=== PATIENT | male | born 1965 | race Caucasian/White ===

== ENCOUNTER 2019-10-06 19:57 | Emergency (ER) | payer BC, SELFPAY ==
[2019-10-06 20:22] VITALS: BP 169/116; RESP 16; TEMP 37.1; O2SAT 98; BMI 26.5
--- NOTE | 2019-10-06 20:29 | XR_ITS ---
PROCEDURE: XR CHEST 2V CLINICAL HISTORY: chest pain COMPARISON: CSW3D CT CALCIUM SCORING W/3D from 11/29/2016 FINDINGS: The cardiomediastinal silhouette and pulmonary vascularity are within normal limits. The lungs are clear without infiltrates, suspicious nodules, or pleural effusions. Midthoracic scoliosis convex right. There is mild wedging what appears to represent the T7 which is age indeterminate.. IMPRESSION: Mild wedging of T7 age indeterminate with mild midthoracic scoliosis convex right otherwise negative. MRI may provide further evaluation to determine the age of the mild compression changes at T7. Dictated by: Terry Murguia MD 10/07/2019 08:21 Electronically signed by Terry Murguia MD in [place] 10/07/2019 08:21
--- NOTE | 2019-10-06 20:30 | ECG_ITS ---
APPROVED REPORT Exam: Resting ECG HR:74 bpm ECG Measurements Heart Rate 74 AXES MA 162 P 64 QRSd 80 QRS 4 QT 378 T 39 QTc 419 <Conclusion> Sinus rhythm with frequent premature ventricular complexes Possible Left atrial enlargement Left ventricular hypertrophy Abnormal ECG Electronically signed by : Wily Wade, 10/07/2019 10:52:36
[2019-10-06 20:36] LABS: Basophils # 0.1 K/mm3 (0-0.2); Eosinophils # 0.1 K/mm3 (0.0-0.4); Eosinophils % 1.5 % (0.1-12.0); Hematocrit 47.7 % (42.0-52.0); Hemoglobin 16.3 g/dL (14.1-18.0); Lymphocytes # 2.1 K/mm3 (0.7-4.5); Lymphocytes % 31.2 % (10-50); Mean Corpuscular HGB Conc 34.2 g/dL (31.8-35.4); Mean Corpuscular Hemoglobin 33.3 pg (27.0-31.2); Mean Corpuscular Volume 97.5 fl (80-94); Mean Platelet Volume 8.9 fl (7.4-10.4); Monocytes # 0.3 K/mm3 (0.1-1.0); Monocytes % 4.9 % (1.7-9.3); Neutrophils # 4.2 K/mm3 (1.8-7.8); Neutrophils % 61.3 % (37.0-80.0); Platelet Count 190 K/mm3 (142-424); Red Cell Distribution Width 13.2 % (11.5-17.5); White Blood Count 6.9 K/mm3 (4.8-10.8)
[2019-10-06 20:44] LABS: Alanine Aminotransferase 50 U/L (12-78); Albumin Level 5.2 g/dl (3.5-5.0); Albumin/Globulin Ratio 1.5 (1.1-1.8); Alkaline Phosphatase 73 U/L (38-126); Anion Gap 9.9 mEq/L (5-15); Aspartate Amino Transferase 55 U/L (17-59); Blood Urea Nitrogen 14 mg/dl (9-20); Calcium 10.5 mg/dl (8.4-10.2); Carbon Dioxide 29 mmol/L (22.0-30.0); Chloride 103 mmol/L (98-107); Creatinine Clearance Estimated 90 mL/min (50-200); Estimated Glomerular Filt Rate 69 ml/min (>60); GFR (African American) 84 ML/MIN (>60); Globulin 3.4 g/dL (1.3-3.2); Glucose 94 mg/dl (74-100); Potassium 3.9 mmoL/L (3.5-5.1); Sodium 138 mmol/L (136-145); Total Protein,Serum 8.6 g/dl (6.3-8.2)
[2019-10-06 20:58] LABS: Troponin I < 0.01 ng/ml (0.00-0.034)
--- NOTE | 2019-10-06 21:00 | HMH.EDCP ---
ED Disposition Clinical Impression: Atypical chest pain, Anxiety Gastroesophageal reflux disease Qualifiers: Esophagitis presence: esophagitis presence not specified Qualified Code(s): K21.9 - Gastro-esophageal reflux disease without esophagitis Disposition: Home, Self-Care Condition on Discharge: Good Instructions: DI for Atypical Chest Pain Additional Instructions: call pcp in am Referrals: Lili Frank PA [Primary Care Provider] - - Critical Care Critical Care Time: No Attestation: On 10/06/19, the high probability of a clinically significant, sudden or life threatening deterioration of the following system(s) required my full and direct attention, intervention and personal management. The time I documented below is in addition to time spent performing reported procedures but includes the following listed in this critical care notation. Medical Decision Making - Medical Records Medical records reviewed: Yes: I reviewed the patient's medical records. - Moustapha Inquiry Pt receiving controlled substance: No Vital Signs: 10/06/19 20:22 Temperature 98.8 F Temperature Source Oral Respiratory Rate 16 Blood Pressure [Right Arm] 169/116 H Blood Pressure Mean [Right Arm] 133 Blood Pressure Source [Right Arm] Automatic Cuff Blood Pressure Position [Right Arm] Sitting 02 Sat by Pulse Oximetry 98 Oxygen Delivery Method Room Air - Lab Data Lab results reviewed: Yes: I reviewed the patient's lab results. Lab Results 10/06/19 20:20: WBC 6.9, RBC 4.90, Hgb 16.3, Hct 47.7, MCV 97.5 H, MCH 33.3 H, MCHC 34.2, RDW 13.2, Plt Count 190, MPV 8.9, Neut % (Auto) 61.3, Lymph % (Auto) 31.2, [place] % (Auto) 4.9, Eos % (Auto) 1.5, Baso % (Auto) 1.0, Neut # (Auto) 4.2, Lymph # (Auto) 2.1, [place] # (Auto) 0.3, Eos # (Auto) 0.1, Baso # (Auto) 0.1 10/06/19 20:20: Sodium 138, Potassium 3.9, Chloride 103, Carbon Dioxide 29, Anion Gap 9.9, BUN 14, Creatinine 1.10, Estimated Creat Clear 90, Estimated GFR 69, Est GFR ( Amer) 84, Glucose 94, Calcium 10.5 H, Total Bilirubin 1.0, AST 55, ALT 50, Alkaline Phosphatase 73, Troponin I < 0.01, Total Protein 8.6 H, Albumin 5.2 H, Globulin 3.4 H, Albumin/Globulin Ratio 1.5 Result diagrams: 10/06/19 20:20 10/06/19 20:20 Orders (Tests/Meds): ED MEDICATIONS Generic Name Dose Route Start Last Admin Trade Name Freq PRN Reason Stop Dose Admin Sodium Chloride 1,000 mls @ 999 mls/hr 10/06/19 20:45 10/06/19 21:04 Sod Chlor 0.9% 1000ml Bag IV 10/06/19 21:45 999 mls/hr .Q1H1M FRANCIA Administration Sodium Chloride 8 ml 10/06/19 20:32 Sodium Chloride 0.9% 10ml Vial IV 11/05/19 20:31 NEEDED PRN dilute pepcid Discontinued Medications Generic Name Dose Route Start Last Admin Trade Name Freq PRN Reason Stop Dose Admin Famotidine 20 mg 10/06/19 20:32 10/06/19 20:35 Pepcid 20mg/2ml Vial IV 10/06/19 20:33 20 mg ONCE ONE Administration Metoclopramide HCl 10 mg 10/06/19 20:32 10/06/19 20:35 Reglan 10mg/2ml Vial IVP 10/06/19 20:33 10 mg ONCE ONE Administration ORDERS Category Date Time Status XR chest 2V Stat Exams 10/06/19 20:29 Ordered Lipase Stat Lab 10/06/19 20:29 Received Troponin I Q3H Lab 10/06/19 23:30 Ordered Troponin I Q3H Lab 10/07/19 02:30 Ordered - Radiology Data #1 Image(s): Chest Image Reviewed: Yes I reviewed the patient's radiology image Preliminary Findings: Normal/NAD - ECG Data Tracing #1 Normal Sinus Rhythm: Yes Ischemic changes: non-specific ST-T wave changes - Reevaluation(s) Time: 21:37 Reevaluation #1: improved Chest Pain HPI - General Chief Complaint: Chest Pain Stated Complaint: pain in stomach,left leg pain Time Seen by Provider: 10/06/19 20:30 Mode of Arrival: Ambulatory Source of Information: Patient, Medical Record Limitations: No Limitations Description of Symptoms (Recalled from ER Triage Doc. by RN): Patient reports epigastic pain that goes up into hi
--- NOTE | 2019-10-06 21:15 | PC.NURSE ---
notified wade porter of orders
[2019-10-06 21:52] LABS: Lipase 79 U/L (23-300)
[2019-10-06 22:05] VITALS: BP 153/115; PULSE 66; RESP 14; TEMP 37.1; O2SAT 96
== END 2019-10-06 22:06 | disposition home or self-care (01) ==
PROVIDERS: Emergency Provider Emergency Medicine; PCP Physician Assistant
DX: R07.89 Other chest pain (principal); F41.9 Anxiety disorder, unspecified; K21.9 Gastro-esophageal reflux disease without esophagitis; E78.5 Hyperlipidemia, unspecified; I10 Essential (primary) hypertension; Z79.899 Other long term (current) drug therapy
CPT/HCPCS: 71046; 80053; 83690; 84484; 85025; 93005; 96365; 96375; 99283

== ENCOUNTER → 2019-10-22 08:38 | Outpatient (CLI) | payer BC, SELFPAY ==
--- NOTE | 2019-10-22 08:38 | MR_ITS ---
PROCEDURE: MR KNEE LT WO CON CLINICAL INDICATION: Left knee pain Left knee pain with swelling and instability COMPARISON: No exams were available for comparison TECHNIQUE: Routine multiplanar multi echo sequences are performed without gadolinium enhancement. FINDINGS: The cruciate ligaments, collateral ligaments, patellar tendon, and quadriceps tendon have an unremarkable appearance. The patellar cartilage is preserved. Patella is in good location. There is linear increased T2 signal involving the posterior horn of the medial meniscus. This however does not communicate with the articular surface of the meniscus and does not meet strict MRI criteria for meniscal tear. The lateral meniscus has an unremarkable appearance. There is a small amount of fluid in the knee joint. No bone bruise or fracture evident. IMPRESSION: No evidence of internal derangement. Small amount of fluid in the knee joint. Dictated by: Terry Murguia MD 10/24/2019 15:07 Electronically signed by Terry Murguia MD in [place] 10/24/2019 15:07
== END ==
PROVIDERS: PCP Physician Assistant; Visit Provider Physician Assistant
DX: M25.562 Pain in left knee (principal)
CPT/HCPCS: 73721

== ENCOUNTER → 2019-11-04 08:57 | Outpatient (CLI) | payer BC, SELFPAY ==
--- NOTE | 2019-11-04 09:00 | XR_ITS ---
PROCEDURE: XR KNEE LT 4V CLINICAL INDICATION: left knee pain COMPARISON: No exams were available for comparison FINDINGS: No fracture or dislocation. No lytic or blastic change. There is normal mineralization. The joint spaces are well-preserved. No significant degenerative/arthritic changes. No erosive changes evident. Other findings:None. IMPRESSION: No acute findings. Dictated by: Bhavin Harrison 11/04/2019 09:35 Electronically signed by Bhavin Harrison in [place] 11/04/2019 09:35
--- NOTE | 2019-11-04 11:00 | XR_ITS ---
PROCEDURE: XR HIP LT 2-3V W/PELVIS CLINICAL INDICATION: lt knee; lt hip pain COMPARISON: No exams were available for comparison FINDINGS: Left hip joint is unremarkable. There are no significant degenerative changes. There is no fracture, dislocation, or soft tissue abnormalities. SI joints are unremarkable. IMPRESSION: Negative Note: If a subtle fracture suspected an MR scan recommended. Dictated by: Bhavin Harrison 11/04/2019 11:19 Electronically signed by Bhavin Harrison in [place] 11/04/2019 11:19
== END ==
PROVIDERS: PCP Physician Assistant; Visit Provider Orthopaedic Surgery
DX: M25.552 Pain in left hip; M25.562 Pain in left knee
CPT/HCPCS: 73502; 73564

== ENCOUNTER 2019-11-10 17:56 | Emergency (ER) | payer BC, SELFPAY ==
[2019-11-10 17:57] VITALS: BP 150/104; PULSE 75; RESP 18; TEMP 36.7; O2SAT 97; BMI 27.1
--- NOTE | 2019-11-10 18:19 | ECG_ITS ---
APPROVED REPORT Exam: Resting ECG HR:66 bpm ECG Measurements Heart Rate 66 AXES OR 154 P 69 QRSd 84 QRS 11 QT 390 T 50 QTc 408 <Conclusion> Normal sinus rhythm Normal ECG Electronically signed by : Jose C Wiley, 11/16/2019 17:16:35
--- NOTE | 2019-11-10 18:19 | XR_ITS ---
PROCEDURE: XR CHEST 2V CLINICAL HISTORY: SPASMS UNDER LT BREAST Chest pain COMPARISON: XR CHEST 2V from 10/06/2019 FINDINGS: The cardiomediastinal silhouette and pulmonary vascularity are within normal limits. The lungs are clear without infiltrates, suspicious nodules, or pleural effusions. No acute bony abnormalities. IMPRESSION: No acute findings. Dictated by: Terry Murguia MD 11/11/2019 07:58 Electronically signed by Terry Murguia MD in [place] 11/11/2019 07:58
[2019-11-10 18:46] LABS: Basophils % 0.4 % (0.1-2.0); Eosinophils # 0.1 K/mm3 (0.0-0.4); Eosinophils % 1.4 % (0.1-12.0); Lymphocytes # 2.3 K/mm3 (0.7-4.5); Lymphocytes % 23.4 % (10-50); Mean Corpuscular HGB Conc 34.2 g/dL (31.8-35.4); Mean Corpuscular Hemoglobin 33.5 pg (27.0-31.2); Mean Corpuscular Volume 97.9 fl (80-94); Mean Platelet Volume 8.5 fl (7.4-10.4); Monocytes # 0.5 K/mm3 (0.1-1.0); Monocytes % 4.7 % (1.7-9.3); Neutrophils # 6.9 K/mm3 (1.8-7.8); Neutrophils % 70.1 % (37.0-80.0); Platelet Count 223 K/mm3 (142-424); Red Blood Count 4.79 M/mm3 (4.60-6.20); Red Cell Distribution Width 12.6 % (11.5-17.5); White Blood Count 9.9 K/mm3 (4.8-10.8)
[2019-11-10 18:56] LABS: Chloride 106 mmol/L (98-107); Sodium 140 mmol/L (136-145)
[2019-11-10 18:57] LABS: Potassium 3.8 mmoL/L (3.5-5.1)
[2019-11-10 18:59] LABS: Alanine Aminotransferase 54 U/L (12-78); Albumin Level 4.6 g/dl (3.5-5.0); Albumin/Globulin Ratio 1.5 (1.1-1.8); Alkaline Phosphatase 74 U/L (38-126); Anion Gap 10.8 mEq/L (5-15); Aspartate Amino Transferase 49 U/L (17-59); Bilirubin,Total 0.8 mg/dl (0.2-1.3); Blood Urea Nitrogen 14 mg/dl (9-20); Carbon Dioxide 27 mmol/L (22.0-30.0); Creatinine Clearance Estimated 90 mL/min (50-200); Estimated Glomerular Filt Rate 69 ml/min (>60); GFR (African American) 84 ML/MIN (>60); Total Protein,Serum 7.6 g/dl (6.3-8.2)
[2019-11-10 19:00] LABS: Calcium 10.4 mg/dl (8.4-10.2); Glucose 97 mg/dl (74-100)
[2019-11-10 19:13] LABS: Troponin I < 0.01 ng/ml (0.00-0.034)
[2019-11-10 19:19] VITALS: BP 172/110; PULSE 70; O2SAT 96
--- NOTE | 2019-11-10 19:29 | HMH.EDGENADL ---
ED Disposition Clinical Impression: Gastroesophageal reflux disease Disposition: Home, Self-Care Condition on Discharge: Good Instructions: How to Measure Pain-Child Prescriptions: Promethazine HCl 50 mg PO TID 6 Days #20 tab Transmission Status: Pending to [id number] Pantoprazole Sodium [Protonix 40mg tablet] 40 mg PO DAILY 30 Days #30 tab Transmission Status: Pending to [id number] Referrals: Lili Frank PA [Primary Care Provider] - - Critical Care Critical Care Time: No Attestation: On 11/10/19, the high probability of a clinically significant, sudden or life threatening deterioration of the following system(s) required my full and direct attention, intervention and personal management. The time I documented below is in addition to time spent performing reported procedures but includes the following listed in this critical care notation. Medical Decision Making - Medical Records Medical records reviewed: Yes: I reviewed the patient's medical records. - Moustapha Inquiry Pt receiving controlled substance: No Vital Signs: 11/10/19 17:57 11/10/19 19:19 Temperature 98.1 F Temperature Source Oral Pulse Rate [Right Radial] 75 70 Respiratory Rate 18 Blood Pressure [Right Arm] 150/104 H 172/110 H Blood Pressure Mean [Right Arm] 119 130 Blood Pressure Source [Right Arm] Automatic Cuff Blood Pressure Position [Right Arm] Sitting 02 Sat by Pulse Oximetry 97 96 Oxygen Delivery Method Room Air - Lab Data Lab results reviewed: Yes: I reviewed the patient's lab results. Lab Results 11/10/19 18:35: WBC 9.9, RBC 4.79, Hgb 16.0, Hct 47.0, MCV 97.9 H, MCH 33.5 H, MCHC 34.2, RDW 12.6, Plt Count 223, MPV 8.5, Neut % (Auto) 70.1, Lymph % (Auto) 23.4, [place] % (Auto) 4.7, Eos % (Auto) 1.4, Baso % (Auto) 0.4, Neut # (Auto) 6.9, Lymph # (Auto) 2.3, [place] # (Auto) 0.5, Eos # (Auto) 0.1, Baso # (Auto) 0.0 11/10/19 18:35: Sodium 140, Potassium 3.8, Chloride 106, Carbon Dioxide 27, Anion Gap 10.8, BUN 14, Creatinine 1.10, Estimated Creat Clear 90, Estimated GFR 69, Est GFR ( Amer) 84, Glucose 97, Calcium 10.4 H, Total Bilirubin 0.8, AST 49, ALT 54, Alkaline Phosphatase 74, Troponin I < 0.01, Total Protein 7.6, Albumin 4.6, Globulin 3.0, Albumin/Globulin Ratio 1.5 Result diagrams: 11/10/19 18:35 11/10/19 18:35 Orders (Tests/Meds): ED MEDICATIONS Generic Name Dose Route Start Last Admin Trade Name Freq PRN Reason Stop Dose Admin Sodium Chloride 10 ml 11/10/19 18:20 Sodium Chloride 0.9% 10ml Vial IV 12/10/19 18:19 NEEDED PRN dilute protonix Discontinued Medications Generic Name Dose Route Start Last Admin Trade Name Freq PRN Reason Stop Dose Admin Belladonna Alkaloids 60 ml 11/10/19 18:20 11/10/19 18:33 Gi Cocktail 60ml Udc PO 11/10/19 18:21 60 ml ONCE ONE Administration Diazepam 10 mg 11/10/19 19:26 11/10/19 19:28 Valium 10mg Tablet PO 11/10/19 19:27 10 mg ONCE ONE Administration Pantoprazole Sodium 40 mg 11/10/19 18:20 11/10/19 18:33 Protonix 40mg Vial IV 11/10/19 18:21 40 mg ONCE ONE Administration ORDERS Category Date Time Status Chest XR 2 view (NOT portable) [XR chest 2V] Stat Exams 11/10/19 18:19 Taken Troponin I Q3H Lab 11/10/19 21:30 Ordered Troponin I Q3H Lab 11/11/19 00:30 Ordered - Radiology Data #1 Image(s): Chest Preliminary Findings: Normal/NAD General Adult HPI - General Chief complaint: PAIN Stated complaint: periodic sob Time Seen by Provider: 11/10/19 19:29 Mode of Arrival: Ambulatory Source of Information: Patient Limitations: No Limitations Description of Symptoms (Recalled from ER Triage Doc. by RN): PT STATES THAT SINCE YESTERDAY HE HAS BEEN HAVING AN OCCASIONAL SPASM FEELING IN THE UPPER LT EPIGASTRIC REGION, BELOW HIS LT BREAST. PT STATES THAT IT IS NOT IN HIS CHEST. PT STATES THAT WHEN THE SPASM OCCURS, IT TAKES HIS BREATH AND HE BECOMES SOA. PT REPO
[2019-11-10 19:41] VITALS: BP 131/98; PULSE 70; RESP 18; TEMP 36.7; O2SAT 97
== END 2019-11-10 19:44 | disposition home or self-care (01) ==
PROVIDERS: Emergency Provider Family Medicine; PCP Physician Assistant
DX: K21.9 Gastro-esophageal reflux disease without esophagitis (principal); E78.5 Hyperlipidemia, unspecified; I10 Essential (primary) hypertension; F41.9 Anxiety disorder, unspecified; Z79.899 Other long term (current) drug therapy
CPT/HCPCS: 71046; 80053; 84484; 85025; 93005; 96374; 99283

== ENCOUNTER → 2019-11-23 11:07 | Outpatient (CLI) | payer BC, SELFPAY ==
[2019-11-24 20:50] LABS: Covid-19 Nasal PCR Sendout Lex Not Detected
== END ==
PROVIDERS: PCP Physician Assistant; Visit Provider Physician Assistant
DX: Z03.818 Encounter for observation for suspected exposure to other biological agents ruled out (principal)
CPT/HCPCS: U0004

== ENCOUNTER → 2020-03-08 17:03 | Outpatient (CLI) | payer BC, SELFPAY ==
[2020-03-08 17:30] LABS: Basophils # 0.1 K/mm3 (0-0.2); Basophils % 1.4 % (0.1-2.0); Eosinophils # 0.4 K/mm3 (0.0-0.4); Eosinophils % 7.2 % (0.1-12.0); Hemoglobin 16.7 g/dL (14.1-18.0); Lymphocytes # 1.6 K/mm3 (0.7-4.5); Lymphocytes % 30.3 % (10-50); Mean Corpuscular HGB Conc 33.3 g/dL (31.8-35.4); Mean Corpuscular Hemoglobin 33.3 pg (27.0-31.2); Mean Corpuscular Volume 99.9 fl (80-94); Mean Platelet Volume 11.1 fl (7.4-10.4); Monocytes # 0.3 K/mm3 (0.1-1.0); Monocytes % 6.1 % (1.7-9.3); Neutrophils # 2.9 K/mm3 (1.8-7.8); Platelet Count 203 K/mm3 (142-424); Red Blood Count 5.01 M/mm3 (4.60-6.20); Red Cell Distribution Width 13.1 % (11.5-17.5); White Blood Count 5.2 K/mm3 (4.8-10.8)
[2020-03-08 17:37] LABS: Alanine Aminotransferase 43 U/L (12-78); Albumin Level 4.5 g/dl (3.5-5.0); Albumin/Globulin Ratio 1.5 (1.1-1.8); Alkaline Phosphatase 84 U/L (38-126); Anion Gap 15.4 mEq/L (5-15); Aspartate Amino Transferase 44 U/L (17-59); Bilirubin,Total 0.5 mg/dl (0.2-1.3); Blood Urea Nitrogen 15 mg/dl (9-20); Calcium 10.2 mg/dl (8.4-10.2); Carbon Dioxide 24 mmol/L (22.0-30.0); Chloride 106 mmol/L (98-107); Chol/HDL Ratio 5.5 (1-3.5); Cholesterol 262 mg/dl (140-200); Estimated Glomerular Filt Rate 63 ml/min (>60); GFR (African American) 76 ML/MIN (>60); Globulin 3.1 g/dL (1.3-3.2); Glucose 95 mg/dl (74-100); HDL Cholesterol 48 mg/dl (40-60); Potassium 4.4 mmoL/L (3.5-5.1); Sodium 141 mmol/L (136-145); Total Protein,Serum 7.6 g/dl (6.3-8.2); Triglycerides 200 mg/dl (30-150); VLDL Cholesterol 40 mg/dL (0-40)
[2020-03-08 17:48] LABS: Direct LDL Cholesterol 179.89 mg/dL (100-129)
[2020-03-08 18:09] LABS: Thyroid Stimulating Hormone 2.09 uIU/mL (0.465-4.68)
[2020-03-15 09:33] LABS: Vitamin B12 268 pg/mL (239-931)
[2020-03-15 09:38] LABS: Folate 4.94 ng/mL
== END ==
PROVIDERS: Visit Provider Physician Assistant
DX: E78.5 Hyperlipidemia, unspecified (principal); I10 Essential (primary) hypertension; E55.9 Vitamin D deficiency, unspecified
CPT/HCPCS: 80053; 80061; 82306; 82607; 82746; 84443; 85025

== ENCOUNTER 2020-04-04 09:17 | Emergency (ER) | payer BC, SELFPAY ==
[2020-04-04 09:20] VITALS: BP 161/86; PULSE 65; RESP 20; TEMP 36.9; O2SAT 96; BMI 26.4
[2020-04-04 09:22] VITALS: BP 154/98; PULSE 75; RESP 18; O2SAT 96; BMI 26.4
--- NOTE | 2020-04-04 09:39 | HMH.EDUTC ---
[facility] [place] Clinical Impression: Knee pain Qualifiers: Chronicity: chronic Laterality: left Qualified Code(s): M25.562 - Pain in left knee Disposition: Home, Self-Care Condition on Discharge: Good Instructions: How to Use Crutches, How to Apply an [place] Wrap, DI for Knee Pain Additional Instructions: *weight bearing as tolerated *RICE, Rest the extremity, Ice 15-20 minutes 3-4 times daily, Compress- wear the [place] wrap as discussed as much as possible to help reduce swelling and pain, Elevate the extremity when at rest *[place] wrap is for support and help control swelling, use it except in the shower. Be sure that is not to tight but not to loose either *Elevate when resting *Ibuprofen 600-800mg every 6-8 hours as needed for pain an inflammation. If need something more can take Tylenol in between doses of Ibuprofen to help Immediately follow up with your family doctor for new or worsening of symptoms, or no noticeable improvement over the next 3-5 days Follow up with Orthopedics as scheduled Return if needed Straight to ER if any life threatening symptoms Referrals: Lili Frank PA [Primary Care Provider] - As needed Hitesh Recinos MD [Staff Physician] - 04/12/20 2:45 pm Forms: Work/School Release Time of Disposition: 09:59 Medical Decision Making - Moustapha Inquiry Pt receiving controlled substance: No Moustapha was queried for this patient: No Vital Signs: 04/04/20 09:20 04/04/20 09:22 04/04/20 10:08 Temperature 98.5 F 98.5 F Temperature Source Oral Pulse Rate 75 Pulse Rate [Radial] 65 75 Respiratory Rate 20 18 20 Blood Pressure 154/98 H Blood Pressure [Right Arm] 161/86 H 154/98 H Blood Pressure Mean [Right Arm] 111 116 Blood Pressure Source [Right Arm] Automatic Cuff Automatic Cuff Blood Pressure Position [Right Arm] Sitting Sitting 02 Sat by Pulse Oximetry 96 96 Oxygen Delivery Method Room Air Room Air - Physician Consults Physician Consulted: Jorje Time: 09:48 Reason -: Orthopedic Eval/Care Comment/Response: Spoke with Dr Recinos office and confirmed appointment for Apr 12 2020 at 245pm Medical Decision Narrative: Discussed xray with patient and he declined States that he has had multiple xrays and MRI States that he has been having more pain on and off in the leg and feeling like it is going to give out wanted to get some crutches to see if would help and let it rest [facility] [place] - General Stated complaint: left leg pain and burning sensation,no accident Time Seen by Provider: 04/04/20 09:39 Mode of Arrival: Ambulatory Source of Information: Patient Limitations: No Limitations Description of Symptoms (Recalled from Triage Doc. by RN): Complaint of left leg burning and giving out. States he is seen by Dr. Recinos and his shot is wearing off. - History of Present Illness Provider Complaint: Patient states that sometimes he has to go to his pcp and Ortho for this pain States that she has been seeing Dr Recinos for this pain and he give him some injections in his hip and knee States that he feels like the shots are wearing off so he come in to see if he could get something to wrap his knee and some crutches States that he feels like the leg is going to give out on him and he wanted some crutches to help with walking and concerned with working until he can see Dr Recinos on Apr 12 - Related Data Home Medications Medication Instructions Recorded Confirmed Atorvastatin Calcium [Lipitor 10mg 10 mg PO HS 04/04/20 04/04/20 Tab] Metoprolol Succinate [Metoprolol 100 mg PO DAILY 04/04/20 04/04/20 Succinate 100mg Tablet*] Allergies Allergy/AdvReac Type Severity Reaction Status Date / Time No Known Allergies Allergy Verified 03/08/20 10:08 - Worker's Comp Is this a Worker's Comp case?: No [facility] History - Hepatitis A Screen Drug use history?: No High risk sexual behaviors?: No History of sexually transmitted infection?: No 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
[2020-04-04 10:08] VITALS: BP 154/98; PULSE 75; RESP 20; TEMP 36.9; O2SAT 96
== END 2020-04-04 10:15 | disposition home or self-care (01) ==
PROVIDERS: Emergency Provider Nurse Practitioner; PCP Physician Assistant
DX: M25.562 Pain in left knee (principal); I10 Essential (primary) hypertension; F41.9 Anxiety disorder, unspecified; K21.9 Gastro-esophageal reflux disease without esophagitis; E78.5 Hyperlipidemia, unspecified
CPT/HCPCS: 99201

== ENCOUNTER → 2020-06-20 14:24 | Outpatient (CLI) | payer BC, SELFPAY ==
[2020-06-20 15:47] LABS: Amphetamine/Metha Screen,Urine Negative ng/ml (<1000); Barbiturates Screen,Urine Negative ng/ml (<200)
[2020-06-20 15:49] LABS: Benzodiazepines Screen,Urine Positive ng/ml (<200)
[2020-06-20 15:50] LABS: Cannabinoid Screen,Urine Negative ng/ml (<50)
[2020-06-20 15:51] LABS: Cocaine Screen,Urine Negative ng/ml (<300); Methadone Screen,Urine Negative ng/ml (<300)
[2020-06-20 15:52] LABS: Opiate Screen,Urine Negative ng/ml (<300); Phencyclidine Screen,Urine Negative ng/ml (<25)
== END ==
PROVIDERS: Visit Provider Physician Assistant
DX: Z79.899 Other long term (current) drug therapy (principal)
CPT/HCPCS: 80305

== ENCOUNTER → 2020-10-18 15:34 | Outpatient (CLI) | payer BC, SELFPAY ==
[2020-10-18 15:45] LABS: Basophils % 0.8 % (0.1-2.0); Eosinophils # 0.2 K/mm3 (0.0-0.4); Eosinophils % 3.2 % (0.1-12.0); Hematocrit 45.3 % (42.0-52.0); Hemoglobin 15.1 g/dL (14.1-18.0); Lymphocytes # 1.3 K/mm3 (0.7-4.5); Lymphocytes % 26.2 % (10-50); Mean Corpuscular HGB Conc 33.4 g/dL (31.8-35.4); Mean Corpuscular Hemoglobin 32.5 pg (27.0-31.2); Mean Corpuscular Volume 97.3 fl (80-94); Mean Platelet Volume 10.1 fl (7.4-10.4); Monocytes # 0.3 K/mm3 (0.1-1.0); Monocytes % 6.9 % (1.7-9.3); Neutrophils # 3.1 K/mm3 (1.8-7.8); Platelet Count 191 K/mm3 (142-424); Red Blood Count 4.65 M/mm3 (4.60-6.20); Red Cell Distribution Width 12.5 % (11.5-17.5); White Blood Count 4.9 K/mm3 (4.8-10.8)
[2020-10-18 15:51] LABS: Alanine Aminotransferase 31 U/L (12-78); Albumin Level 4.2 g/dl (3.5-5.0); Albumin/Globulin Ratio 1.6 (1.1-1.8); Alkaline Phosphatase 78 U/L (38-126); Anion Gap 10.6 mEq/L (5-15); Aspartate Amino Transferase 38 U/L (17-59); Bilirubin,Total 0.5 mg/dl (0.2-1.3); Blood Urea Nitrogen 8 mg/dl (9-20); Calcium 9.4 mg/dl (8.4-10.2); Carbon Dioxide 29 mmol/L (22.0-30.0); Chloride 106 mmol/L (98-107); Chol/HDL Ratio 2.8 (1-3.5); Cholesterol 122 mg/dl (140-200); Estimated Glomerular Filt Rate 69 ml/min (>60); GFR (African American) 84 ML/MIN (>60); Globulin 2.6 g/dL (1.3-3.2); Glucose 91 mg/dl (74-100); HDL Cholesterol 44 mg/dl (40-60); Potassium 4.6 mmoL/L (3.5-5.1); Sodium 141 mmol/L (136-145); Total Protein,Serum 6.8 g/dl (6.3-8.2); Triglycerides 99 mg/dl (30-150); VLDL Cholesterol 20 mg/dL (0-40)
[2020-10-18 16:03] LABS: Direct LDL Cholesterol 57.86 mg/dL (100-129)
[2020-10-18 16:08] LABS: 25-OH Vitamin D, Total 19.9 ng/mL (30-100)
[2020-10-18 16:23] LABS: Prostate Specific Ag Screen 0.9 ng/ml (0.0-4.0); Thyroid Stimulating Hormone 2.26 uIU/mL (0.465-4.68)
== END ==
PROVIDERS: Visit Provider Physician Assistant
DX: K21.9 Gastro-esophageal reflux disease without esophagitis (principal); E78.5 Hyperlipidemia, unspecified; I10 Essential (primary) hypertension; F41.9 Anxiety disorder, unspecified; Z00.00 Encounter for general adult medical examination without abnormal findings; E55.9 Vitamin D deficiency, unspecified; Z12.5 Encounter for screening for malignant neoplasm of prostate
CPT/HCPCS: 80053; 80061; 82306; 84439; 84443; 85025; G0103

== ENCOUNTER → 2020-12-23 13:46 | Outpatient (CLI) | payer BC, SELFPAY | PROVIDERS: Visit Provider Internal Medicine Gastroenterology | DX: Z01.812 Encounter for preprocedural laboratory examination (principal); Z20.822 Contact with and (suspected) exposure to COVID-19; Z13.810 Encounter for screening for upper gastrointestinal disorder; Z12.11 Encounter for screening for malignant neoplasm of colon | CPT/HCPCS: U0003 ==

== ENCOUNTER 2020-12-26 08:07 | Day surgery (SDC) | payer BC, SELFPAY ==
[2020-12-21 11:39] VITALS: BMI 25.8
[2020-12-26 08:47] VITALS: BP 152/99; PULSE 81; RESP 16; TEMP 36.4; O2SAT 98
[2020-12-26 09:22] VITALS: O2SAT 98
--- NOTE | 2020-12-26 09:27 | HMH.ANESCL ---
[facility] Anesthesia Checklist - Patient Identification Patient Identification: Arm Band - Structural Data Admitted From: Home Planned Operative Procedure/s: egd/colonoscopy Consent for Planned Operative Procedure(s) Verified: Yes Verified Documents: Surgical Consent, History and Physical - NPO Status Verified Time NPO: 00:00 - Additional verifications Anesthesia Reactions: No - Airway Assessment C-Spine Mobility Assessed: Yes (mp2) TMJ Mobility Assessed: Yes Dentition: Poor Dentition - Neurological Assessment Level of Consciousness: Awake, Alert - Anesthesia Plan Anesthesia Risk discussed: Yes Anesthesia Plan: Verified ASA Class: II Anesthesia Type: MAC [facility] History I have reviewed the patient's past medical history: Yes Medical History: Reports:: Anxiety, Gastroesophageal Reflux Disease(GERD), Hyperlipidemia, Hypertension Denies:: Cancer, Diabetes Mellitus Type 1, Diabetes Mellitus Type 2, Internal Pacemaker, MRSA, Seizures *Have you ever received a pneumonia vaccine?: No *Have you received a flu vaccine this season?: No Other Medical History: Reports: Arthritis Anesthesia experience/problems:: nac Other Surgeries: Yes: No Previous Surgery, EGD, Other. No: Pacemaker Amputation: No Fractures: No - *Social History Last grade of school completed: High school graduate Smoking Status: Never smoker Tobacco Type: smokeless tobacco # Packs/Day (cigarettes): 0 Alcohol Intake: never Alcohol Intake Frequency:: holidays/special occasions only Substance Use Type: denies use *Occupational Status:: employed Household Members: family *Travel in the last 8 weeks: None - Psychiatric History Pschychiatric History:: Reports:: Anxiety Family Hx:: No significant family history
--- NOTE | 2020-12-26 09:52 | HMH.PROC ---
[facility] Procedure Note Procedure Note:: Upper Endoscopy Procedure Report: Esophagogastroduodenoscopy with cold biopsies and TTS balloon dilation Endoscopost: Fermin Rogers II, MD Referring Physician: Lili Frank PA-C Date of Procedure: December 26, 2020 Equipment: Olympus GIF 190 standard upper endoscope Sedation: MAC sedation Indications: Mr. Meraz is a 55-year-old gentleman who is here for diagnostic upper endoscopy and colonoscopy. He does report left upper quadrant abdominal discomfort and left precordial chest discomfort. This is intermittent. He also has had some unintentional weight loss which he attributes to the summer months when he is more active. He does have intermittent dysphagia and has had a prior endoscopy a few years ago with esophageal dilation. He reports no heartburn or reflux. He has tried omeprazole and pantoprazole with no significant improvement of his symptoms. He has regular bowel function. He reports no nausea or early satiety. He reports no bloating, gassiness or belching. He was given diazepam several years ago (Dr. Gage Lazcano) for colonic spasms. He reports no change in bowel function. His last cardiac evaluation was several years ago. Procedure: Prior to the procedure, a history and physical exam was performed, and patient's medications and allergies were reviewed. The risks, benefits and alternatives of the sedation and procedure were discussed with the patient. All questions were answered and informed consent was obtained. The patient was brought to the procedure room. Patient identification and proposed procedure were verified by the physician and the nurse. The patient was placed in a left lateral decubitus position and the scope was passed under direct vision. Throughout the procedure, the patient's blood pressure, pulse, and oxygen saturations were monitored continuously. The upper GI endoscopy was accomplished without difficulty. The patient tolerated the procedure well. Findings: The scope was passed directly into the upper esophagus and advanced to the third portion of the duodenum. The post bulbar duodenum and duodenal bulb were normal with normal mucosa and conniventes. There was mild peptic duodenitis of the duodenal bulb. The scope was withdrawn through a normal pylorus into the stomach. There was bile reflux with moderate linear reactive gastropathy of the antrum and body of the stomach. The remainder of the fundus of the stomach was grossly normal. Upon retroflexion there was a small 1 to 2 cm hiatal hernia. 2 biopsies were taken in the antrum and along the lesser curvature for histology to rule out gastritis and/or H pylori. The scope was then withdrawn into the esophagus. There was a serrated Z-line. Biopsies were taken from the GE junction. There was also evidence of a distal esophageal ring and mid/distal esophageal corrugation, striation and furrowing consistent with eosinophilic esophagitis. Biopsies were taken from the distal esophagus. Biopsies were taken separately from the proximal esophagus which appeared more normal. The entire esophagus was dilated to 20 mm/60 [place] with a TTS hydrostatic balloon. The remainder of the esophageal mucosa was normal. Impression: 1. Distal esophageal ring with corrugation and furrowing suggestive of eosinophilic esophagitis?status post dilation to 20 mm 2. Nonerosive GERD with small 1 to 2 cm hiatal hernia 3. Bile reflux with moderate linear reactive gastropathy and mild peptic duodenitis Plan: I will follow-up the biopsies to rule out eosinophilic esophagitis and H. pylori. I will discuss using higher dose PPI (omeprazole 40 mg daily to twice daily). I do feel that he may be having some esophageal spasm and dyspepsia. However, I do feel that he should have additional cardiac testing including stress testing. I will discuss this with the patient and family. I will proceed with diagnostic colonoscopy.
--- NOTE | 2020-12-26 10:08 | P.PCN_ITS ---
[facility] Procedure Note Procedure Note:: Colonoscopy Procedure Report: Colonoscopy Endoscopist: Fermin Rogers II, MD Referring physician: Lili Frank PA-C Date of Procedure: December 26, 2020 Equipment: Olympus 190 variable stiffness pediatric colonoscope Sedation: MAC sedation Indication: Mr. Meraz is a 55-year-old gentleman who is here for diagnostic colonoscopy. He reports left upper quadrant abdominal discomfort and left precordial chest discomfort. He reports regular bowel function. He reports no rectal bleeding or family history of colon cancer. He has had some unintentional weight loss this summer. He does state that Dr. Gage Lazcano had given him diazepam years ago for colonic spasm. He reports no gassiness or bloating. He has taken omeprazole and PPI therapy with no significant improvement of his symptoms. Procedure: Prior to the procedure, a history and physical exam was performed, and patient's medications and allergies were reviewed. The risks, benefits and alternatives of the sedation and procedure were discussed with the patient. All questions were answered and informed consent was obtained. The patient was brought to the procedure room. Patient identification and proposed procedure were verified by the physician and the nurse. The patient was placed in a left lateral decubitus position and the scope was passed under direct vision. Throughout the procedure, the patient's blood pressure, pulse, and oxygen saturations were monitored continuously. The colonoscopy was accomplished without difficulty. The patient tolerated the procedure well. Findings: On digital rectal examination there was normal rectal tone. There were no external hemorrhoids. The colonoscope was introduced through the anal canal to the rectum and advanced to the cecum. The ileocecal valve and appendiceal orifice were identified. The scope was advanced a short distance into the ileum which appeared grossly normal. The scope was then withdrawn into the colon. The cecum, ascending and transverse colon and mucosa were grossly normal. There were scattered diverticuli throughout the descending and sigmoid colon (LEFT colon). The rectum itself was normal. Upon retroflexion within the rectum there were grade 1-2 internal hemorrhoids. The preparation was fair to poor throughout with [place] Preparation Score of 6 out of 9. The cecal time was 10 minutes. Impression: 1. Left-sided diverticulosis 2. Fair to poor bowel preparation 3. Grade 1-2 internal hemorrhoids Plan: I would encourage dietary measures and fiber bowel regimen. We will discuss additional treatment options. 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 I would also recommend cardiac evaluation to rule out coronary angina.
[2020-12-26 10:12] VITALS: BP 93/63; PULSE 64; RESP 18; TEMP 36.1; O2SAT 95
[2020-12-26 10:22] VITALS: BP 95/55; PULSE 62; RESP 18; O2SAT 96
[2020-12-26 10:43] VITALS: BP 130/84; PULSE 60; RESP 18; O2SAT 96
--- NOTE | 2020-12-26 10:58 | SUR.PHASEII ---
DR. GONZALEZ WANTS PT TO BE SEE IN [facility] OFFICE FOR STRESS TEST. APPT WITH [facility] 01/04/21 @ 900. PT VERBALIZED UNDERSTANDING
== END 2020-12-26 10:58 | disposition hospice, home (50) ==
LOC: OUTP 08:08
PROVIDERS: PCP Physician Assistant; Visit Provider Internal Medicine Gastroenterology
PROC: 0DJ08ZZ Inspection of Upper Intestinal Tract, Via Natural or Artificial Opening Endoscopic (ICD-10-PCS; CPT 43235; principal; 2020-12-26 09:30)
DX: K22.2 Esophageal obstruction (principal); K21.9 Gastro-esophageal reflux disease without esophagitis; K44.9 Diaphragmatic hernia without obstruction or gangrene; K31.9 Disease of stomach and duodenum, unspecified; K29.80 Duodenitis without bleeding; Z87.19 Personal history of other diseases of the digestive system; E78.5 Hyperlipidemia, unspecified; I10 Essential (primary) hypertension; F41.9 Anxiety disorder, unspecified; M19.90 Unspecified osteoarthritis, unspecified site; Z79.899 Other long term (current) drug therapy; K57.30 Diverticulosis of large intestine without perforation or abscess without bleeding; K64.0 First degree hemorrhoids
CPT/HCPCS: 43239; 43249; 45378; C1726

== ENCOUNTER 2021-06-04 10:05 | Emergency (ER) | payer BC, SELFPAY ==
[2021-06-04 10:55] VITALS: BP 150/100; PULSE 96; RESP 16; TEMP 36.7; O2SAT 98; BMI 25.8
--- NOTE | 2021-06-04 12:04 | HMH.EDUTC ---
[facility] Disposition Clinical Impression: Influenza Disposition: Home, Self-Care Condition on Discharge: Good Instructions: How to Avoid a Cold or Flu, Influenza, DI for Influenza -- Adult Additional Instructions: *Monitor Temp, Over the counter Motrin or Tylenol as directed/as needed Tylenol every 4 hours and Motrin every 6 hours (as long as your family doctor has told you that you can take it) for fever or pain. and straight to ER if unable to lower temp less than 101.0 after medication given *Warm salt water gargles may help to soothe the throat *Throat Lozenges *Warm fluids like tea with honey may help to soothe the throat *Sleep elevated *Humidifier/Vaporizer Follow up IMMEDIATELY for new or worsening symptoms or no Noticeable improvement over the next 48-72 hours. 911 for difficulty breathing or swallowing You were tested for today for COVID19 your test result should be back in the next 24-48 hours, you may check your results on the [facility] [employer] [facility] Portal if you have trouble logging on you may call [employer] support for assistance You was given a handout with instructions for Self Quarantine and Self isolation for while you wait on test results and what to do if they are positive If you are positive the Health Dept will be contacting you also Make sure to take your Vitamins Vit. C Vit D and Zinc if you can take them Prescriptions: Oseltamivir Phosphate [Tamiflu 75mg Capsule] 75 mg PO BID #10 cap Transmission Status: Pending to [id number] Referrals: Lili Frank PA [Primary Care Provider] - As needed Forms: Work/School Release Medical Decision Making - Moustapha Inquiry Pt receiving controlled substance: No Moustapha was queried for this patient: No Vital Signs: 06/04/21 10:55 Temperature 98.0 F Temperature Source Oral Pulse Rate [Right] 96 H Respiratory Rate 16 Blood Pressure [Right Arm] 150/100 H Blood Pressure Mean [Right Arm] 116 Blood Pressure Source [Right Arm] Automatic Cuff Blood Pressure Position [Right Arm] Sitting 02 Sat by Pulse Oximetry 98 Oxygen Delivery Method Room Air - Lab Data Lab results reviewed: Yes: I reviewed the patient's lab results. Lab Results 06/04/21 12:07: Influenza Type A Ag Negative, Influenza Type B Ag Positive A Orders (Tests/Meds): ORDERS Category Date Time Status Covid-19 Nasal PCR ([facility]) Routine Lab 06/04/21 11:06 Received [facility] HPI - General Stated complaint: covid test Time Seen by Provider: 06/04/21 12:04 Mode of Arrival: Ambulatory Source of Information: Patient Limitations: No Limitations Description of Symptoms (Recalled from Triage Doc. by RN): pt c/o headache, chills, cough that started on HEENT Symptoms (Recalled from RN notes): No Resp Symptoms (Recalled from RN notes): No Skin Symptoms (Recalled from RN notes): No MS Symptoms (Recalled from RN notes): No Functional Status (Recalled from RN notes): na - History of Present Illness Provider Complaint: Patient state that he feels like he may have flu or COVID states that he has been having headache, chills and cough for the last few days State that he was worried that he may have flu or COVID so he wanted to get tested States that symptoms got worse yesterday - Related Data Home Medications Medication Instructions Recorded Confirmed Cholecalciferol (Vitamin D3) 25 mcg PO DAILY 12/21/20 01/12/21 [Vitamin D3 1,000 Unit Cap] omeprazole 20 mg capsule,delayed 20 mg PO DAILY 01/12/21 01/12/21 release Previous Rx's Medication Instructions Recorded atorvastatin 10 mg tablet 10 mg PO HS #90 tab 10/18/20 metoprolol succinate 100 mg 100 mg PO DAILY #90 tab 12/30/20 tablet,extended release 24 hr amoxicillin 875 mg tablet 875 mg PO BID #20 tab 02/01/21 diazepam 5 mg tablet 5 mg PO BID PRN #60 tab 03/14/21 Oseltamivir Phosphate [Tamiflu 75 mg PO BID #10 cap 06/04/21 75mg Capsule] Allergies Allergy/AdvReac Type Severity Reaction Status Date / Claudy
[2021-06-04 12:16] LABS: UTC Influenza A Antigen Negative (Negative)
[2021-06-04 12:17] LABS: UTC Influenza B Antigen Positive (Negative)
[2021-06-04 12:27] VITALS: BP 150/100; PULSE 96; RESP 16; TEMP 36.6
== END 2021-06-04 12:28 | disposition home or self-care (01) ==
PROVIDERS: Emergency Provider Nurse Practitioner; PCP Physician Assistant
DX: J10.1 Influenza due to other identified influenza virus with other respiratory manifestations (principal); F41.9 Anxiety disorder, unspecified; I10 Essential (primary) hypertension; K21.9 Gastro-esophageal reflux disease without esophagitis; E78.5 Hyperlipidemia, unspecified
CPT/HCPCS: 87804; 99202; C9803; G0463; U0003; U0005

== ENCOUNTER → 2021-10-25 12:18 | Outpatient (CLI) | payer BC, SELFPAY ==
--- NOTE | 2021-10-25 12:24 | XR_ITS ---
FINAL REPORT CLINICAL HISTORY: left anterior knee pain with swelling COMPARISON: 11/04/2019 FINDINGS: LEFT KNEE Five views were obtained. There is no acute fracture or dislocation. The joint spaces appear normal. No soft tissue abnormality is identified. IMPRESSION: No acute process. Reviewed, Interpreted and Dictated by Bobby Herr III, MD Transcribed by Yeny Wise Authenticated and [facility]
== END ==
PROVIDERS: PCP Physician Assistant; Visit Provider Orthopaedic Surgery
DX: M25.562 Pain in left knee (principal)
CPT/HCPCS: 73564

== ENCOUNTER 2021-11-06 06:41 | Emergency (ER) | payer BC, SELFPAY ==
[2021-11-06 06:42] VITALS: BP 161/98; PULSE 80; RESP 16; TEMP 36.8; O2SAT 99; BMI 26.5
[2021-11-06 07:30] VITALS: BP 129/97; PULSE 75; RESP 17; O2SAT 98
--- NOTE | 2021-11-06 07:31 | PC.NURSE ---
checked on pt at this time, pt states no needs at this time, pt sitting up on the side of the bed. Will continue to monitor
--- NOTE | 2021-11-06 07:55 | HMH.EDGENADL ---
ED Disposition Clinical Impression: Arthritis of knee, left Disposition: Home, Self-Care Condition on Discharge: Fair Instructions: DI for Chronic Pain -- Adult Additional Instructions: Follow-up with your primary care physician and/or orthopedist within the next few days if your pain does not improve. You may take Tylenol in addition to the medication that he has been prescribed today. Return to the emergency department if symptoms worsen. Prescriptions: Ketorolac Tromethamine [Toradol 10mg tablet] 10 mg PO TID PRN #21 tab MDD 40mg/day PRN Reason: pain Transmission Status: Pending to [id number] Referrals: Lili Frank PA [Primary Care Provider] - - Critical Care Critical Care Time: No Attestation: On 11/06/21, the high probability of a clinically significant, sudden or life threatening deterioration of the following system(s) required my full and direct attention, intervention and personal management. The time I documented below is in addition to time spent performing reported procedures but includes the following listed in this critical care notation. Medical Decision Making - Moustapha Inquiry Pt receiving controlled substance: No Vital Signs: 11/06/21 06:42 11/06/21 07:30 Temperature 98.2 F Temperature Source Oral Pulse Rate 75 Pulse Rate [Apical] 80 Respiratory Rate 16 17 Blood Pressure 129/97 H Blood Pressure [Right Arm] 161/98 H Blood Pressure Mean 104 Blood Pressure Mean [Right Arm] 119 Blood Pressure Source [Right Arm] Automatic Cuff Blood Pressure Position [Right Arm] Sitting 02 Sat by Pulse Oximetry 99 98 Oxygen Delivery Method Room Air Orders (Tests/Meds): ED MEDICATIONS Discontinued Medications Generic Name Dose Route Start Last Admin Trade Name Freq PRN Reason Stop Dose Admin Ketorolac Tromethamine 60 mg 11/06/21 08:03 11/06/21 08:18 Ketorolac 60mg/2ml Vial IM 11/06/21 08:04 60 mg ONCE ONE Administration Medical Decision Narrative: The patient presents to the emergency department complaining of chronic knee pain. Physical examination does not reveal any evidence for septic arthritis and or ischemic lower extremity or DVT. The pain seems to be secondary to arthritis. I feel that the patient can be safely discharged without any imaging or lab work-up. General Adult HPI - General Chief complaint: PAIN Stated complaint: left knee pain Time Seen by Provider: 11/06/21 07:56 Mode of Arrival: Ambulatory Limitations: No Limitations Description of Symptoms (Recalled from ER Triage Doc. by RN): Pt c/o left lateral knee pain for prior two years. States that he see's for this condition. States he received a cortisone shot on 10/24 in his knee but it didn't help with the pain, whereas it usually does. No redness or swelling noted. - History of Present Illness HPI narrative: The patient presents to the emergency department complaining of chronic knee pain for approximately 1-1/2 years. He is being seen by Dr. Recinos and has received steroid injections in this knee. His last visit was on the of this month. He states that the pain has not improved this time. He does not take any pain medication currently. He denies any fevers or recent injury. Onset (ago): year(s) (1.5) - Related Data Home Medications Medication Instructions Recorded Confirmed lisinopriL [Lisinopril] 10 mg PO DAILY 11/06/21 11/06/21 Previous Rx's Medication Instructions Recorded atorvastatin 10 mg tablet 10 mg PO HS #90 tab 10/03/21 diazepam 5 mg tablet 5 mg PO BID PRN #60 tab 10/03/21 metoprolol succinate 100 mg 100 mg PO DAILY #90 tab 10/03/21 tablet,extended release 24 hr Ketorolac Tromethamine [Toradol 10 mg PO TID PRN #21 tab MDD 11/06/21 10mg tablet] 40mg/day Allergies Allergy/AdvReac Type Severity Reaction Status Date / Time No Known Allergies Allergy Verified 10/25/21 13:06 [facility] History - Hepatitis A Sc
[2021-11-06 08:37] VITALS: BP 131/95; PULSE 78; RESP 16; TEMP 36.8; O2SAT 99
== END 2021-11-06 08:38 | disposition home or self-care (01) ==
PROVIDERS: Emergency Provider Emergency Medicine; PCP Physician Assistant
DX: M17.12 Unilateral primary osteoarthritis, left knee (principal); Z79.899 Other long term (current) drug therapy; F41.9 Anxiety disorder, unspecified; K21.9 Gastro-esophageal reflux disease without esophagitis; E78.5 Hyperlipidemia, unspecified; I10 Essential (primary) hypertension
CPT/HCPCS: 96372; 99283

== ENCOUNTER → 2021-11-20 13:20 | Outpatient (CLI) | payer BC, SELFPAY ==
--- NOTE | 2021-11-20 13:20 | MR_ITS ---
FINAL REPORT CLINICAL HISTORY: LT LATERAL KNEE PAIN AND SWELLING, NO KNOWN INJURY, FINDINGS: Multi planar MR imaging was performed of the left knee. The anterior and posterior cruciate ligaments are intact. The quadriceps and patellar tendons are intact. The medial and lateral menisci are intact without evidence of tear. The medial and lateral collateral ligaments appear intact. The medial and lateral retinacula appear intact. There is no evidence of bone marrow edema or osteochondral defect. There is a trace joint effusion. No evidence of soft tissue inflammatory reaction. IMPRESSION: Trace joint effusion, otherwise unremarkable exam. Reviewed, Interpreted and Dictated by Anthony Brooke MD Transcribed by Kiah Valladares Authenticated and [facility]
== END ==
PROVIDERS: PCP Physician Assistant; Visit Provider Orthopaedic Surgery
DX: M25.562 Pain in left knee (principal); G89.29 Other chronic pain
CPT/HCPCS: 73721

== ENCOUNTER → 2022-05-15 14:10 | Outpatient (CLI) | payer BC, SELFPAY | PROVIDERS: PCP Student in an Organized Health Care Education/Training Program; Visit Provider Student in an Organized Health Care Education/Training Program | DX: U07.1 COVID-19 (principal); R68.89 Other general symptoms and signs | CPT/HCPCS: C9803; U0003; U0005 ==

== ENCOUNTER → 2022-11-07 14:28 | Outpatient (CLI) | payer BC, SELFPAY ==
[2022-11-07 18:08] LABS: Basophils % 0.4 % (0.1-2.0); Eosinophils # 0.2 K/mm3 (0.0-0.4); Eosinophils % 3.5 % (0.1-12.0); Hematocrit 51.8 % (42.0-52.0); Hemoglobin 16.8 g/dL (14.1-18.0); Lymphocytes # 1.5 K/mm3 (0.7-4.5); Lymphocytes % 22.5 % (10-50); Mean Corpuscular HGB Conc 32.4 g/dL (31.8-35.4); Mean Corpuscular Hemoglobin 32.1 pg (27.0-31.2); Mean Corpuscular Volume 99.1 fl (80-94); Mean Platelet Volume 9.5 fl (7.4-10.4); Monocytes # 0.4 K/mm3 (0.1-1.0); Monocytes % 6.5 % (1.7-9.3); Neutrophils # 4.5 K/mm3 (1.8-7.8); Neutrophils % 67.1 % (37.0-80.0); Platelet Count 228 K/mm3 (142-424); Red Blood Count 5.22 M/mm3 (4.60-6.20); Red Cell Distribution Width 12.6 % (11.5-17.5); White Blood Count 6.6 K/mm3 (4.8-10.8)
[2022-11-07 18:14] LABS: Alanine Aminotransferase 62 U/L (12-78); Albumin Level 4.8 g/dl (3.5-5.0); Albumin/Globulin Ratio 1.6 (1.1-1.8); Alkaline Phosphatase 96 U/L (38-126); Anion Gap 19.6 mEq/L (5-15); Aspartate Amino Transferase 64 U/L (17-59); Bilirubin,Total 0.9 mg/dl (0.2-1.3); Blood Urea Nitrogen 20 mg/dl (9-20); Calcium 9.5 mg/dl (8.4-10.2); Carbon Dioxide 22 mmol/L (22.0-30.0); Chloride 104 mmol/L (98-107); Chol/HDL Ratio 3.3 (1-3.5); Cholesterol 166 mg/dl (140-200); Estimated Glomerular Filt Rate 62 ml/min (>60); GFR (African American) 75 ML/MIN (>60); Glucose 105 mg/dl (74-100); HDL Cholesterol 51 mg/dl (40-60); Potassium 4.6 mmoL/L (3.5-5.1); Sodium 141 mmol/L (136-145); Total Protein,Serum 7.8 g/dl (6.3-8.2); Triglycerides 161 mg/dl (30-150); VLDL Cholesterol 32 mg/dL (0-40)
[2022-11-07 18:26] LABS: Direct LDL Cholesterol 89.52 mg/dL (100-129)
[2022-11-07 18:32] LABS: 25-OH Vitamin D, Total 23.8 ng/mL (30-100); T4 (Thyroxine) 8.8 ug/dl (5.53-11.0)
[2022-11-07 18:45] LABS: Prostate Specific Ag Screen 0.9 ng/ml (0.0-4.0); Thyroid Stimulating Hormone 1.55 uIU/mL (0.465-4.68)
== END ==
PROVIDERS: PCP Nurse Practitioner Family; Visit Provider Nurse Practitioner Family
DX: I10 Essential (primary) hypertension (principal); E78.5 Hyperlipidemia, unspecified; E55.9 Vitamin D deficiency, unspecified; K21.9 Gastro-esophageal reflux disease without esophagitis; Z12.5 Encounter for screening for malignant neoplasm of prostate
CPT/HCPCS: 80053; 80061; 82306; 84436; 84443; 85025; G0103

== ENCOUNTER 2023-01-06 07:16 | Emergency (ER) | payer BC, SELFPAY ==
[2023-01-06 07:17] VITALS: BP 189/116; PULSE 81; RESP 17; TEMP 36.6; O2SAT 98; BMI 25.8
--- NOTE | 2023-01-06 07:24 | ECG_ITS ---
APPROVED REPORT Exam: Resting ECG HR:77 bpm ECG Measurements Heart Rate 77 AXES UT 171 P 67 QRSd 86 QRS -6 QT 361 T 20 QTc 393 Conclusion SINUS RHYTHM MODERATE ST DEPRESSION [0.05+ mV ST DEPRESSION] ABNORMAL ECG UNCONFIRMED REPORT Electronically signed by : Jose C Wiley MD 01/08/2023 17:24:56
[2023-01-06 07:30] VITALS: BP 160/99; PULSE 73; O2SAT 97
--- NOTE | 2023-01-06 07:49 | PC.NURSE ---
DR ALEJANDRO AT BEDSIDE
[2023-01-06 08:10] VITALS: BP 162/113
[2023-01-06 08:15] VITALS: BP 162/100; PULSE 70; RESP 17; TEMP 36.6; O2SAT 97
--- NOTE | 2023-01-06 08:21 | HMH.EDGENADL ---
Discharge Plan Disposition Patient Disposition: Home, Self-Care Prescriptions Prescriptions: New meclizine 25 mg tablet 25 mg PO TID PRN (Reason: dizziness) Qty: 20 0RF No Action diazepam 5 mg tablet 5 mg PO BID PRN (Reason: anxiety) Qty: 60 0RF metoprolol succinate 100 mg tablet extended release 24 hr 100 mg PO DAILY Qty: 90 3RF famotidine 40 mg tablet 40 mg PO DAILY Qty: 30 2RF cholecalciferol (vitamin D3) 1,250 mcg (50,000 unit) tablet 1,250 mcg PO WEEKLY Qty: 12 2RF ergocalciferol (vitamin D2) 50 mcg (2,000 unit) capsule 50 mcg PO DAILY Qty: 90 2RF atorvastatin 10 mg tablet See Rx Instructions .ROUTE .COMPLEX Qty: 90 0RF Dose Instruction: TAKE 1 TABLET BY MOUTH AT BEDTIME FOR CHOLESTEROL Rx Instructions: TAKE 1 TABLET BY MOUTH AT BEDTIME FOR CHOLESTEROL Referrals Follow up/Referrals: Lili Frank PA [Primary Care Provider] - See instructions Activity Restrictions/Add. Instructions Additional Instructions/Restrictions: You have a normal neurologic exam including a comprehensive posterior circulation exam suggesting this is not a central cause of your symptoms. Given the fact that your asymptomatic at rest and this only worsens with movement the working diagnosis is benign paroxysmal positional vertigo. Please follow-up with primary care doctor as needed return to the emergency department any worsening or different symptoms. Clinical Impressions Clinical Impression: Benign paroxysmal positional vertigo Discharge ED Provider: Jaron Ewing Adult HPI General Chief complaint: Weakness Stated complaint: dizzy Time Seen by Provider: 01/06/23 07:48 Mode of Arrival: Ambulatory Limitations: No Limitations Description of Symptoms (Recalled from ER Triage Doc. by RN): PT STATES HE WOKE UP DIZZY WORSE WITH LYING DOWN. History of Present Illness HPI narrative: Patient is a 57-year-old poor historian who presents today with nonspecific symptoms. He initially describes it as dizziness. However he states he is not having any rotary sensation or lightheadedness. He states it feels almost like a sinus infection about only when he moves his head. He describes it as at times being drunk. He is currently without symptoms denies any changes in coordination or vision states it only happens with movement. Denies any history of any coronary artery disease or cerebrovascular or peripheral vascular disease. Denies any headache fevers chills chest pain shortness of breath or any other symptoms. Related Data Previous Rx's Medication Instructions Recorded diazepam 5 mg tablet 5 mg PO BID PRN anxiety #60 tabs 11/07/22 famotidine 40 mg tablet 40 mg PO DAILY #30 tabs 11/07/22 metoprolol succinate 100 mg 100 mg PO DAILY Hypertension #90 11/07/22 tablet,extended release 24 hr tabs cholecalciferol (vitamin D3) 1,250 1,250 mcg PO WEEKLY #12 tabs 11/20/22 mcg (50,000 unit) tablet ergocalciferol (vitamin D2) 50 mcg 50 mcg PO DAILY #90 caps 11/20/22 (2,000 unit) capsule atorvastatin 10 mg tablet See Rx Instructions .Route 12/31/22 .COMPLEX #90 tabs meclizine 25 mg tablet 25 mg PO TID PRN dizziness #20 tabs 01/06/23 Allergies Allergy/AdvReac Type Severity Reaction Status Date / Time No Known Allergies Allergy Verified 11/07/22 14:15 [facility] Disclaimer: The information contained in this section may have been updated after the patient was seen, as this information can be updated by other users. Medical History Anxiety Dental abscess Gastroesophageal reflux disease Hyperlipidemia Hypertensive disorder Sciatica of left side Spasm of bowel Social History Smoking Status: Never smoker alcohol intake: never substance use type: denies use current occupational status: employed Travel in the last 8 weeks: None household members: famil
== END 2023-01-06 08:10 | disposition home or self-care (01) ==
PROVIDERS: Emergency Provider Emergency Medicine; PCP Physician Assistant
DX: H81.10 Benign paroxysmal vertigo, unspecified ear (principal); F41.9 Anxiety disorder, unspecified; K21.9 Gastro-esophageal reflux disease without esophagitis; E78.5 Hyperlipidemia, unspecified; I10 Essential (primary) hypertension
CPT/HCPCS: 93005; 99283

== ENCOUNTER → 2023-03-25 10:54 | Outpatient (CLI) | payer BC, SELFPAY ==
[2023-03-25 19:19] LABS: Amphetamine/Metha Screen,Urine Negative ng/ml (<1000); Benzodiazepines Screen,Urine Positive ng/ml (<200)
[2023-03-25 19:20] LABS: Barbiturates Screen,Urine Negative ng/ml (<200)
[2023-03-25 19:21] LABS: Cannabinoid Screen,Urine Negative ng/ml (<50); Cocaine Screen,Urine Negative ng/ml (<300)
[2023-03-25 19:22] LABS: Methadone Screen,Urine Negative ng/ml (<300); Opiate Screen,Urine Negative ng/ml (<300)
[2023-03-25 19:23] LABS: Phencyclidine Screen,Urine Negative ng/ml (<25)
== END ==
PROVIDERS: PCP Physician Assistant; Visit Provider Physician Assistant
DX: F41.9 Anxiety disorder, unspecified (principal); Z79.899 Other long term (current) drug therapy
CPT/HCPCS: 80305

== ENCOUNTER → 2023-04-09 08:10 | Outpatient (CLI) | payer BC, SELFPAY ==
[2023-04-09 18:54] LABS: Basophils % 0.6 % (0.1-2.0); Eosinophils # 0.2 K/mm3 (0.0-0.4); Eosinophils % 2.8 % (0.1-12.0); Hematocrit 55.3 % (42.0-52.0); Lymphocytes # 1.2 K/mm3 (0.7-4.5); Lymphocytes % 18.9 % (10-50); Mean Corpuscular HGB Conc 33.7 g/dL (31.8-35.4); Mean Corpuscular Hemoglobin 33.5 pg (27.0-31.2); Mean Corpuscular Volume 99.4 fl (80-94); Mean Platelet Volume 9.8 fl (7.4-10.4); Monocytes # 0.7 K/mm3 (0.1-1.0); Monocytes % 10.3 % (1.7-9.3); Neutrophils # 4.3 K/mm3 (1.8-7.8); Neutrophils % 67.5 % (37.0-80.0); Platelet Count 220 K/mm3 (142-424); Red Blood Count 5.56 M/mm3 (4.60-6.20); Red Cell Distribution Width 12.6 % (11.5-17.5); White Blood Count 6.3 K/mm3 (4.8-10.8)
[2023-04-09 18:58] LABS: Hemoglobin 18.7 g/dL (14.1-18.0)
[2023-04-09 19:02] LABS: Albumin/Globulin Ratio 1.4 (1.1-1.8); Alkaline Phosphatase 90 U/L (38-126); Bilirubin,Total 1.6 mg/dl (0.2-1.3); Blood Urea Nitrogen 49 mg/dl (9-20); Carbon Dioxide 23 mmol/L (22.0-30.0); Cholesterol 192 mg/dl (140-200); Estimated Glomerular Filt Rate 37 ml/min (>60); GFR (African American) 44 ML/MIN (>60); Globulin 3.5 g/dL (1.3-3.2); Potassium 4.8 mmoL/L (3.5-5.1); Sodium 135 mmol/L (136-145); Total Protein,Serum 8.5 g/dl (6.3-8.2); Triglycerides 142 mg/dl (30-150); VLDL Cholesterol 28 mg/dL (0-40)
[2023-04-09 19:05] LABS: Alanine Aminotransferase 62 U/L (12-78); Anion Gap 20.8 mEq/L (5-15); Aspartate Amino Transferase 66 U/L (17-59); Calcium 9.8 mg/dl (8.4-10.2); Chloride 96 mmol/L (98-107); Chol/HDL Ratio 3.8 (1-3.5); Glucose 99 mg/dl (74-100); HDL Cholesterol 50 mg/dl (40-60)
[2023-04-09 19:33] LABS: Thyroid Stimulating Hormone 4.76 uIU/mL (0.465-4.68)
== END ==
PROVIDERS: PCP Physician Assistant; Visit Provider Student in an Organized Health Care Education/Training Program
DX: R11.2 Nausea with vomiting, unspecified (principal); E55.9 Vitamin D deficiency, unspecified; Z68.26 Body mass index [BMI] 26.0-26.9, adult
CPT/HCPCS: 80053; 80061; 82306; 84443; 85025

== ENCOUNTER 2023-06-10 20:25 | Outpatient (CLI) | payer BC, SELFPAY ==
[2023-06-10 19:48] LABS: Basophils # 0.1 K/mm3 (0-0.2); Basophils % 1.6 % (0.1-2.0); Eosinophils # 0.2 K/mm3 (0.0-0.4); Eosinophils % 2.6 % (0.1-12.0); Hematocrit 51.7 % (42.0-52.0); Hemoglobin 17.3 g/dL (14.1-18.0); Lymphocytes # 1.1 K/mm3 (0.7-4.5); Lymphocytes % 15.1 % (10-50); Mean Corpuscular HGB Conc 33.5 g/dL (31.8-35.4); Mean Corpuscular Hemoglobin 33.3 pg (27.0-31.2); Mean Corpuscular Volume 99.4 fl (80-94); Mean Platelet Volume 11.4 fl (7.4-10.4); Monocytes # 0.6 K/mm3 (0.1-1.0); Monocytes % 7.7 % (1.7-9.3); Neutrophils # 5.5 K/mm3 (1.8-7.8); Neutrophils % 73.1 % (37.0-80.0); Platelet Count 218 K/mm3 (142-424); Red Cell Distribution Width 13.1 % (11.5-17.5); White Blood Count 7.6 K/mm3 (4.8-10.8)
[2023-06-10 20:37] LABS: Alanine Aminotransferase 57 U/L (12-78); Albumin/Globulin Ratio 1.6 (1.1-1.8); Alkaline Phosphatase 99 U/L (38-126); Anion Gap 17.4 mEq/L (5-15); Aspartate Amino Transferase 55 U/L (17-59); Bilirubin,Total 0.8 mg/dl (0.2-1.3); Blood Urea Nitrogen 16 mg/dl (9-20); Calcium 10.4 mg/dl (8.4-10.2); Carbon Dioxide 26 mmol/L (22.0-30.0); Chloride 104 mmol/L (98-107); Cholesterol 210 mg/dl (140-200); Estimated Glomerular Filt Rate 62 ml/min (>60); GFR (African American) 75 ML/MIN (>60); Globulin 3.2 g/dL (1.3-3.2); Glucose 100 mg/dl (74-100); HDL Cholesterol 42 mg/dl (40-60); Magnesium 2.3 mg/dl (1.6-2.3); Potassium 4.4 mmoL/L (3.5-5.1); Sodium 143 mmol/L (136-145); Total Protein,Serum 8.2 g/dl (6.3-8.2); Triglycerides 118 mg/dl (30-150); VLDL Cholesterol 24 mg/dL (0-40)
[2023-06-10 20:38] LABS: 25-OH Vitamin D, Total 19.1 ng/mL (30-100)
[2023-06-10 20:49] LABS: Direct LDL Cholesterol 131.12 mg/dL (100-129)
[2023-06-10 21:07] LABS: Thyroid Stimulating Hormone 4.07 uIU/mL (0.465-4.68)
[2023-06-11 00:49] LABS: Hemoglobin A1C 5.7 % (4.0-6.0)
== END 2023-06-10 23:59 ==
LOC: LAB.DROPOF 20:25
PROVIDERS: PCP Student in an Organized Health Care Education/Training Program; Visit Provider Student in an Organized Health Care Education/Training Program
DX: E78.5 Hyperlipidemia, unspecified (principal); I10 Essential (primary) hypertension; E55.9 Vitamin D deficiency, unspecified; Z79.899 Other long term (current) drug therapy
CPT/HCPCS: 80053; 80061; 82306; 83036; 83735; 84443; 85025

== ENCOUNTER 2023-06-12 | Emergency (ER) | payer SELFPAY ==
--- NOTE | 2023-06-12 23:59 | ECG_ITS ---
APPROVED REPORT Exam: Resting ECG HR:93 bpm ECG Measurements Heart Rate 93 AXES OR 161 P 71 QRSd 89 QRS 14 QT 349 T 61 QTc [address] DEVIATION AND MODERATE T-WAVE ABNORMALITY, CONSIDER LATERAL ISCHEMIA [-0.1+ mV T-WAVE IN I/aVL/V5/V6] ABNORMAL ECG UNCONFIRMED REPORT Electronically signed by : Jose C Wiley MD 06/13/2023 16:33:38
[2023-06-13] VITALS (9 sets, daily range): BP systolic 110–148; BP diastolic 78–97; PULSE 67–86; RESP 17–20; TEMP 36.8; O2SAT 92–97; BMI 26.4
--- NOTE | 2023-06-13 00:13 | XR_ITS ---
PROCEDURE INFORMATION: Exam: XR Chest Exam date and time: 06/13/2023 12:42 AM Age: 58 years old Clinical indication: Pain; Chest pressure; Additional info: Chest pain TECHNIQUE: Imaging protocol: Radiologic exam of the chest. Views: 1 view. COMPARISON: CR XR CHEST 2V 11/10/2019 6:25 PM FINDINGS: Lungs: Unremarkable. No consolidation. Pleural spaces: Unremarkable. No pleural effusion. No pneumothorax. Heart/Mediastinum: Unremarkable. No cardiomegaly. Bones/joints: Unremarkable. IMPRESSION: No acute findings.
[2023-06-13 00:25] LABS: Basophils # 0.1 K/mm3 (0-0.2); Eosinophils # 0.2 K/mm3 (0.0-0.4); Hematocrit 51.5 % (42.0-52.0); Hemoglobin 16.8 g/dL (14.1-18.0); Lymphocytes # 2.1 K/mm3 (0.7-4.5); Lymphocytes % 24.3 % (10-50); Mean Corpuscular HGB Conc 32.5 g/dL (31.8-35.4); Mean Corpuscular Hemoglobin 32.9 pg (27.0-31.2); Mean Corpuscular Volume 101.1 fl (80-94); Mean Platelet Volume 8.8 fl (7.4-10.4); Monocytes # 0.5 K/mm3 (0.1-1.0); Monocytes % 6.2 % (1.7-9.3); Neutrophils # 5.9 K/mm3 (1.8-7.8); Neutrophils % 66.6 % (37.0-80.0); Platelet Count 227 K/mm3 (142-424); Red Blood Count 5.09 M/mm3 (4.60-6.20); Red Cell Distribution Width 13.1 % (11.5-17.5); White Blood Count 8.8 K/mm3 (4.8-10.8)
--- NOTE | 2023-06-13 00:34 | PC.NURSE ---
Pt refused GI cocktail. Pt states he can not drink it because it it thick and numbs his mouth. Pt states he freaked out last time he had this. Pt educated on purposes of medication. Pt states his pain is now resolved.
[2023-06-13 00:38] LABS: Alanine Aminotransferase 67 U/L (12-78); Albumin Level 4.9 g/dl (3.5-5.0); Albumin/Globulin Ratio 1.5 (1.1-1.8); Alkaline Phosphatase 77 U/L (38-126); Anion Gap 10.2 mEq/L (5-15); Aspartate Amino Transferase 98 U/L (17-59); Bilirubin,Total 1.3 mg/dl (0.2-1.3); Blood Urea Nitrogen 23 mg/dl (9-20); Calcium 10.1 mg/dl (8.4-10.2); Carbon Dioxide 31 mmol/L (22.0-30.0); Chloride 99 mmol/L (98-107); Creatinine Clearance Estimated 72 mL/min (50-200); Estimated Glomerular Filt Rate 57 ml/min (>60); GFR (African American) 68 ML/MIN (>60); Globulin 3.3 g/dL (1.3-3.2); Glucose 123 mg/dl (74-100); Potassium 3.2 mmoL/L (3.5-5.1); Sodium 137 mmol/L (136-145); Total Protein,Serum 8.2 g/dl (6.3-8.2)
--- NOTE | 2023-06-13 00:38 | ED_ITS ---
Discharge Plan Disposition Patient Disposition: Home, Self-Care Condition: Good Prescriptions Prescriptions: No Action aspirin [Adult Aspirin Regimen] 81 mg tablet,delayed release (DR/EC) 81 mg PO DAILY amlodipine 5 mg tablet 5 mg PO DAILY Qty: 30 0RF hydrochlorothiazide 25 mg tablet 12.5 mg PO DAILY atorvastatin 40 mg tablet 40 mg PO DAILY Qty: 30 3RF metoprolol succinate 100 mg tablet extended release 24 hr 100 mg PO DAILY Qty: 90 3RF cholecalciferol (vitamin D3) 1,250 mcg (50,000 unit) tablet 1,250 mcg PO WEEKLY Qty: 12 2RF ergocalciferol (vitamin D2) 50 mcg (2,000 unit) capsule 50 mcg PO DAILY Qty: 90 2RF famotidine 40 mg tablet 40 mg PO DAILY Qty: 30 2RF diazepam 5 mg tablet 5 mg PO BID PRN (Reason: anxiety) Qty: 60 0RF meclizine 25 mg tablet 25 mg PO TID PRN (Reason: dizziness) Qty: 20 0RF Referrals Follow up/Referrals: Marly Becerra MD [Physician] - See instructions (chest pain improved after pepcid) Feliz Roman MD [Staff Physician] - See instructions (Chest pain, scheduling for echo/stress but came to ER with pain. Trop 0.03, ECG stable. Needs close follow up) Provider,Referral, [Referring] - See instructions Activity Restrictions/Add. Instructions Additional Instructions/Restrictions: You were evaluated in the ER for chest pain. Your workup is reassuring. You have been referred to Dr. Roman with cardiology, call his office first thing in the morning and discuss having your echo expedited since you were evaluated in the ER. You have also been referred to Dr. Becerra with GI to discuss reflux since I believe this likely is part of your chest pain. Make an appointment w ith primary care physician for reevaluation in 2 to 3 days. Return to the ER with any new, worsening, or otherwise concerning symptoms. Clinical Impressions Clinical Impression: Chest pain Discharge ED Provider: Lisa Gonsalez General Chief Complaint: Chest Pain Stated Complaint: CP Time Seen by Provider: 06/13/23 00:12 Mode of Arrival: Ambulatory Source of Information: Patient Limitations: No Limitations Description of Symptoms (Recalled from ER Triage Doc. by RN): Pt ambulatory to ED with c/o midsternal CP starting approx 1 hour ago. Pt reports the pain shot across his chest. Pain does not radiate, and pt states pain is better now. Pt took pepcid before arriving to ED. Pt reports being at [facility] saturday after having a shooting pain on the left side of his head. Pt states he was hypertensive in their ED and was started Norvasc and HCTZ. Pt states he was told at the medical center ED that his bp went so high that it made his brain swell. Pt has d/c home from ed. History of Present Illness HPI narrative: 58-year-old male presents to the ER with concerns of chest pain 1 hour ago. Patient states he had shooting pain across his mid chest. He states he did not have any shortness of breath or chest pressure. He states his pain is improving. He took Pepcid prior to arrival in the ER. Patient states he was evaluated at [facility] 5 days ago after having shooting pain in the left side of his neck and mild pain in the chest. Reportedly he was quite h ypertensive in the ER with blood pressures over 200. He takes metoprolol at baseline but also was prescribed Norvasc and HCTZ upon discharge from the [facility] ED. Patient states he was told by the ED that his blood pressure was so high his brain swelled but he was discharged from the ER without admission to the hospital. Patient states he is being scheduled with cardiology for echo and stress test after his evaluation on Saturday, he has not yet heard an appointment time for these evaluations. Patient states he did not have any dizziness or neck pains tonight. He does state he has not been eating the best recently and does have a history of having prior scope where he thought he maybe had a polyp in his esophagus. Review of prior records demonstrates prior diagnosis of GERD and atypical angina. Related Data Home Medications Medication Instructions Recorded Confirmed aspirin 81 mg tablet,delayed 81 mg PO DAILY 06/10/23 06/10/23 release (Adult Aspirin Regimen) hydrochlorothiazide 25 mg tablet 12.5 mg PO DAILY 06/12/23 06/12/23 Previous Rx's Medication Instructions Recorded metoprolol succinate 100 mg 100 mg PO DAILY Hypertension #90 11/07/22 tablet,extended release 24 hr tabs cholecalciferol (vitamin D3) 1,250 1,250 mcg PO WEEKLY #12 tabs 11/20/22 mcg (50,000 unit) tablet ergocalciferol (vitamin D2) 50 mcg 50 mcg PO DAILY #90 caps 11/20/22 (2,000 unit) capsule meclizine 25 mg tablet 25 mg PO TID PRN dizziness #20 tabs 01/06/23 famotidine 40 mg tablet 40 mg PO DAILY #30 tabs 03/14/23 diazepam 5 mg tablet 5 mg PO BID PRN anxiety #60 tabs 05/08/23 amlodipine 5 mg tablet 5 mg PO DAILY #30 tabs 06/10/23 atorvastatin 40 mg tablet 40 mg PO DAILY #30 tabs 06/12/23 Allergies Allergy/AdvReac Type Severity Reaction Status Date / Time No Known Allergies Allergy Verified 06/12/23 09:15 [facility] Disclaimer: The information contained in this section may have been updated after the patient was seen, as this information can be updated by other users. Medical History (Updated 06/13/23 @ 03:53 by Lisa Gonsalez MD) Abnormal ECG Anxiety Atypical angina Burning chest pain Dental abscess Family history of coronary artery disease Gastroesophageal reflux disease Hyperlipidemia Hypertensive disorder Sciatica of left side Spasm of bowel Surgical History No significant past surgical history Family History Other No significant family history Social History Smoking Status: Never smoker alcohol intake: never substance use type: denies use current occupational status: employed Travel in the last 8 weeks: None household members: family housing: house caffeine: No ROS Obtained: Yes All systems reviewed & no additional complaints except as documented Constitutional Constitutional: Denies chills, Denies fever(s), Denies headache(s) and Denies weakness Eyes Eyes: Denies change in vision ENT Ears, Nose, Mouth, and Throat: Denies dizziness, Denies headache(s), Denies nasal congestion and Denies sore throat Cardiovascular Cardiovascular: Reports chest pain, Denies dyspnea and Denies leg edema Respiratory Respiratory: Denies cough and Denies dyspnea Gastrointestinal Gastrointestingal: Denies constipation, diarrhea, nausea or vomiting Genitourinary Male Genitourinary: Denies difficulty urinating Musculoskeletal Musculoskeletal: Denies arthralgias, Denies myalgias, Denies numbness and Denies tingling Integumentary/Breasts Skin/Breast: Denies change in pigmentation Neurologic Neurologic: Denies dizziness, Denies headache(s), Denies numbness, Denies tingling and Denies weakness Physical Exam General General appearance: alert and in no apparent distress Head Head exam: atraumatic and normocephalic Eye Eye exam: Present PERRL and EOMI ENT ENT exam: Present mucous membranes moist Neck Neck exam: Present normal inspection and full ROM Chest Chest inspection: Present symmetric chest wall rise Respiratory Respiratory exam: Present normal lung sounds bilaterally; Absent respiratory distress, wheezes or stridor Cardiovascular Cardiovascular exam: Present regular rate and normal rhythm Abdominal Exam Abdominal exam: Present soft; Absent distention, tenderness, guarding or rebound Extremities Exam Extremities exam: Present full ROM Neurological Exam Neurological exam: Present alert and oriented X3; Absent motor sensory deficit Psychiatric Psychiatric exam: Present normal affect and normal mood Skin Skin exam: Present warm and dry HEART Score HEART Score HEART Score assessment performed?: Yes History (anamnesis): Moderately suspicious ECG: Non-specific disturbance Age: 45-65 years Risk factors: 1-2 risk factors Troponin: </= normal limit HEART Score: 4 Critical Care Critical Care Time Critical Care Time: No Medical Decision Making Moustapha Inquiry Pt receiving controlled substance: No Vital Signs Vital Signs: 06/13/23 00:05 06/13/23 00:30 06/13/23 01:00 Temperature 98.2 F Temperature Source Oral Pulse Rate 81 79 Pulse Rate [Left Radial] 86 Respiratory Rate 20 Blood Pressure 122/89 118/86 Blood Pressure [Right Arm] 148/97 H Blood Pressure Mean [Right Arm] 114 Blood Pressure Source [Right Arm] Automatic Cuff Blood Pressure Position [Right Arm] Supine 02 Sat by Pulse Oximetry 97 96 96 Oxygen Delivery Method Room Air 06/13/23 01:30 06/13/23 02:00 06/13/23 02:30 Temperature Temperature Source Pulse Rate 76 74 75 Pulse Rate [Left Radial] Respiratory Rate 17 Blood Pressure 110/83 120/88 114/82 Blood Pressure [Right Arm] Blood Pressure Mean [Right Arm] Blood Pressure Source [Right Arm] Blood Pressure Position [Right Arm] 02 Sat by Pulse Oximetry 94 L 96 94 L Oxygen Delivery Method 06/13/23 03:00 Temperature Temperature Source Pulse Rate 67 Pulse Rate [Left Radial] Respiratory Rate Blood Pressure 114/78 Blood Pressure [Right Arm] Blood Pressure Mean [Right Arm] Blood Pressure Source [Right Arm] Blood Pressure Position [Right Arm] 02 Sat by Pulse Oximetry 97 Oxygen Delivery Method Lab Data Labs: Lab Results 06/13/23 00:06: WBC 8.8, RBC 5.09, Hgb 16.8, Hct 51.5, MCV 101.1 H, MCH 32.9 H, MCHC 32.5, RDW 13.1, Plt Count 227, MPV 8.8, Neut % (Auto) 66.6, Lymph % (Auto) 24.3, [place] % (Auto) 6.2, Eos % (Auto) 2.0, Baso % (Auto) 1.0, Neut # (Auto) 5.9, Lymph # (Auto) 2.1, [place] # (Auto) 0.5, Eos # (Auto) 0.2, Baso # (Auto) 0.1, Sodium 137, Potassium 3.2 L D, Chloride 99, Carbon Dioxide 31 H, Anion Gap 10.2, BUN 23 H D, Creatinine 1.30 H, Estimated Creat Clear 72, Estimated GFR 57 L, Est GFR ( Amer) 68, Glucose 123 H, Calcium 10.1, Total Bilirubin 1.3, AST 98 H D, ALT 67, Alkaline Phosphatase 77, Troponin I 0.03, Total Protein 8.2, Albumin 4.9, Globulin 3.3 H, Albumin/Globulin Ratio 1.5 06/13/23 03:15: Troponin I 0.03 06/13/23 00:06 06/13/23 00:06 Response Orders (Tests/Meds): ED MEDICATIONS Discontinued Medications Generic Name Dose Route Start Last Admin Trade Name Freq PRN Reason Stop Dose Admin Aspirin 324 mg 06/13/23 01:15 06/13/23 01:42 Aspirin 81mg Chewable Tablet PO 06/13/23 01:16 324 mg ONCE ONE Administration Belladonna Alkaloids 60 ml 06/13/23 00:13 06/13/23 01:46 Belladonna Alkaloids 60 Ml Ml PO 06/13/23 00:14 Not Given ONCE ONE Lactated Ringer's 1,000 mls @ 999 mls/hr 06/13/23 01:12 06/13/23 01:43 Lactated Ringer's 1000 Ml Bag IV 06/13/23 02:12 999 mls/hr .Q1H1M ONE Administration Potassium Chloride 40 meq 06/13/23 01:12 06/13/23 01:41 Potassium Chloride 20meq Tab PO 06/13/23 01:13 40 meq ONCE ONE Administration ORDERS Category Date Time Status CXR --portable [XR chest portable] Stat Exams 06/13/23 00:13 Completed CBC w/Auto Diff [Complete Blood Count Auto Diff] Stat Lab 06/13/23 00:06 Completed CMP [Comprehensive Metabolic Panel] Stat Lab 06/13/23 00:06 Completed Trop I [Troponin I] Stat Lab 06/13/23 00:06 Completed Troponin I Q3H Lab 06/13/23 03:15 Completed Troponin I Q3H Lab 06/13/23 06:15 Ordered ECG initial Besson Routine Y 06/12/23 23:59 Completed ECG repeat same Besson Routine Y 06/13/23 01:15 Completed MDM Narrative Medical Decision Narrative: In summary, this 58year old male presents to the emergency department today with chest pain. On initial evaluation patient is hemodynamically stable, afebrile, asymptomatic, cardiopulmonary exam reassuring, remainder of exam benign. Differe ntial diagnosis includes but is not limited to ACS, esophageal spasm, patient has a history of reflux which could be contributing to his current symptoms and is a comorbidity of his current condition. Given patient's symptoms have dramatically improved since taking Pepcid earlier, I do have higher suspicion for reflux contributing to his symptoms but will still perform workup to rule out more morbid conditions. Based on these concerns, I ordered cardiac workup, I ordered GI cocktail but patient declined it, chest x-ray. ECG personally interpreted demonstrates sinus rhythm, normal axis, no interval abnormalities, patient does have slight depression in some of the precordial leads but there is no elevation or reciprocal changes. Patient is also asymptomatic at this time. Repeat EKG was ordered to assess for dynamic changes. On my personal interpretation it demonstrates []. Patient declined the GI cocktail that was ordered. Labs personally reviewed demonstrate CBC with no leukocytosis or anemia, CMP with mildly elevated BUN and creatinine, he is receiving 1 L of IV fluids, he does have mild hypokalemia and is receiving oral repletion. Initial troponin 0.03, Repeat troponin pending. XR personally interpreted demonstrates no acute intrathoracic abnormality, see radiology read for final interpretation. Patient was placed in the ED observation at 0113 with repeat troponin pending. He was placed in the ED observation for serial troponins in order to rule out evolving cardiac pathology and to preclude unnecessary admission. Patient was on the color television console monitor throughout his time in ED observation. He remained hemodynamically stable, regular rate and rhythm good oxygen saturations on room air between 95 to 97%, normotensive. Patient was reassessed frequently. He remained asymptomatic. His repeat troponin was stable at 0.03. This is reassuring against evolving cardiac pathology. He is appropriate for discharge at this time and comfortable with this plan. I did provide referral to cardiology and instructed the patient to call first thing in the morning and states they were able to get him in for an appointment for further evaluation and echo. Patient was given instructions on symptomatic management, follow up instructions, and return precautions for the e mergency department. Patient indicated understanding and was discharged in stable condition. I spent less than 30 minutes preparing for this discharge. Patient's ED observation time ended at 0353 after a total of 2 hours and 40 minutes in observation.
[2023-06-13 00:50] LABS: Troponin I 0.03 ng/ml (0.00-0.034)
--- NOTE | 2023-06-13 01:15 | ECG_ITS ---
APPROVED REPORT Exam: Resting ECG HR:81 bpm ECG Measurements Heart Rate 81 AXES CA 163 P 69 QRSd 90 QRS 17 QT 349 T 49 QTc 386 Conclusion SINUS RHYTHM NONSPECIFIC T-WAVE ABNORMALITY BORDERLINE ECG UNCONFIRMED REPORT Electronically signed by : Jose C Wiley MD 06/13/2023 16:33:20
[2023-06-13] MEDS: POTASSIUM CHLORIDE 20MEQ TAB 40 MEQ PO (01:41)
[2023-06-13] MEDS: ASPIRIN 81MG CHEWABLE TABLET 324 MG PO (01:42)
[2023-06-13] MEDS: LACTATED RINGERS 1000ML 1,000 ML 999 ML IV (01:43)
--- NOTE | 2023-06-13 02:17 | PC.NURSE ---
rounded on patient, no needs at this time, call light within reach
[2023-06-13 03:43] LABS: Troponin I 0.03 ng/ml (0.00-0.034)
== END 2023-06-13 04:11 | disposition home or self-care (01) ==
PROVIDERS: Emergency Provider Emergency Medicine; PCP Physician Assistant
DX: R07.9 Chest pain, unspecified (principal); M54.2 Cervicalgia; I20.9 Angina pectoris, unspecified; K21.9 Gastro-esophageal reflux disease without esophagitis; E78.5 Hyperlipidemia, unspecified; I10 Essential (primary) hypertension
CPT/HCPCS: 71045; 80053; 84484; 85025; 93005; 96360; 99285

== ENCOUNTER 2023-06-27 08:16 | Outpatient (CLI) | payer BC, SELFPAY ==
--- NOTE | 2023-06-27 08:18 | CA_ITS ---
APPROVED REPORT EXAM: Comprehensive 2D, Doppler, and color-flow Echocardiogram Artificial Glass Eye Maker: Jocelyne Sherman RT(R) Ht: 5 ft 10 in Wt: 183lbs BSA: 2.01 BP: 134/98 mmHg Indications: CP, abn EKG, HTN, hyperlipidemia. 2D Dimensions LVEF (Demarco's) 63.30 % M: 52 - 72 LV Volume 74.20 mL M: 62 - 150 LV Volume Index 36.9 mL/m2 M: 34 - 74 LA Volume 29.10 mL LA Volume Index 14.48 mL/m2 (M/F) 16-34 EF AP4 51.70 % EF AP2 70.9 % EF BP 63.3 % GL Strain -17.6 % M-Mode Dimensions RVDd 2.06 cm (0.9-2.6) LA Diam 3.30 cm (1.9-4.0) LVDd 5.09 cm (3.5-5.7) LVDs 3.95 cm (3.5-5.7) IVSd 0.57 cm (0.6-1.1) PWd 0.61 cm (0.6-1.1) EF (Teich) 44.90% FS 22.40% EDV (Teich) 123.20 mL TAPSE 1.79 (<1.7) ESV (Teich) 67.90 mL LV Diastology E Decel Time 193 (160-240 msec) E/A Ratio 1.4 Mitral Valve MV E Max Gigi. 93.0 (40-130 cm/s) MV A Velocity 66.0 (40-130 cm/s) E/A Ratio 1.41 MV PHT 57.0 ms Tricuspid Valve TR P. Velocity 247.00 cm/s RAP Estimate 10.00 mmHg RVSP 34.40 mmHg Left Ventricle The left ventricle is normal size. The left ventricular systolic function is normal. The left ventricular ejection fraction is within the normal range. There is increased LV wall thickness. There is normal LV segmental wall motion. The left ventricular diastolic function is normal. LVEF is 55%. Right Ventricle The right ventricle is normal size. The right ventricular systolic function is normal. Atria The left atrium size is normal. The right atrium size is normal. There is no Doppler evidence of interatrial shunt. Aortic Valve The aortic valve is mildly thickened. There is no aortic valvular stenosis. No aortic regurgitation is present. Mitral Valve The mitral valve is normal in structure. No evidence of mitral valve stenosis. There is no mitral valve regurgitation noted. Tricuspid Valve The tricuspid valve leaflets are thin and pliable. Trace tricuspid regurgitation. RVSP is normal. Pulmonic Valve The pulmonary valve is normal in structure. Trace pulmonic regurgitation. Great Vessels The aortic root is normal in size. The ascending aorta is not well-visualized. IVC is normal in size and collapses >50% with inspiration. Pericardium There is no pericardial effusion. Other Information Study Quality: Fair Conclusion Normal biventricular systolic function. No significant valvular stenosis or regurgitation. Electronically signed by : Betty Bay MD 06/27/2023 11:15:09
== END 2023-06-27 23:59 ==
PROVIDERS: PCP Physician Assistant; Visit Provider Nurse Practitioner Family
DX: R07.89 Other chest pain (principal); R94.31 Abnormal electrocardiogram [ECG] [EKG]; I10 Essential (primary) hypertension; E78.5 Hyperlipidemia, unspecified; K21.9 Gastro-esophageal reflux disease without esophagitis
CPT/HCPCS: 93270; 93306

== ENCOUNTER 2023-10-11 11:35 | Outpatient (CLI) | payer BC, SELFPAY ==
[2023-10-11 19:43] LABS: Alanine Aminotransferase 65 U/L (12-78); Albumin Level 4.7 g/dl (3.5-5.0); Albumin/Globulin Ratio 1.5 (1.1-1.8); Alkaline Phosphatase 85 U/L (38-126); Anion Gap 18.4 mEq/L (5-15); Aspartate Amino Transferase 56 U/L (17-59); Blood Urea Nitrogen 18 mg/dl (9-20); Calcium 10.2 mg/dl (8.4-10.2); Carbon Dioxide 20 mmol/L (22.0-30.0); Chloride 107 mmol/L (98-107); Chol/HDL Ratio 5.5 (1-3.5); Cholesterol 287 mg/dl (140-200); Estimated Glomerular Filt Rate 69 ml/min (>60); GFR (African American) 83 ML/MIN (>60); Globulin 3.2 g/dL (1.3-3.2); Glucose 88 mg/dl (74-100); HDL Cholesterol 52 mg/dl (40-60); Potassium 4.4 mmoL/L (3.5-5.1); Sodium 141 mmol/L (136-145); Total Protein,Serum 7.9 g/dl (6.3-8.2); Triglycerides 108 mg/dl (30-150); VLDL Cholesterol 22 mg/dL (0-40)
[2023-10-11 19:54] LABS: Direct LDL Cholesterol 202.28 mg/dL (100-129)
[2023-10-11 20:13] LABS: Thyroid Stimulating Hormone 1.97 uIU/mL (0.465-4.68)
== END 2023-10-11 23:59 | disposition home or self-care (01) ==
LOC: LAB.DROPOF 10-12 11:35
PROVIDERS: PCP Family Medicine; Visit Provider Family Medicine
DX: R07.9 Chest pain, unspecified (principal); I20.89 Other forms of angina pectoris; Z79.899 Other long term (current) drug therapy
CPT/HCPCS: 80053; 80061; 84443

== ENCOUNTER 2023-10-14 13:10 | Emergency (ER) | payer BC, SELFPAY ==
[2023-10-14 13:10] VITALS: BP 167/104; PULSE 64; RESP 20; TEMP 37; O2SAT 97; BMI 26.9
[2023-10-14 13:49] VITALS: BP 151/110; PULSE 64; O2SAT 96
[2023-10-14 13:56] LABS: Basophils % 0.5 % (0.1-2.0); Eosinophils # 0.1 K/mm3 (0.0-0.4); Eosinophils % 1.6 % (0.1-12.0); Hematocrit 46.9 % (42.0-52.0); Hemoglobin 15.5 g/dL (14.1-18.0); Lymphocytes # 1.4 K/mm3 (0.7-4.5); Lymphocytes % 21.5 % (10-50); Mean Corpuscular HGB Conc 33.1 g/dL (31.8-35.4); Mean Corpuscular Volume 99.9 fl (80-94); Mean Platelet Volume 8.8 fl (7.4-10.4); Monocytes # 0.3 K/mm3 (0.1-1.0); Monocytes % 5.3 % (1.7-9.3); Neutrophils # 4.6 K/mm3 (1.8-7.8); Neutrophils % 71.1 % (37.0-80.0); Platelet Count 218 K/mm3 (142-424); Red Blood Count 4.69 M/mm3 (4.60-6.20); Red Cell Distribution Width 12.9 % (11.5-17.5); White Blood Count 6.4 K/mm3 (4.8-10.8)
[2023-10-14 14:00] VITALS: BP 143/91; PULSE 62; O2SAT 97
--- NOTE | 2023-10-14 14:03 | ED_ITS ---
<Statement entered by Home Callahan MD - 10/21/23 09:25> I was consulted by the IAN, and we discussed the complexity of the problems being addressed. I approved the treatment and management plan for this patient's care in the emergency department, thus performing a substantive portion of the medical decision making. Home Callahan MD, ASHA, FACEP Discharge Plan Disposition Patient Disposition: Home, Self-Care Condition: Good Prescriptions Prescriptions: No Action aspirin [Adult Aspirin Regimen] 81 mg tablet,delayed release (DR/EC) 81 mg PO DAILY levocetirizine 5 mg tablet 5 mg PO DAILY Patient Comments: TAKE 1 TABLET BY MOUTH ONCE DAILY FOR 30 DAYS pantoprazole 20 mg tablet,delayed release (DR/EC) 20 mg PO DAILY buspirone 7.5 mg tablet 7.5 mg PO BID Qty: 60 1RF amlodipine 2.5 mg tablet 5 mg PO DAILY Patient Comments: TAKE 1 TABLET BY MOUTH ONCE DAILY FOR 15 DAYS metoprolol succinate 100 mg tablet extended release 24 hr 100 mg PO DAILY Qty: 90 3RF atorvastatin 10 mg tablet See Rx Instructions .ROUTE .COMPLEX Qty: 90 0RF Dose Instruction: TAKE 1 TABLET BY MOUTH AT BEDTIME FOR CHOLESTEROL Rx Instructions: TAKE 1 TABLET BY MOUTH AT BEDTIME FOR CHOLESTEROL hydroxyzine HCl 25 mg tablet 50 mg PO TID PRN (Reason: itching) Qty: 30 2RF diazepam 5 mg tablet 5 mg PO DAILY PRN (Reason: anxiety) Qty: 30 0RF Referrals Follow up/Referrals: Arianna Benson APRN [Nurse Practitioner] - See instructions Feliz Roman MD [Staff Physician] - See instructions Activity Restrictions/Add. Instructions Additional Instructions/Restrictions: Please keep a log of your blood pressure in the morning when you get up before you take your medicine, in the middle of the day and in the evening. Please take this log with you to your cardiology appointment. I have referred you to also the behavioral health for management of anxiety. Please follow-up with your PCP within 1 week. Turn to ER for any worsening signs or symptoms as needed. Clinical Impressions Clinical Impression: Hypertension, uncontrolled, Generalized anxiety disorder Discharge ED Provider: Home Callahan General Adult HPI General Chief complaint: Headache Stated complaint: High Blood Pressure Time Seen by Provider: 10/14/23 14:02 Mode of Arrival: EMS Source of Information: Patient Limitations: No Limitations Description of Symptoms (Recalled from ER Triage Doc. by RN): pt to ed c/o headache and blurry vision. pt states he has been trying to get his blood pressure stabilized with his pcp. History of Present Illness HPI narrative: Patient presents for evaluation of high blood pressure blurry vision. Patient also complained of a headache however that is resolved prior to arrival. Patient has been a longtime utilizer of Valium for more than 20 years. Apparently patient is being weaned off or discontinued and has been out of his Valium. Patient was placed on BuSpar and Vistaril for his anxiety symptoms. Patient states that this is not working. Patient states that he sometimes has blurry vision and it triggers his anxiety more. He denies chest pain fever chills hemoptysis hematochezia melena nausea vomit diarrhea. Patient has seen cardiology in the past however has not seen them recently. Related Data Home Medications Medication Instructions Recorded Confirmed aspirin 81 mg tablet,delayed 81 mg PO DAILY 06/10/23 10/11/23 release (Adult Aspirin Regimen) levocetirizine 5 mg tablet 5 mg PO DAILY 09/17/23 10/11/23 pantoprazole 20 mg tablet,delayed 20 mg PO DAILY 09/17/23 10/11/23 release amlodipine 2.5 mg tablet 5 mg PO DAILY 10/11/23 10/11/23 Previous Rx's Medication Instructions Recorded metoprolol succinate 100 mg 100 mg PO DAILY Hypertension #90 11/07/22 tablet,extended release 24 hr tabs atorvastatin 10 mg tablet See Rx Instructions .Route 06/26/23 .COMPLEX #90 tabs buspirone 7.5 mg tablet 7.5 mg PO BID #60 tabs 09/17/23 hydroxyzine HCl 25 mg tablet 50 mg (2 x 25 mg) PO TID PRN 10/03/23 itching #30 tabs diazepam 5 mg tablet 5 mg PO DAILY PRN anxiety #30 tabs 10/14/23 Allergies Allergy/AdvReac Type Severity Reaction Status Date / Time No Known Allergies Allergy Verified 10/11/23 11:10 [facility] Disclaimer: The information contained in this section may have been updated after the patient was seen, as this information can be updated by other users. Medical History Atypical angina Family history of coronary artery disease Burning chest pain Abnormal ECG Sciatica of left side Spasm of bowel Dental abscess Gastroesophageal reflux disease Anxiety Hyperlipidemia Hypertensive disorder Surgical History No significant past surgical history Family History Other No significant family history Social History Smoking Status: Never smoker alcohol intake: never substance use type: denies use current occupational status: employed Travel in the last 8 weeks: None household members: family housing: house caffeine: No ROS Obtained: Yes Systems reviewed as appropriate & no additional complaints except as documented Physical Exam General General appearance: alert, in no apparent distress and anxious Eye Eye exam: Present normal appearance, PERRL and EOMI; Absent conjunctival redness ENT ENT exam: Present normal exam, normal oropharynx and mucous membranes moist Neck Neck exam: Present normal inspection and other (No carotid bruits); Absent tenderness Chest Chest inspection: Present normal inspection and symmetric chest wall rise Respiratory Respiratory exam: Present normal lung sounds bilaterally; Absent respiratory distress Cardiovascular Cardiovascular exam: Present regular rate, normal rhythm, normal heart sounds, +S1 and +S2 Abdominal Exam Abdominal exam: Present soft and normal bowel sounds; Absent tenderness, guarding, rebound or rigidity Extremities Exam Extremities exam: Present normal inspection and full ROM; Absent edema Back Exam Back exam: Present normal inspection and full ROM Neurological Exam Neurological exam: Present alert, oriented X3 and CN II-XII intact Psychiatric Psychiatric exam: Present normal affect and anxious Skin Skin exam: Present warm, dry and normal color Medical Decision Making Medical Records Medical records reviewed: Yes I reviewed the patient's medical records. Moustapha Inquiry Pt receiving controlled substance: No Vital Signs: 10/14/23 13:10 10/14/23 13:49 10/14/23 14:00 Temperature 98.6 F Temperature Source Oral Pulse Rate 64 62 Pulse Rate [Left Radial] 64 Respiratory Rate 20 Blood Pressure 151/110 H 143/91 H Blood Pressure [Right Arm] 167/104 H Blood Pressure Mean 121 118 Blood Pressure Mean [Right Arm] 125 02 Sat by Pulse Oximetry 97 96 97 Oxygen Delivery Method Room Air Room Air Room Air Lab Data Lab results reviewed: Yes I reviewed the patient's lab results. Lab Results 10/14/23 13:50: WBC 6.4, RBC 4.69, Hgb 15.5, Hct 46.9, MCV 99.9 H, MCH 33.0 H, MCHC 33.1, RDW 12.9, Plt Count 218, MPV 8.8, Neut % (Auto) 71.1, Lymph % (Auto) 21.5, [place] % (Auto) 5.3, Eos % (Auto) 1.6, Baso % (Auto) 0.5, Neut # (Auto) 4.6, Lymph # (Auto) 1.4, [place] # (Auto) 0.3, Eos # (Auto) 0.1, Baso # (Auto) 0.0, Sodium 140, Potassium 4.1, Chloride 104, Carbon Dioxide 30, Anion Gap 10.1, BUN 14, Creatinine 1.10, Estimated Creat Clear 84, Estimated GFR 69, Est GFR ( Amer) 83, Glucose 102 H, Calcium 10.5 H, Troponin I < 0.01 10/14/23 13:50 10/14/23 13:50 Orders (Tests/Meds): ED MEDICATIONS Generic Name Dose Route Start Last Admin Trade Name Freq PRN Reason Stop Dose Admin Sodium Chloride 10 ml 10/14/23 13:42 Sodium Chloride 0.9% 10ml Flush Syringe IV 11/13/23 13:41 NEEDED PRN Maintain IV Site Discontinued Medications Generic Name Dose Route Start Last Admin Trade Name Freq PRN Reason Stop Dose Admin Diazepam 5 mg 10/14/23 14:40 10/14/23 14:43 Diazepam 5mg Tablet PO 10/14/23 14:41 5 mg ONCE ONE Administration ORDERS Category Date Time Status Basic Metabolic Panel Stat Lab 10/14/23 13:50 Completed Complete Blood Count Auto Diff Stat Lab 10/14/23 13:50 Completed Troponin I Q3H Lab 10/14/23 16:45 Ordered Troponin I Q3H Lab 10/14/23 19:45 Ordered Troponin I Stat Lab 10/14/23 13:50 Completed Medical Decision Narrative: In summary patient is a 58-year-old who presents to the emergency department for evaluation of blood pressure. Patient is hypertensive to 164 but 64 breathing 20 times a minute satting 97% room air upon arrival, and afebrile. Physical exam is unremarkable and nonfocal including no focal neurologic deficits, patient is very anxious and fidgety, patient has no vision deficits, patient has no nuchal rigidity or meningismus, patient has no chest pain on palpation breath sounds are clear and equal bilaterally and heart sounds are normal. Patient is currently asymptomatic for all of his constitutional symptoms but his blood pressure is elevated especially diastolically. Differential diagnosis includes uncontrolled hypertension, benzodiazepine withdrawal, medication induced hypertension (patient's been recently started on BuSpar and hydralazine) CVA, ACS etc. Initial workup will be conducted with hematologic labs twelve-lead EKG. Initial interventions include Valium continuous cardiac monitoring and pulse oximetry. Initial workup reviewed by me shows that his hematologic labs are nonactionable. Upon repeat evaluation patient had significant improvement in his anxiety and thus his constitutional symptoms as well. Given this patient is referred back to cardiology for further titration of his blood pressure, back to his PCP for ongoing management of his anxiety and Valium prescription and is referred to behavioral health for second opinion for anxiety management. Critical Care Critical Care Time Critical Care Time: No
--- NOTE | 2023-10-14 14:05 | ECG_ITS ---
APPROVED REPORT Exam: Resting ECG HR:63 bpm ECG Measurements Heart Rate 63 AXES MO 176 P 53 QRSd 87 QRS 4 QT 375 T 29 QTc 383 Conclusion SINUS RHYTHM WITH OCCASIONAL SUPRAVENTRICULAR PREMATURE COMPLEXES BORDERLINE ECG Electronically signed by : OSWALDO NULL, 10/15/2023 03:46:58
[2023-10-14 14:28] LABS: Chloride 104 mmol/L (98-107)
[2023-10-14 14:29] LABS: Potassium 4.1 mmoL/L (3.5-5.1); Sodium 140 mmol/L (136-145)
[2023-10-14 14:32] LABS: Anion Gap 10.1 mEq/L (5-15); Blood Urea Nitrogen 14 mg/dl (9-20); Calcium 10.5 mg/dl (8.4-10.2); Carbon Dioxide 30 mmol/L (22.0-30.0); Creatinine Clearance Estimated 84 mL/min (50-200); Estimated Glomerular Filt Rate 69 ml/min (>60); GFR (African American) 83 ML/MIN (>60); Glucose 102 mg/dl (74-100)
[2023-10-14] MEDS: diazePAM 5MG TABLET 5 MG PO (14:43)
[2023-10-14 14:45] LABS: Troponin I < 0.01 ng/ml (0.00-0.034)
[2023-10-14 14:52] VITALS: BP 140/89; PULSE 64; RESP 20; TEMP 37; O2SAT 97
== END 2023-10-14 14:55 | disposition home or self-care (01) ==
PROVIDERS: Emergency Provider Student in an Organized Health Care Education/Training Program; PCP Physician Assistant
DX: R51.9 Headache, unspecified (principal); I10 Essential (primary) hypertension; H53.8 Other visual disturbances; F41.1 Generalized anxiety disorder; K21.9 Gastro-esophageal reflux disease without esophagitis; E78.5 Hyperlipidemia, unspecified; I20.89 Other forms of angina pectoris
CPT/HCPCS: 80048; 84484; 85025; 93005; 99283

== ENCOUNTER 2023-10-17 13:37 | Outpatient (CLI) | payer BC, SELFPAY ==
[2023-10-25 14:35] LABS: Dopamine, Ur, 24hr 178 ug/24 hr (0-510); Dopamine, Urine 123 ug/L (Undefined); Epinephrine, U, 24hr 6 ug/24 hr (0-20); Epinephrine, Urine 4 ug/L (Undefined); Norepinephrine, Ur 23 ug/L (Undefined); Norepinephrine,U,24h 33 ug/24 hr (0-135)
== END 2023-10-17 23:59 | disposition home or self-care (01) ==
LOC: LAB.DROPOF 13:38
PROVIDERS: PCP Physician Assistant; Visit Provider Physician Assistant
DX: I10 Essential (primary) hypertension (principal); E78.5 Hyperlipidemia, unspecified; K21.9 Gastro-esophageal reflux disease without esophagitis; R94.31 Abnormal electrocardiogram [ECG] [EKG]
CPT/HCPCS: 82384

== ENCOUNTER 2023-10-29 14:37 | Outpatient (CLI) | payer BC, SELFPAY ==
--- NOTE | 2023-10-29 14:37 | CA_ITS ---
FINAL REPORT CLINICAL HISTORY: Hypertension, HLD, dizziness. COMPARISON: None FINDINGS: RIGHT CAROTID: CCA PSV -85.5 cm/sec ICA PSV -85.3 cm/sec ICA/CCA PSV ratio -1.06. Comments: No significant plaque disease is noted. LEFTCAROTID: CCA PSV -89. cm/sec ICA PSV -76. cm/sec ICA/CCA PSV ratio -1.11. Comments: No significant plaque disease is noted. Antegrade flow is seen within the vertebral arteries. IMPRESSION: Carotid stenosis classified less than 50% Reviewed, Interpreted and Dictated by George High MD Transcribed by Carol Terrazas Authenticated and . [facility]
== END 2023-10-29 23:59 | disposition home or self-care (01) ==
PROVIDERS: PCP Physician Assistant; Visit Provider Family Medicine
DX: R07.9 Chest pain, unspecified (principal); I20.89 Other forms of angina pectoris; F17.200 Nicotine dependence, unspecified, uncomplicated
CPT/HCPCS: 93880

== ENCOUNTER 2023-11-03 14:21 | Emergency (ER) | payer BC, SELFPAY ==
[2023-11-03] VITALS (11 sets, daily range): BP systolic 97–130; BP diastolic 64–96; PULSE 57–82; RESP 13–19; TEMP 36.7–36.8; O2SAT 95–100; BMI 26.4
--- NOTE | 2023-11-03 14:33 | ED_ITS ---
<Statement entered by Judith Fox DO - 11/03/23 23:13> I was consulted by the IAN, and we discussed the complexity of the problems being addressed. I approved the treatment and management plan for this patient's care in the emergency department, thus performing a substantive portion of the medical decision making. Judith Fox DO Discharge Plan Disposition Patient Disposition: Home, Self-Care Condition: Good Prescriptions Prescriptions: New amoxicillin-pot clavulanate 875-125 mg tablet 1 tab PO BID Qty: 20 0RF No Action aspirin [Adult Aspirin Regimen] 81 mg tablet,delayed release (DR/EC) 81 mg PO DAILY levocetirizine 5 mg tablet 5 mg PO DAILY Patient Comments: TAKE 1 TABLET BY MOUTH ONCE DAILY FOR 30 DAYS metoprolol succinate 100 mg tablet extended release 24 hr 100 mg PO DAILY Qty: 90 3RF buspirone 10 mg tablet 10 mg PO BID 90 Days Qty: 180 0RF mirtazapine [Remeron] 15 mg tablet 15 mg PO HS Qty: 30 2RF amlodipine-benazepril 5-10 mg capsule 1 cap PO DAILY Qty: 30 2RF diazepam 5 mg tablet 5 mg PO DAILY PRN (Reason: anxiety) Qty: 30 0RF atorvastatin 40 mg tablet 40 mg PO HS Qty: 30 2RF pantoprazole 20 mg tablet,delayed release (DR/EC) 20 mg PO DAILY Qty: 30 2RF amoxicillin 875 mg tablet 875 mg PO BID Qty: 20 0RF Referrals Follow up/Referrals: Lili Frank PA [Primary Care Provider] - See instructions Arianna Benson APRN [Nurse Practitioner] - See instructions Activity Restrictions/Add. Instructions Additional Instructions/Restrictions: I have once again referred you to mental health. I highly encourage you to make a phone call tomorrow to set up an appointment. Please follow-up with your PCP as scheduled for refill of your chronic medications. He has significant orthodontic disease with evidence of chronic and possibly acute abscesses. Discharged on antibiotics. You need to contact your dentist or establish care with one for addressing these concerns. 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 Patient was seen recently for similar complaints and it was ultimately felt to be the result of discontinuation of his benzodiazepine as his symptoms improved after reinitiation of benzodiazepines. However patient tells me that he has now been out of his benzodiazepine for 3 days and has significantly been taking his benzodiazepines. Patient also states that he did not follow-up with behavioral health for evaluation for better control of his anxiety. Patient does report that he has some tooth pain that makes his symptoms worse but denies vision changes taste or smell changes or paresthesias. He is very anxious on arrival but seems to lack insight into his anxiety. Related Data Home Medications Medication Instructions Recorded Confirmed aspirin 81 mg tablet,delayed 81 mg PO DAILY 06/10/23 10/17/23 release (Adult Aspirin Regimen) levocetirizine 5 mg tablet 5 mg PO DAILY 09/17/23 10/17/23 Previous Rx's Medication Instructions Recorded metoprolol succinate 100 mg 100 mg PO DAILY Hypertension #90 11/07/22 tablet,extended release 24 hr tabs amlodipine 5 mg-benazepril 10 mg 1 cap PO DAILY #30 caps 10/14/23 capsule buspirone 10 mg tablet 10 mg PO BID 90 days #180 tabs 10/14/23 diazepam 5 mg tablet 5 mg PO DAILY PRN anxiety #30 tabs 10/14/23 mirtazapine 15 mg tablet (Remeron) 15 mg PO HS #30 tabs 10/14/23 atorvastatin 40 mg tablet 40 mg PO HS #30 tabs 10/15/23 pantoprazole 20 mg tablet,delayed 20 mg PO DAILY #30 tabs 10/21/23 release amoxicillin 875 mg tablet 875 mg PO BID #20 tabs 10/30/23 amoxicillin 875 mg-potassium 1 tab PO BID #20 tabs 11/03/23 clavulanate 125 mg tablet Allergies Allergy/AdvReac Type Severity Reaction Status Date / Time No Known Allergies Allergy Verified 10/17/23 13:59 [facility] Disclaimer: The information contained in this section may have been updated after the patient was seen, as this information can be updated by other users. Medical History Atypical angina Family history of coronary artery disease Burning chest pain Abnormal ECG Sciatica of left side Spasm of bowel Dental abscess Gastroesophageal reflux disease Anxiety probable panic attacks Hyperlipidemia Hypertensive disorder BP improved today Surgical History No significant past surgical history Family History Other No significant family history Social History Smoking Status: Never smoker alcohol intake: never substance use type: denies use current occupational status: employed Travel in the last 8 weeks: None household members: family housing: house caffeine: No ROS Obtained: Yes Systems reviewed as appropriate & no additional complaints except as documented Physical Exam General General appearance: alert, in no apparent distress and anxious (Very anxious) Head Head exam: atraumatic and normal inspection Eye Eye exam: Present normal appearance, PERRL and EOMI; Absent nystagmus ENT ENT exam: Present mucous membranes moist and other (Patient has extensive dental caries and multiple different areas where it is painful to palpate his teeth. No obvious swelling or abscesses currently to palpation) Neck Neck exam: Present normal inspection, full ROM and trachea midline; Absent tenderness or lymphadenopathy Chest Chest inspection: Present normal inspection and symmetric chest wall rise Respiratory Respiratory exam: Present normal lung sounds bilaterally; Absent accessory muscle use Cardiovascular Cardiovascular exam: Present regular rate, normal rhythm and normal heart sounds Extremities Exam Extremities exam: Present normal inspection and full ROM Back Exam Back exam: Present normal inspection and full ROM; Absent tenderness Neurological Exam Neurological exam: Present alert, oriented X3 and CN II-XII intact Psychiatric Psychiatric exam: Present agitated and anxious Skin Skin exam: Present warm, dry and normal color Medical Decision Making Medical Records Medical records reviewed: Yes I reviewed the patient's medical records. Moustapha Inquiry Pt receiving controlled substance: No Vital Signs: 11/03/23 14:23 11/03/23 14:37 11/03/23 15:00 Temperature 98.2 F Temperature Source Oral Pulse Rate 78 67 Pulse Rate [Left Radial] 82 Respiratory Rate 19 Blood Pressure 130/96 H 115/86 Blood Pressure [Right Arm] 130/96 H Blood Pressure Mean [Right Arm] 107 02 Sat by Pulse Oximetry 97 98 95 Oxygen Delivery Method Room Air Room Air 11/03/23 15:15 11/03/23 15:30 11/03/23 16:00 Temperature Temperature Source Pulse Rate 67 65 65 Pulse Rate [Left Radial] Respiratory Rate Blood Pressure 107/79 L 103/80 L 102/75 L Blood Pressure [Right Arm] Blood Pressure Mean [Right Arm] 02 Sat by Pulse Oximetry 96 96 97 Oxygen Delivery Method Room Air Room Air 11/03/23 16:30 11/03/23 17:30 11/03/23 18:00 Temperature Temperature Source Pulse Rate 59 L 58 L 59 L Pulse Rate [Left Radial] Respiratory Rate Blood Pressure 97/64 L 119/89 111/84 Blood Pressure [Right Arm] Blood Pressure Mean [Right Arm] 02 Sat by Pulse Oximetry 96 99 97 Oxygen Delivery Method Room Air Room Air Room Air 11/03/23 18:30 11/03/23 19:09 Temperature 98.0 F Temperature Source Pulse Rate 57 L 63 Pulse Rate [Left Radial] Respiratory Rate 13 Blood Pressure 126/87 123/95 H Blood Pressure [Right Arm] Blood Pressure Mean [Right Arm] 02 Sat by Pulse Oximetry 100 Oxygen Delivery Method Room Air Lab Data Lab results reviewed: Yes I reviewed the patient's lab results. Lab Results 11/03/23 14:48: WBC 6.2, RBC 4.73, Hgb 15.7, Hct 48.0, MCV 101.6 H, MCH 33.3 H, MCHC 32.8, RDW 13.1, Plt Count 228, MPV 9.8, Neut % (Auto) 61.5, Lymph % (Auto) 27.1, [place] % (Auto) 6.4, Eos % (Auto) 4.2, Baso % (Auto) 0.8, Neut # (Auto) 3.8, Lymph # (Auto) 1.7, [place] # (Auto) 0.4, Eos # (Auto) 0.3, Baso # (Auto) 0.1, PT 10.8, INR 1.00, Sodium 143, Potassium 4.0, Chloride 105, Carbon Dioxide 27, Anion Gap 15.0, BUN 21 H, Creatinine 1.20, Estimated Creat Clear 78, Estimated GFR 62, Est GFR ( Amer) 75, Glucose 105 H, Calcium 9.9, Magnesium 2.2, Procalcitonin 0.052, TSH 1.55 11/03/23 14:48 11/03/23 14:48 Orders (Tests/Meds): ED MEDICATIONS Discontinued Medications Generic Name Dose Route Start Last Admin Trade Name Freq PRN Reason Stop Dose Admin Acetaminophen 1,000 mg 11/03/23 14:48 11/03/23 15:11 Acetaminophen 1,000mg/100ml Vial IV 11/03/23 14:49 1,000 mg ONCE ONE Administration Amoxicillin/Clavulanate Potassium 1 each 11/03/23 18:59 11/03/23 19:04 Amoxicillin/Clavulanate Potassium 875/125mg Tablet PO 11/03/23 19:00 1 each ONCE ONE Administration Iopamidol 100 ml 11/03/23 17:11 11/03/23 17:13 Iopamidol-370 (76%);100ml Bottle IV 11/03/23 17:12 100 ml ONCE ONE Administration Lorazepam 1 mg 11/03/23 14:48 11/03/23 15:11 Lorazepam 2mg/Ml Vial IV 11/03/23 14:49 1 mg ONCE ONE Administration Lorazepam 1 mg 11/03/23 18:52 11/03/23 19:02 Lorazepam 2mg/Ml Vial IV 11/03/23 18:53 1 mg ONCE ONE Administration Meclizine HCl 25 mg 11/03/23 14:48 11/03/23 15:12 Meclizine 25mg Tablet PO 11/03/23 14:49 25 mg ONCE ONE Administration Sodium Chloride 10 ml 11/03/23 14:48 Sodium Chloride 0.9% 10ml Vial IV 12/03/23 14:47 NEEDED PRN to Dilute Lorazepam inj Sodium Chloride 50 ml 11/03/23 17:11 11/03/23 17:12 0.9 % Sodium Chloride 50 Ml Vial IV 11/03/23 17:12 50 ml ONCE ONE Administration Sodium Chloride 10 ml 11/03/23 17:11 11/03/23 17:13 Sodium Chloride 0.9% 10ml Syr (Rad Only) IV 12/03/23 17:10 10 ml NEEDED PRN Administration Maintain IV Site ORDERS Category Date Time Status CT angio head Stat Cat Scan 11/03/23 14:[address] angio neck Stat Cat Scan 11/03/23 14:[address] head/brain wo con Stat Cat Scan 11/03/23 14:47 Completed BMP [Basic Metabolic Panel] Stat Lab 11/03/23 14:48 Completed CBC w/Auto Diff [Complete Blood Count Auto Diff] Stat Lab 11/03/23 14:48 Completed INR [Prothrombin Time INR] Stat Lab 11/03/23 14:48 Completed Magnesium Stat Lab 11/03/23 14:48 Completed Procalcitonin Stat Lab 11/03/23 14:48 Completed TSH [Thyroid Stimulating Hormone] Stat Lab 11/03/23 14:48 Completed Medical Decision Narrative: In summary patient is a 8-year-old male who presents to the emergency department for evaluation of blurry vision and headache. Patient is dynamically stable upon arrival, afebrile. Physical exam is remarkable for significant dental caries with odontalgia but a Glascow coma score 15 no carotid bruits and no focal neurologic deficits.. Differential diagnosis includes stroke versus space- occupying lesion versus vascular abnormality versus benzodiazepine withdrawal versus anxiety etc. Initial workup will be conducted with hematologic labs CT scan and CTA of the head and neck. Initial interventions include Toradol Tylenol Decadron and Ativan. Initial workup reviewed by me shows his hematologic labs are nonactionable and my pulm interpretation of his imaging shows significant dental caries with potential abscesses or the sequela of same but no other acute abnormalities. Upon repeat evaluation patient had complete resolution of his vision changes and his anxiety was much better. Given this patient is again referred to behavioral health for evaluation and also referred back to his dentist for evaluation of his dental caries with a prescription for Augmentin with first dose given here. Critical Care Critical Care Time Critical Care Time: No
--- NOTE | 2023-11-03 14:47 | CT_ITS ---
PROCEDURE INFORMATION: Exam: CTA Head With Contrast, Arteriography Exam date and time: 11/03/2023 4:51 PM Age: 58 years old Clinical indication: Dizziness and giddiness and visual disturbance; Additional info: Dizziness, blurred vision TECHNIQUE: Imaging protocol: Computed tomographic angiography of the head with contrast. Exam focused on the arteries. 3D rendering (Not supervised by radiologist): MIP and/or 3D reconstructed images were created by the technologist. Radiation optimization: All CT scans at this facility use at least one of these dose optimization techniques: automated exposure control; mA and/or kV adjustment per patient size (includes targeted exams where dose is matched to clinical indication); or iterative reconstruction. Contrast material: ISOVUE 370; Contrast volume: 100 ml; Contrast route: INTRAVENOUS (IV); COMPARISON: CT HEAD/BRAIN WO CON 11/03/2023 4:47 PM FINDINGS: ANTERIOR CIRCULATION: Right internal carotid artery: Intracranial segment is patent with no significant stenosis. No aneurysm. Right middle cerebral artery: No occlusion or significant stenosis. No aneurysm. Right anterior cerebral artery: No occlusion or significant stenosis. No aneurysm. Left internal carotid artery: Intracranial segment is patent with no significant stenosis. No aneurysm. Left middle cerebral artery: No occlusion or significant stenosis. No aneurysm. Left anterior cerebral artery: No occlusion or significant stenosis. No aneurysm. POSTERIOR CIRCULATION: Right vertebral artery: No occlusion or significant stenosis. No aneurysm. Left vertebral artery: Hypoplastic left vertebral artery V4 segment from the level of the posterior inferior cerebellar artery to the basilar confluence, normal congenital variant anatomy for a nondominant vertebral artery Basilar artery: No aneurysm. No occlusion or significant stenosis. Right posterior cerebral artery: Hypoplastic P1 segment of the right posterior cerebral artery compensated by the right posterior communicating artery. No occlusion or significant stenosis distally. No dissection or aneurysm. Left posterior cerebral artery: Hypoplastic P1 segment of the left posterior cerebral artery compensated by the left posterior communicating artery. No occlusion or significant stenosis distally. No dissection or aneurysm.. No abrupt vessel cut-off. No aneurysm or significant stenosis. Brain: No abnormally enhancing brain lesion, mass effect, or midline shift. Cerebral ventricles: No hydrocephalus. Bones/joints: No acute calvarial or skull base fracture. Soft tissues: Unremarkable. IMPRESSION: No evidence of significant stenosis, occlusion, or aneurysm in the intracranial cerebral arteries. PROCEDURE INFORMATION: Exam: CT Maxillofacial With Contrast Exam date and time: 11/03/2023 4:51 PM Age: 58 years old Clinical indication: Dizziness and giddiness and visual disturbance; Additional info: Dizziness, blurred vision TECHNIQUE: Imaging protocol: Computed tomography of the face with contrast. COMPARISON: CT HEAD/BRAIN WO CON 11/03/2023 4:47 PM FINDINGS: Orbital cavities: Globes and orbital structures are unremarkable. Paranasal sinuses: No air-fluid levels. Also see Dental finding. Dental: Numerous missing or broken teeth and dental caries, as well as multiple periapical lucencies concerning for odontogenic abscesses. Left maxillary molar periapical abscess with erosion of the maxillary sinus floor and diffuse mucosal thickening in the maxillary sinus consistent with chronic odontogenic sinusitis. Bones: No evidence of acute fracture. Bilateral temporomandibular joints are congruent. Pterygoid plates and lamina papyracea are intact. Chronic fracture deformities noted in the lamina papyracea Soft tissues: Unremarkable. IMPRESSION: 1. No acute findings. 2. Numerous missing or broken teeth and dental caries, as well as multiple periapical lucencies concerning for odontogenic abscesses. 3. Left maxillary molar periapical abscess with erosion of the maxillary sinus floor and diffuse mucosal thickening in the maxillary sinus consistent with chronic odontogenic sinusitis.
--- NOTE | 2023-11-03 14:47 | CT_ITS ---
PROCEDURE INFORMATION: Exam: CT Head Without Contrast Exam date and time: 11/03/2023 4:47 PM Age: 58 years old Clinical indication: Dizziness and visual disturbance; Additional info: Dizziness, blurred vision TECHNIQUE: Imaging protocol: Computed tomography of the head without contrast. Radiation optimization: All CT scans at this facility use at least one of these dose optimization techniques: automated exposure control; mA and/or kV adjustment per patient size (includes targeted exams where dose is matched to clinical indication); or iterative reconstruction. COMPARISON: US CA CAROTID DUPLEX BI 10/29/2023 2:45 PM FINDINGS: Brain: No acute intracranial hemorrhage. No intra- or extra-axial fluid collection. No mass effect or midline shift. No evidence of acute/subacute vascular territory infarct. Cerebral ventricles: No hydrocephalus. Paranasal sinuses: Moderate mucosal thickening in the left maxillary sinus. No air-fluid levels. Mastoid air cells: Visualized mastoid air cells are clear. Bones: No evidence of acute calvarial or skull base fracture. Soft tissues: Unremarkable. IMPRESSION: No evidence of acute intracranial hemorrhage or acute/subacute vascular territory infarct.
--- NOTE | 2023-11-03 14:47 | CT_ITS ---
PROCEDURE INFORMATION: Exam: CTA Neck With Contrast Exam date and time: 11/03/2023 4:51 PM Age: 58 years old Clinical indication: Dizziness and giddiness and visual disturbance; Additional info: Dizziness, blurred vision TECHNIQUE: Imaging protocol: Computed tomographic angiography of the neck with contrast. Exam focused on the cervical segments of the vasculature. 3D rendering (Not supervised by radiologist): MIP and/or 3D reconstructed images were created by the technologist. Radiation optimization: All CT scans at this facility use at least one of these dose optimization techniques: automated exposure control; mA and/or kV adjustment per patient size (includes targeted exams where dose is matched to clinical indication); or iterative reconstruction. Contrast material: ISOVUE 370; Contrast volume: 100 ml; Contrast route: INTRAVENOUS (IV); COMPARISON: CT ANGIO HEAD 11/03/2023 4:51 PM FINDINGS: Right common carotid artery: No stenosis. No dissection or occlusion. Right internal carotid artery: No stenosis of the extracranial segment. No dissection or occlusion. Right external carotid artery: No occlusion or stenosis of the origin. Left common carotid artery: Atherosclerotic plaque at the left carotid bulb and proximal internal carotid artery without significant stenosis. No dissection or aneurysm. Left internal carotid artery: No stenosis of the extra-cranial segment. No dissection or occlusion. Left external carotid artery: No occlusion or stenosis of the origin. Right vertebral artery: Dominant right vertebral artery, normal variant. No evidence of dissection, occlusion or significant stenosis. Left vertebral artery: No stenosis. No dissection or occlusion. Soft tissues: Unremarkable. Bones/joints: Multi-level degenerative changes in the cervical spine result in varying degrees of spinal canal stenosis and neuroforaminal narrowing. No evidence of acute osseous abnormality. IMPRESSION: 1. No evidence of significant stenosis, occlusion, dissection or aneurysm in the extracranial cerebral arteries. 2. Multi-level degenerative changes in the cervical spine result in varying degrees of spinal canal stenosis and neuroforaminal narrowing. REFERENCES: NASCET CRITERIA. The degree of stenosis in the cervical segment of the internal carotid artery is based on NASCET criteria. Normal is no stenosis. Mild is less than 50% stenosis. Moderate is 50-69% stenosis. Severe is 70% to 99% stenosis. Total occlusion is no detectable patent lumen.
[2023-11-03 15:09] LABS: Blood Urea Nitrogen 21 mg/dl (9-20); Calcium 9.9 mg/dl (8.4-10.2); Carbon Dioxide 27 mmol/L (22.0-30.0); Creatinine Clearance Estimated 78 mL/min (50-200); Estimated Glomerular Filt Rate 62 ml/min (>60); GFR (African American) 75 ML/MIN (>60); Glucose 105 mg/dl (74-100); Magnesium 2.2 mg/dl (1.6-2.3); Sodium 143 mmol/L (136-145)
[2023-11-03] MEDS: LORazepam 2MG/ML VIAL 1 MG IV ×2 (15:11→19:02)
[2023-11-03] MEDS: ACETAMINOPHEN 1,000MG/100ML VIAL 1000 MG IV (15:11)
[2023-11-03] MEDS: MECLIZINE 25MG TABLET 25 MG PO (15:12)
[2023-11-03 15:17] LABS: Basophils # 0.1 K/mm3 (0-0.2); Basophils % 0.8 % (0.1-2.0); Eosinophils # 0.3 K/mm3 (0.0-0.4); Eosinophils % 4.2 % (0.1-12.0); Hemoglobin 15.7 g/dL (14.1-18.0); Lymphocytes # 1.7 K/mm3 (0.7-4.5); Lymphocytes % 27.1 % (10-50); Mean Corpuscular HGB Conc 32.8 g/dL (31.8-35.4); Mean Corpuscular Hemoglobin 33.3 pg (27.0-31.2); Mean Corpuscular Volume 101.6 fl (80-94); Mean Platelet Volume 9.8 fl (7.4-10.4); Monocytes # 0.4 K/mm3 (0.1-1.0); Monocytes % 6.4 % (1.7-9.3); Neutrophils # 3.8 K/mm3 (1.8-7.8); Neutrophils % 61.5 % (37.0-80.0); Platelet Count 228 K/mm3 (142-424); Red Blood Count 4.73 M/mm3 (4.60-6.20); Red Cell Distribution Width 13.1 % (11.5-17.5); White Blood Count 6.2 K/mm3 (4.8-10.8)
[2023-11-03 15:23] LABS: Prothrombin Time 10.8 seconds (10.1-12.5)
[2023-11-03 15:26] LABS: Procalcitonin 0.052 ng/mL (0.0-2.0)
[2023-11-03 15:32] LABS: Chloride 105 mmol/L (98-107)
[2023-11-03 15:40] LABS: Thyroid Stimulating Hormone 1.55 uIU/mL (0.465-4.68)
[2023-11-03] MEDS: 0.9 % SODIUM CHLORIDE 50 ML VIAL IV (17:12)
[2023-11-03] MEDS: IOPAMIDOL-370 (76%);100ML BOTTLE 100 ML IV (17:13)
[2023-11-03] MEDS: SODIUM CHLORIDE 0.9% 10ML SYR (RAD ONLY) 10 ML IV (17:13)
[2023-11-03] MEDS: AMOXICILLIN/CLAVULANATE POTASSIUM 875/125MG TABLET 1 EACH PO (19:04)
== END 2023-11-03 19:10 | disposition home or self-care (01) ==
PROVIDERS: Physician Assistant; Emergency Provider Emergency Medicine; PCP Physician Assistant
DX: R51.9 Headache, unspecified (principal); F41.1 Generalized anxiety disorder; K04.7 Periapical abscess without sinus; K02.9 Dental caries, unspecified; F13.930 Sedative, hypnotic or anxiolytic use, unspecified with withdrawal, uncomplicated; R42 Dizziness and giddiness; I10 Essential (primary) hypertension; K21.9 Gastro-esophageal reflux disease without esophagitis; E78.5 Hyperlipidemia, unspecified
CPT/HCPCS: 70450; 70496; 70498; 80048; 83735; 84145; 84443; 85025; 85610; 96374; 96375; 96376; 99285; J0131; J2060; Q9967

== ENCOUNTER 2023-11-08 20:38 | Emergency (ER) | payer BC, SELFPAY ==
[2023-11-08 20:39] VITALS: BP 154/101; PULSE 81; RESP 22; TEMP 36.8; O2SAT 98; BMI 25.8
[2023-11-08 20:45] VITALS: BP 154/101; PULSE 79; RESP 20; O2SAT 99
--- NOTE | 2023-11-08 20:54 | ED_ITS ---
Discharge Plan Disposition Patient Disposition: Home, Self-Care Prescriptions Prescriptions: No Action aspirin [Adult Aspirin Regimen] 81 mg tablet,delayed release (DR/EC) 81 mg PO DAILY levocetirizine 5 mg tablet 5 mg PO DAILY Patient Comments: TAKE 1 TABLET BY MOUTH ONCE DAILY FOR 30 DAYS pantoprazole 20 mg tablet,delayed release (DR/EC) 20 mg PO DAILY Qty: 90 3RF desvenlafaxine succinate [Pristiq] 50 mg tablet extended release 24 hr 50 mg PO DAILY Qty: 30 2RF diazepam 5 mg tablet 5 mg PO DAILY PRN (Reason: only for acute and severe anxiety) 30 Days Qty: 25 0RF buspirone 15 mg tablet 15 mg PO BID Qty: 60 2RF metoprolol succinate 100 mg tablet extended release 24 hr 100 mg PO DAILY Qty: 90 3RF mirtazapine [Remeron] 15 mg tablet 15 mg PO HS Qty: 30 2RF amlodipine-benazepril 5-10 mg capsule 1 cap PO DAILY Qty: 30 2RF atorvastatin 40 mg tablet 40 mg PO HS Qty: 30 2RF amoxicillin-pot clavulanate 875-125 mg tablet 1 tab PO BID Qty: 20 0RF Referrals Follow up/Referrals: Lili Frank PA [Primary Care Provider] - See instructions Activity Restrictions/Add. Instructions Additional Instructions/Restrictions: Talk to your family provider regarding SSRI versus SNRI prescription to treat anxiety. Call your family doctor to establish care for this visit to the emergency department and schedule follow-up within 48 hours to ensure improvement. Clinical Impressions Clinical Impression: Encounter for medical assessment Discharge ED Provider: Gene Moreira General Adult HPI General Stated complaint: possible allergic reaction to medication Time Seen by Provider: 11/08/23 20:40 History of Present Illness HPI narrative: Please note that above description of symptoms, in this electronic medical record under categorization of recalled from ER triage doctor by RN are reflective of an initial nursing assessment, however, is not reflective of my full history and physical exam that was personally taken and clarified. Consequentially, this preceding description of symptoms, which may include the patient's categorized chief complaint in the EMR, do not reflect my personal clinical impression, and the ultimate description of history of present illness and patient stated complaints should be deferred to this section of the note. Unless stated otherwise or congruent with this section of the note, additional signs, symptoms, or incongruence should be interpreted as inaccurate with my clinical impression. Related Data Home Medications Medication Instructions Recorded Confirmed aspirin 81 mg tablet,delayed 81 mg PO DAILY 06/10/23 11/05/23 release (Adult Aspirin Regimen) levocetirizine 5 mg tablet 5 mg PO DAILY 09/17/23 11/05/23 Previous Rx's Medication Instructions Recorded metoprolol succinate 100 mg 100 mg PO DAILY Hypertension #90 11/07/22 tablet,extended release 24 hr tabs amlodipine 5 mg-benazepril 10 mg 1 cap PO DAILY #30 caps 10/14/23 capsule mirtazapine 15 mg tablet (Remeron) 15 mg PO HS #30 tabs 10/14/23 atorvastatin 40 mg tablet 40 mg PO HS #30 tabs 10/15/23 amoxicillin 875 mg-potassium 1 tab PO BID #20 tabs 11/03/23 clavulanate 125 mg tablet buspirone 15 mg tablet 15 mg PO BID #60 tabs 11/05/23 desvenlafaxine succinate 50 mg 50 mg PO DAILY #30 tabs 11/05/23 tablet,extended release 24 hr (Pristiq) diazepam 5 mg tablet 5 mg PO DAILY PRN only for acute 11/05/23 and severe anxiety 30 days #25 tabs pantoprazole 20 mg tablet,delayed 20 mg PO DAILY #90 tabs 11/05/23 release Allergies Allergy/AdvReac Type Severity Reaction Status Date / Time No Known Allergies Allergy Verified 11/05/23 10:30 [facility] Disclaimer: The information contained in this section may have been updated after the patient was seen, as this information can be updated by other users. Medical History Atypical angina Family history of coronary artery disease Burning chest pain Abnormal ECG Sciatica of left side Spasm of bowel Dental abscess Gastroesophageal reflux disease Anxiety probable panic attacks Hyperlipidemia Hypertensive disorder BP improved today Surgical History No significant past surgical history Family History Other No significant family history Social History Smoking Status: Never smoker alcohol intake: never substance use type: denies use current occupational status: employed Travel in the last 8 weeks: None household members: family housing: house caffeine: No ROS Obtained: Yes All systems reviewed & no additional complaints except as documented Physical Exam General General appearance: alert and anxious (Incredibly anxious) Head Head exam: atraumatic and normocephalic Eye Eye exam: Present normal appearance, PERRL and EOMI ENT ENT exam: Present mucous membranes moist Neck Neck exam: Present normal inspection, full ROM and trachea midline Respiratory Respiratory exam: Present normal lung sounds bilaterally; Absent respiratory distress, wheezes, stridor, accessory muscle use or prolonged expiratory phase Cardiovascular Cardiovascular exam: Present normal rhythm Abdominal Exam Abdominal exam: Present soft; Absent distention, tenderness, guarding, rebound or rigidity Extremities Exam Extremities exam: Absent edema Neurological Exam Neurological exam: Present alert, oriented X3, CN II-XII intact and normal gait; Absent motor sensory deficit Skin Skin exam: Present warm and dry; Absent diaphoresis or erythema Medical Decision Making Medical Records Medical records reviewed: Yes I reviewed the patient's medical records. Moustapha Inquiry Pt receiving controlled substance: No Moustapha was queried for this patient: No Medical Decision Narrative: 58-year-old male history of severe anxiety, panic presenting with concern for medication reaction. Patient states that he was given BuSpar 3 weeks prior. States that he thinks he is having a reaction today. Reaction symptoms include subjective numbness on the medial aspect of his right ankle. No other symptoms including shortness of breath, cough, nausea, vomiting, diarrhea, rash, tongue or throat swelling, difficulty breathing or swallowing, or any other concerns. History was obtained via conversation with patient. On arrival, patient hemodynamically stable, alert, oriented x4, appropriate, GCS 15, moving all extremities spontaneously, pupils equal and reactive to light. Full physical exam performed and significant for incredibly anxious appearing male who is in no acute distress. He is hypertensive, nontachycardic. Saturating 100% on room air. No rash. Bowel sounds normal, abdomen soft, nontender, nondistended. Patient neurologically intact including cranial nerve, cerebellar, motor exam. He does have subjective sensation decreased in his L4 region on his right lower extremity. Lungs are clear to auscultation anterior and posterior bilaterally. No evidence of stridor, no evidence of angioedema. Differential includes anxiety, among others. Because patient well-appearing, no primary or secondary signs of anaphylaxis, deemed appropriate for outpatient management. Extensive conversation had with patient regarding need to follow-up with his family doctor and probable need for SSRI. He voiced his understanding. Because patient at baseline without signs or symptoms of clinical decompensation, deemed appropriate for discharge. Results were relayed to patient who voiced understanding and were agreeable to outpatient management and follow up. I discussed my clinical impression with patient and answered all questions. At this time, the evidence for any other entities in the differential is insufficient to warrant any further testing or ED observation. This was explained as well. Advisory was given that persistent or worsening symptoms require further evaluation. I confirmed the understanding of this discussion. He[employer] disclaimer Much of this encounter note is an electronic noteman spoken language to printed text. Electronic noteman of the spoken language may permit errors. Although I have reviewed the note, some errors may still exist. Critical Care Critical Care Time Critical Care Time: No
[2023-11-08 21:01] VITALS: BP 126/88; PULSE 76; RESP 18; O2SAT 95
[2023-11-08 21:13] VITALS: BP 136/94; PULSE 65; RESP 22; TEMP 36.6; O2SAT 99
== END 2023-11-08 21:14 | disposition home or self-care (01) ==
PROVIDERS: Emergency Provider Emergency Medicine; PCP Physician Assistant
DX: F41.0 Panic disorder [episodic paroxysmal anxiety] (principal)
CPT/HCPCS: 99282

== ENCOUNTER 2023-12-01 20:57 | Emergency (ER) | payer BC, SELFPAY ==
[2023-12-01 20:58] VITALS: BP 119/72; PULSE 75; RESP 18; TEMP 36.9; O2SAT 99; BMI 26.6
--- NOTE | 2023-12-01 21:43 | HMH.EDGENADL ---
Discharge Plan Disposition Patient Disposition: Home, Self-Care Condition: Good Prescriptions Prescriptions: New meclizine 25 mg tablet 25 mg PO QID PRN (Reason: dizziness) Qty: 14 0RF No Action aspirin [Adult Aspirin Regimen] 81 mg tablet,delayed release (DR/EC) 81 mg PO DAILY levocetirizine 5 mg tablet 5 mg PO DAILY Patient Comments: TAKE 1 TABLET BY MOUTH ONCE DAILY FOR 30 DAYS pantoprazole 20 mg tablet,delayed release (DR/EC) 20 mg PO DAILY Qty: 90 3RF desvenlafaxine succinate [Pristiq] 50 mg tablet extended release 24 hr 50 mg PO DAILY Qty: 30 2RF diazepam 5 mg tablet 5 mg PO DAILY PRN (Reason: only for acute and severe anxiety) 30 Days Qty: 25 0RF buspirone 15 mg tablet 15 mg PO BID Qty: 60 2RF metoprolol succinate 100 mg tablet extended release 24 hr 100 mg PO DAILY Qty: 90 3RF mirtazapine [Remeron] 15 mg tablet 15 mg PO HS Qty: 30 2RF amlodipine-benazepril 5-10 mg capsule 1 cap PO DAILY Qty: 30 2RF atorvastatin 40 mg tablet 40 mg PO HS Qty: 30 2RF amoxicillin-pot clavulanate 875-125 mg tablet 1 tab PO BID Qty: 20 0RF Referrals Follow up/Referrals: Lili Frank PA [Primary Care Provider] - See instructions Activity Restrictions/Add. Instructions Additional Instructions/Restrictions: I have sent a prescription in for meclizine to your pharmacy. Please follow-up with your PCP for continuing your Valium prescription. Return to ER for any worsening signs or symptoms as needed. Clinical Impressions Clinical Impression: Dizziness, Anxiety Instructions Patient Instructions: DI for Anxiety -- Adult, Dizziness, Nonvertigo Discharge ED Provider: Jaron Ewing General Adult HPI <NOAM Manuel - Last Filed: 12/01/23 23:26> General Chief complaint: Dizziness Stated complaint: dizzy, want Blood pressure checked Time Seen by Provider: 12/01/23 21:42 Mode of Arrival: Ambulatory Source of Information: Patient Limitations: No Limitations Description of Symptoms (Recalled from ER Triage Doc. by RN): 58 M presents from home with c/o dizziness after having dental work on Saturday. Patient states he has history of vertigo and got meclizine a few months ago while at another ER, but is out of this medication now. Patient has NAD at current time. Saturday the symptoms became worse. History of Present Illness HPI narrative: Patient presents for evaluation of dizziness . Patient states that he has had intermittent dizziness since . Patient had full upper dental extraction on Saturday. He reports has been intermittent since then but denies any provoking positions or movements although turning his head seems to cause him to have more nausea. He any mouth pain fever chills hemoptysis hematochezia melena vomiting or diarrhea. Related Data Home Medications Medication Instructions Recorded Confirmed aspirin 81 mg tablet,delayed 81 mg PO DAILY 06/10/23 11/05/23 release (Adult Aspirin Regimen) levocetirizine 5 mg tablet 5 mg PO DAILY 09/17/23 11/05/23 Previous Rx's Medication Instructions Recorded metoprolol succinate 100 mg 100 mg PO DAILY Hypertension #90 11/07/22 tablet,extended release 24 hr tabs amlodipine 5 mg-benazepril 10 mg 1 cap PO DAILY #30 caps 10/14/23 capsule mirtazapine 15 mg tablet (Remeron) 15 mg PO HS #30 tabs 10/14/23 atorvastatin 40 mg tablet 40 mg PO HS #30 tabs 10/15/23 amoxicillin 875 mg-potassium 1 tab PO BID #20 tabs 11/03/23 clavulanate 125 mg tablet buspirone 15 mg tablet 15 mg PO BID #60 tabs 11/05/23 desvenlafaxine succinate 50 mg 50 mg PO DAILY #30 tabs 11/05/23 tablet,extended release 24 hr (Pristiq) diazepam 5 mg tablet 5 mg PO DAILY PRN only for acute 11/05/23 and severe anxiety 30 days #25 tabs pantoprazole 20 mg tablet,delayed 20 mg PO DAILY #90 tabs 11/05/23 release meclizine 25 mg tablet 25 mg PO QID PRN dizziness #14 tabs 12/01/23 Allergies Allergy/AdvReac Type Severity Reaction Status Date / Time No Known Allergies Allergy Verified 11/05/23 10:30 [facility] <NOAM Manuel - Last Filed: 12/01/23 23:26> [facility] Disclaimer: The information contained in this section may have been updated after the patient was seen, as this information can be updated by other users. Medical History Atypical angina Family history of coronary artery disease Burning chest pain Abnormal ECG Sciatica of left side Spasm of bowel Dental abscess Gastroesophageal reflux disease Anxiety probable panic attacks Hyperlipidemia Hypertensive disorder BP improved today Surgical History No significant past surgical history Family History Other No significant family history Social History Smoking Status: Current every day smoker tobacco type: smokeless tobacco alcohol intake: never substance use type: denies use current occupational status: employed Travel in the last 8 weeks: None household members: family housing: house caffeine: No <NOAM Manuel - Last Filed: 12/01/23 23:26> ROS Obtained: Yes Systems reviewed as appropriate & no additional complaints except as documented Physical Exam <NOAM Manuel - Last Filed: 12/01/23 23:26> General General appearance: alert and in no apparent distress Head Head exam: atraumatic and normal inspection Eye Eye exam: Present normal appearance and EOMI; Absent nystagmus ENT ENT exam: Present normal exam, normal oropharynx, mucous membranes moist, TM's normal bilaterally and other (Patient has had a full upper extraction and wounds appear to be healing appropriately without evidence of infection swelling redness or purulence.) Neck Neck exam: Present normal inspection, full ROM and trachea midline; Absent tenderness Chest Chest inspection: Present normal inspection and symmetric chest wall rise Respiratory Respiratory exam: Present normal lung sounds bilaterally; Absent accessory muscle use Cardiovascular Cardiovascular exam: Present regular rate, normal rhythm and normal heart sounds Neurological Exam Neurological exam: Present alert, oriented X3, CN II-XII intact and normal gait; Absent motor sensory deficit Psychiatric Psychiatric exam: Present normal affect and anxious Medical Decision Making <NOAM Manuel - Last Filed: 12/01/23 23:26> Medical Records Medical records reviewed: Yes I reviewed the patient's medical records. Moustapha Inquiry Pt receiving controlled substance: No Vital Signs: 12/01/23 20:58 12/01/23 23:36 Temperature 98.5 F 98.2 F Temperature Source Oral Oral Pulse Rate 67 Pulse Rate [Left] 75 Respiratory Rate 18 18 Blood Pressure 117/73 Blood Pressure [Right Arm] 119/72 Blood Pressure Mean [Right Arm] 87 Blood Pressure Source Automatic Cuff Blood Pressure Source [Right Arm] Automatic Cuff Blood Pressure Position Sitting Blood Pressure Position [Right Arm] Sitting 02 Sat by Pulse Oximetry 99 Oxygen Delivery Method Room Air Room Air Lab Data Lab results reviewed: Yes I reviewed the patient's lab results. Orders (Tests/Meds): ED MEDICATIONS Discontinued Medications Generic Name Dose Route Start Last Admin Trade Name Jona PRN Reason Stop Dose Admin Diazepam 5 mg 12/01/23 21:50 12/01/23 22:05 Diazepam 5mg Tablet PO 12/01/23 21:51 5 mg ONCE ONE Administration Meclizine HCl 25 mg 12/01/23 21:50 12/01/23 22:04 Meclizine 25mg Tablet PO 12/01/23 21:51 25 mg ONCE ONE Administration Medical Decision Narrative: In summary patient is a 49-year-old male who presents to the emergency department for evaluation of dizziness. Patient is hemodynamically stable upon arrival, afebrile. Physical exam is unremarkable and nonfocal including [place] Coma Score 15, no evidence of systemic infection, no dizziness currently at the time of my exam however patient is very anxious at baseline. I am unable to provoke nystagmus.. Differential diagnosis includes vestibular disorder versus BPPV versus anxiety etc. Initial workup was considered however patient is no focal neurologic deficits and has intermittent dizziness with turning his head. Initial interventions include meclizine Valium. Upon reassessment patient has had complete resolution of his symptoms after initial intervention. Given this patient is appropriate for discharge and will be discharged with a prescription for meclizine and he can continue his home prescription for Valium. <Jaron Ewing MD - Last Filed: 12/02/23 00:10> Vital Signs: 12/01/23 20:58 12/01/23 23:36 Temperature 98.5 F 98.2 F Temperature Source Oral Oral Pulse Rate 67 Pulse Rate [Left] 75 Respiratory Rate 18 18 Blood Pressure 117/73 Blood Pressure [Right Arm] 119/72 Blood Pressure Mean [Right Arm] 87 Blood Pressure Source Automatic Cuff Blood Pressure Source [Right Arm] Automatic Cuff Blood Pressure Position Sitting Blood Pressure Position [Right Arm] Sitting 02 Sat by Pulse Oximetry 99 Oxygen Delivery Method Room Air Room Air Orders (Tests/Meds): ED MEDICATIONS Discontinued Medications Generic Name Dose Route Start Last Admin Trade Name Jona PRN Reason Stop Dose Admin Diazepam 5 mg 12/01/23 21:50 12/01/23 22:05 Diazepam 5mg Tablet PO 12/01/23 21:51 5 mg ONCE ONE Administration Meclizine HCl 25 mg 12/01/23 21:50 12/01/23 22:04 Meclizine 25mg Tablet PO 12/01/23 21:51 25 mg ONCE ONE Administration Medical Decision Narrative: In summary patient is a 49-year-old male who presents to the emergency department for evaluation of dizziness. Patient is hemodynamically stable upon arrival, afebrile. Physical exam is unremarkable and nonfocal including [place] Coma Score 15, no evidence of systemic infection, no dizziness currently at the time of my exam however patient is very anxious at baseline. I am unable to provoke nystagmus.. Differential diagnosis includes vestibular disorder versus BPPV versus anxiety etc. Initial workup was considered however patient is no focal neurologic deficits and has intermittent dizziness with turning his head. Initial interventions include meclizine Valium. Upon reassessment patient has had complete resolution of his symptoms after initial intervention. Given this patient is appropriate for discharge and will be discharged with a prescription for meclizine and he can continue his home prescription for Valium. I was consulted by the IAN, and we discussed the complexity of the problems being addressed. I approved the treatment and management plan for this patient?s care in the Emergency Department, thus performing a substantive portion of the medical decision making. Jaron Ewing MD Critical Care <NOAM Manuel - Last Filed: 12/01/23 23:26> Critical Care Time Critical Care Time: No
[2023-12-01] MEDS: MECLIZINE 25MG TABLET 25 MG PO (22:04)
[2023-12-01] MEDS: diazePAM 5MG TABLET 5 MG PO (22:05)
[2023-12-01 23:36] VITALS: BP 117/73; PULSE 67; RESP 18; TEMP 36.8; O2SAT 98
== END 2023-12-01 23:36 | disposition home or self-care (01) ==
PROVIDERS: Emergency Provider Emergency Medicine; PCP Physician Assistant
DX: R42 Dizziness and giddiness (principal); F41.9 Anxiety disorder, unspecified; F17.290 Nicotine dependence, other tobacco product, uncomplicated; K21.9 Gastro-esophageal reflux disease without esophagitis; I10 Essential (primary) hypertension; E78.5 Hyperlipidemia, unspecified
CPT/HCPCS: 99283

== ENCOUNTER 2024-08-26 20:38 | Emergency (ER) | payer BC, SELFPAY ==
--- NOTE | 2024-08-26 20:55 | ED_ITS ---
Discharge Plan Disposition Patient Disposition: Home, Self-Care Prescriptions Prescriptions: No Action levocetirizine 5 mg tablet 5 mg PO DAILY Patient Comments: TAKE 1 TABLET BY MOUTH ONCE DAILY FOR 30 DAYS amlodipine 5 mg tablet 5 mg PO DAILY Qty: 90 0RF aspirin [Adult Aspirin Regimen] 81 mg tablet,delayed release (DR/EC) 81 mg PO DAILY Qty: 90 0RF atorvastatin 40 mg tablet 40 mg PO HS Qty: 30 2RF buspirone 15 mg tablet 15 mg PO BID Qty: 60 2RF desvenlafaxine succinate [Pristiq] 50 mg tablet extended release 24 hr 50 mg PO DAILY Qty: 30 2RF metoprolol succinate 100 mg tablet extended release 24 hr 100 mg PO DAILY Qty: 90 3RF mirtazapine [Remeron] 15 mg tablet 15 mg PO HS Qty: 30 2RF pantoprazole 20 mg tablet,delayed release (DR/EC) 20 mg PO DAILY Qty: 90 3RF cefdinir 300 mg capsule 300 mg PO Q12H 10 Days Qty: 20 0RF diazepam 5 mg tablet 5 mg PO DAILY PRN (Reason: only for acute and severe anxiety) 30 Days Qty: 25 0RF Referrals Follow up/Referrals: Lili Frank PA [Primary Care Provider] - See instructions Activity Restrictions/Add. Instructions Additional Instructions/Restrictions: No emergent or acute abnormalities were found on the CT scans of your head and the blood vessels of your head and neck nor on your blood test. As discussed I recommend you closely follow-up with a neurologist on a you have follow-up with our neurologist in October but I recommend that you call around to other healthcare systems to see if you can be seen sooner. Clinical Impressions Clinical Impression: Brain fog Instructions Patient Instructions: DI for Altered Mental Status Print Language Print Language: [place] Citizen Discharge ED Provider: [facility] Adult HPI <NOAM Manuel - Last Filed: 08/26/24 21:56> General Chief complaint: Altered Mental Status Stated complaint: eye are strained and brain fog Time Seen by Provider: 08/26/24 20:55 History of Present Illness HPI narrative: Patient presents for evaluation of straining vision and brain fog. Patient states that he has had daily for approximately 6 months of brain fog that he describes as located around his mid face. He cannot be more specific but specifically denies pain pressure or dizziness headache nausea vomiting anxiety. He has had several attempts at trying to address the problem without success. He does have an appointment with neurology in September. He has had no new or worsening symptoms but came to the ER tonight out of frustration as not having an answer. He denies any focal neurologic deficits shortness of breath fever chills hemoptysis hematochezia melena hematemesis. Patient did in the last 6 months have an upper mouth extraction but has had no side effects from that Related Data Home Medications ?Medication ?Instructions ?Recorded ?Confirmed levocetirizine 5 mg tablet 5 mg PO DAILY 09/17/23 12/19/23 Previous Rx's ?Medication ?Instructions ?Recorded amlodipine 5 mg tablet 5 mg PO DAILY #90 tabs 12/19/23 aspirin 81 mg tablet,delayed 81 mg PO DAILY #90 tabs 12/19/23 release (Adult Aspirin Regimen) atorvastatin 40 mg tablet 40 mg PO HS #30 tabs 12/19/23 buspirone 15 mg tablet 15 mg PO BID #60 tabs 12/19/23 desvenlafaxine succinate 50 mg 50 mg PO DAILY #30 tabs 12/19/23 tablet,extended release 24 hr (Pristiq) metoprolol succinate 100 mg 100 mg PO DAILY Hypertension #90 12/19/23 tablet,extended release 24 hr tabs mirtazapine 15 mg tablet (Remeron) 15 mg PO HS #30 tabs 12/19/23 pantoprazole 20 mg tablet,delayed 20 mg PO DAILY #90 tabs 12/19/23 release cefdinir 300 mg capsule 300 mg PO Q12H 10 days #20 caps 01/10/24 diazepam 5 mg tablet 5 mg PO DAILY PRN only for acute 01/24/24 and severe anxiety 30 days #25 tabs Allergies Allergy/AdvReac Type Severity Reaction Status Date / Time No Known Allergies Allergy Verified 12/19/23 10:18 [facility] <NOAM Manuel - Last Filed: 08/26/24 21:56> [facility] Disclaimer: The information contained in this section may have been updated after the patient was seen, as this information can be updated by other users. Medical History Atypical angina Family history of coronary artery disease Burning chest pain Abnormal ECG Sciatica of left side Spasm of bowel Dental abscess Gastroesophageal reflux disease Anxiety probable panic attacks Hyperlipidemia Hypertensive disorder BP improved today Surgical History No significant past surgical history Family History Other No significant family history Social History Smoking Status: Never smoker alcohol intake: never substance use type: denies use current occupational status: employed Travel in the last 8 weeks: None household members: family housing: house caffeine: No Have you lived/traveled outside [place] in past 30 days?: No Contact w/someone who lives/traveled outside US past 30 days?: No Exposure to someone with infectious disease in past 14 days?: No Do you have a fever (greater than 100.4 F or 38 C)?: No Have you tested positive for COVID-19: No Exposed to someone with COVID-19 in past 14 days?: No Do you have a sore throat?: No Do you have a cough?: No Do you have any weakness?: No Do you have any diarrhea?: No Are you experiencing any unusual bleeding?: No Do you have any muscle aches/pain?: No Do you have any abdominal pain?: No Are you experiencing loss of taste or smell?: No Other Medical History Have you received the Flu Vaccine for this season: No Have you received the Pneumonia Vaccine: No <NOAM Manuel - Last Filed: 08/26/24 21:56> ROS Obtained: Yes Systems reviewed as appropriate & no additional complaints except as documented Physical Exam <NOAM Manuel - Last Filed: 08/26/24 21:56> General General appearance: alert and in no apparent distress Respiratory Respiratory exam: Present normal lung sounds bilaterally Cardiovascular Cardiovascular exam: Present regular rate and +S2 Neurological Exam Neurological exam: Present alert and oriented X3 Medical Decision Making <NOAM Manuel - Last Filed: 08/26/24 21:56> Medical Records Medical records reviewed: Yes I reviewed the patient's medical records. Screening: Per USPSTF and CDC recommendations, given the prevalence of disease in our region, it is our hospital?s policy to screen for HIV and viral Hepatitis for all patients aged 18 and over and those with ongoing risk factors. Moustapha Inquiry Pt receiving controlled substance: No Vital Signs: 08/26/24 20:56 Temperature 98.3 F Temperature Source Oral Pulse Rate [Right Radial] 86 Respiratory Rate 15 Blood Pressure [Right Arm] 155/113 H Blood Pressure Mean [Right Arm] 127 Blood Pressure Source [Right Arm] Automatic Cuff 02 Sat by Pulse Oximetry 98 Oxygen Delivery Method Room Air Lab Data Lab results reviewed: Yes I reviewed the patient's lab results. Lab Results 08/26/24 22:07: WBC 6.0, RBC 4.79, Hgb 15.5, Hct 45.9, MCV 95.8 H, MCH 32.4 H, MCHC 33.8, RDW 12.4, Plt Count 228, MPV 10.4, Neut % (Auto) 52.6, Lymph % (Auto) 33.2, Graham % (Auto) 9.7 H, Eos % (Auto) 3.4, Baso % (Auto) 0.8, Neut # (Auto) 3.1, Lymph # (Auto) 2.0, Graham # (Auto) 0.6, Eos # (Auto) 0.2, Baso # (Auto) 0.1, Sodium 142, Potassium 4.0, Chloride 105, Carbon Dioxide 28, Anion Gap 13.0, BUN 16, Creatinine 1.10, Estimated Creat Clear 84, Estimated GFR 68, Est GFR ( Amer) 83, Glucose 107 H, Calcium 9.7, Magnesium 2.1, Total Bilirubin 0.7, AST 62 H, ALT 62, Alkaline Phosphatase 63, Total Protein 8.4 H, Albumin 4.8, Globulin 3.6 H, Albumin/Globulin Ratio 1.3, TSH 2.40, Free T4 Index 2.5 L, Thyroxine (T4) 9.4, T3 Uptake 27, HIV Ag/Ab Combo Qual Negative 08/26/24 22:07 08/26/24 22:07 Orders (Tests/Meds): ED MEDICATIONS Discontinued Medications Generic Name Dose Route Start Last Admin Trade Name Freq PRN Reason Stop Dose Admin Iopamidol 80 ml 08/26/24 22:42 08/26/24 22:43 Iopamidol-370 (76%);100ml Bottle IV 08/26/24 22:43 80 ml ONCE ONE Administration Ondansetron HCl 4 mg 08/26/24 21:21 08/26/24 22:29 Ondansetron 4mg Odt SL 08/26/24 21:22 4 mg ONCE ONE Administration Sodium Chloride 50 ml 08/26/24 22:42 08/26/24 22:43 0.9 % Sodium Chloride 50 Ml Vial IV 08/26/24 22:43 50 ml ONCE ONE Administration Sodium Chloride 10 ml 08/26/24 22:42 08/26/24 22:43 Sodium Chloride 0.9% 10ml Syr (Rad Only) IV 08/26/24 22:43 10 ml ONCE ONE Administration ORDERS Category Date Time Status CT angio head Stat Cat Scan 08/26/24 21:[address] angio neck Stat Cat Scan 08/26/24 21:[address] head/brain wo con Stat Cat Scan 08/26/24 21:21 Completed CBC w/Auto Diff [Complete Blood Count Auto Diff] Stat Lab 08/26/24 22:07 Completed CMP [Comprehensive Metabolic Panel] Stat Lab 08/26/24 22:07 Completed HIV Combo Routine Lab 08/26/24 22:07 Completed Hepatitis C Ab Qual. W/ RFX Routine Lab 08/26/24 22:07 Received Magnesium Stat Lab 08/26/24 22:07 Completed Thyroid Panel Stat Lab 08/26/24 22:07 Completed Medical Decision Narrative: In summary patient is a 59-year-old male who presents to the emergency department for evaluation of eye pressure and brain fog. Patient is initially hypertensive with a blood pressure 155/113 pulse is 86 normal sinus rhythm on the bedside monitor breathing 15 times a minute satting at 98% on room air upon arrival, afebrile at 98.3. Physical exam reveals pupils equal round reactive to light, patient does have comfort on palpation over the maxillary and frontal sinuses but the midface is stable. There is no pain with extraocular muscle exam he has full range of motion intact without pain. No nystagmus.. Cervical spine has no tenderness in the midline he has full range of motion of the C- spine. Patient has no focal neurologic deficits and is awake alert and oriented person place circumstance cranial nerves II through XII intact grossly to exam. Patient has had an upper mouth extraction although he has significant dental caries in the lower mouth no evidence of cellulitis or infection currently. Posterior pharynx is patent neck is supple without JVD lymphadenopathy no carotid bruits heard. Differential diagnosis includes sinusitis versus infection versus possible occult stroke versus other neurologic dysfunction etc. Initial workup will be conducted with CT scan head without contrast CTA of the head neck hematologic labs. Initial interventions include Zofran for now. Initial workup ordered and pending at the time of handoff to Dr. Callahan at 2200 hrs. <Home Callahan MD - Last Filed: 08/26/24 23:24> Vital Signs: 08/26/24 20:56 Temperature 98.3 F Temperature Source Oral Pulse Rate [Right Radial] 86 Respiratory Rate 15 Blood Pressure [Right Arm] 155/113 H Blood Pressure Mean [Right Arm] 127 Blood Pressure Source [Right Arm] Automatic Cuff 02 Sat by Pulse Oximetry 98 Oxygen Delivery Method Room Air Lab Data Lab Results 08/26/24 22:07: WBC 6.0, RBC 4.79, Hgb 15.5, Hct 45.9, MCV 95.8 H, MCH 32.4 H, MCHC 33.8, RDW 12.4, Plt Count 228, MPV 10.4, Neut % (Auto) 52.6, Lymph % (Auto) 33.2, Graham % (Auto) 9.7 H, Eos % (Auto) 3.4, Baso % (Auto) 0.8, Neut # (Auto) 3.1, Lymph # (Auto) 2.0, Graham # (Auto) 0.6, Eos # (Auto) 0.2, Baso # (Auto) 0.1, Sodium 142, Potassium 4.0, Chloride 105, Carbon Dioxide 28, Anion Gap 13.0, BUN 16, Creatinine 1.10, Estimated Creat Clear 84, Estimated GFR 68, Est GFR ( Amer) 83, Glucose 107 H, Calcium 9.7, Magnesium 2.1, Total Bilirubin 0.7, AST 62 H, ALT 62, Alkaline Phosphatase 63, Total Protein 8.4 H, Albumin 4.8, Globulin 3.6 H, Albumin/Globulin Ratio 1.3, TSH 2.40, Free T4 Index 2.5 L, Thyroxine (T4) 9.4, T3 Uptake 27, HIV Ag/Ab Combo Qual Negative Orders (Tests/Meds): ED MEDICATIONS Discontinued Medications Generic Name Dose Route Start Last Admin Trade Name Freq PRN Reason Stop Dose Admin Iopamidol 80 ml 08/26/24 22:42 08/26/24 22:43 Iopamidol-370 (76%);100ml Bottle IV 08/26/24 22:43 80 ml ONCE ONE Administration Ondansetron HCl 4 mg 08/26/24 21:21 08/26/24 22:29 Ondansetron 4mg Odt SL 08/26/24 21:22 4 mg ONCE ONE Administration Sodium Chloride 50 ml 08/26/24 22:42 08/26/24 22:43 0.9 % Sodium Chloride 50 Ml Vial IV 08/26/24 22:43 50 ml ONCE ONE Administration Sodium Chloride 10 ml 08/26/24 22:42 08/26/24 22:43 Sodium Chloride 0.9% 10ml Syr (Rad Only) IV 08/26/24 22:43 10 ml ONCE ONE Administration ORDERS Category Date Time Status CT angio head Stat Cat Scan 08/26/24 21:[address] angio neck Stat Cat Scan 08/26/24 21:[address] head/brain wo con Stat Cat Scan 08/26/24 21:21 Completed CBC w/Auto Diff [Complete Blood Count Auto Diff] Stat Lab 08/26/24 22:07 Completed CMP [Comprehensive Metabolic Panel] Stat Lab 08/26/24 22:07 Completed HIV Combo Routine Lab 08/26/24 22:07 Completed Hepatitis C Ab Qual. W/ RFX Routine Lab 08/26/24 22:07 Received Magnesium Stat Lab 08/26/24 22:07 Completed Thyroid Panel Stat Lab 08/26/24 22:07 Completed Medical Decision Narrative: In summary patient is a 59-year-old male who presents to the emergency department for evaluation of eye pressure and brain fog. Patient is initially hypertensive with a blood pressure 155/113 pulse is 86 normal sinus rhythm on the bedside monitor breathing 15 times a minute satting at 98% on room air upon arrival, afebrile at 98.3. Physical exam reveals pupils equal round reactive to light, patient does have comfort on palpation over the maxillary and frontal sinuses but the midface is stable. There is no pain with extraocular muscle exam he has full range of motion intact without pain. No nystagmus.. Cervical spine has no tenderness in the midline he has full range of motion of the C- spine. Patient has no focal neurologic deficits and is awake alert and oriented person place circumstance cranial nerves II through XII intact grossly to exam. Patient has had an upper mouth extraction although he has significant dental caries in the lower mouth no evidence of cellulitis or infection currently. Posterior pharynx is patent neck is supple without JVD lymphadenopathy no carotid bruits heard. Differential diagnosis includes sinusitis versus infection versus possible occult stroke versus other neurologic dysfunction etc. Initial workup will be conducted with CT scan head without contrast CTA of the head neck hematologic labs. Initial interventions include Zofran for now. Initial workup ordered and pending at the time of handoff to Dr. Callahan at [address] Callahan 11:23 PM I reviewed the patient CT scan of his head and CT angios of head and neck personally interpreted them. Specifically no evidence of any cranial pathology and no evidence of any significant sinusitis or opacification in the sinus cavities. Radiology reads consistent with no acute intracranial abnormalities and no vascular pathology. Labs otherwise unremarkable. Serial exams are benign. Patient symptoms are concerning from a chronic standpoint and I advised that he follow-up closely with neurology he has an appointment with Dr. Casanova in October but I recommend that he call around to other healthcare systems to see if he came to get in to be seen sooner by neurology. He and his family are understanding of this plan they understand that there is no emergent neurovascular or intracranial abnormalities that were found nor any further recommendation or need for inpatient hospitalization etc. They understand the need for close outpatient follow-up and return precautions were emphasized patient was discharged in stable condition. Critical Care <NOAM Manuel - Last Filed: 08/26/24 21:56> Critical Care Time Critical Care Time: No
[2024-08-26 20:56] VITALS: BP 155/113; PULSE 86; RESP 15; TEMP 36.8; O2SAT 98; BMI 26.4
--- NOTE | 2024-08-26 21:21 | CT_ITS ---
PROCEDURE INFORMATION: Exam: CTA Head With Contrast, Arteriography Exam date and time: 08/26/2024 10:43 PM Age: 59 years old Clinical indication: Visual disturbance; Additional info: Blurred vision TECHNIQUE: Imaging protocol: Computed tomographic angiography of the head with contrast. Exam focused on the arteries. 3D rendering (Not supervised by radiologist): MIP and/or 3D reconstructed images were created by the technologist. Radiation optimization: All CT scans at this facility use at least one of these dose optimization techniques: automated exposure control; mA and/or kV adjustment per patient size (includes targeted exams where dose is matched to clinical indication); or iterative reconstruction. Contrast material: ISOVUE; Contrast volume: 80 ml; Contrast route: INTRAVENOUS (IV); COMPARISON: CT ANGIO HEAD 11/03/2023 4:51 PM FINDINGS: ANTERIOR CIRCULATION: Right internal carotid artery: Intracranial segment is patent with no significant stenosis. No aneurysm. Right middle cerebral artery: No occlusion or significant stenosis. No aneurysm. Right anterior cerebral artery: No occlusion or significant stenosis. No aneurysm. Left internal carotid artery: Intracranial segment is patent with no significant stenosis. No aneurysm. Left middle cerebral artery: No occlusion or significant stenosis. No aneurysm. Left anterior cerebral artery: No occlusion or significant stenosis. No aneurysm. POSTERIOR CIRCULATION: Right vertebral artery: No occlusion or significant stenosis. No aneurysm. Left vertebral artery: The left vertebral artery ends in PICA. Basilar artery: No occlusion or significant stenosis. No aneurysm. Right posterior cerebral artery: origin of the right BRIM SETTER. Left posterior cerebral artery: No occlusion or significant stenosis. No aneurysm. Brain: No definite mass, mass effect, or midline shift. Cerebral ventricles: No ventriculomegaly. Bones/joints: Unremarkable. No acute fracture. Soft tissues: Unremarkable. IMPRESSION: No acute findings.
--- NOTE | 2024-08-26 21:21 | CT_ITS ---
PROCEDURE INFORMATION: Exam: CT Head Without Contrast Exam date and time: 08/26/2024 10:41 PM Age: 59 years old Clinical indication: Visual disturbance; Additional info: Blurred vision TECHNIQUE: Imaging protocol: Computed tomography of the head without contrast. Radiation optimization: All CT scans at this facility use at least one of these dose optimization techniques: automated exposure control; mA and/or kV adjustment per patient size (includes targeted exams where dose is matched to clinical indication); or iterative reconstruction. COMPARISON: CT ANGIO HEAD 11/03/2023 4:51 PM FINDINGS: Brain: Mild brain volume loss. No mass, hemorrhage or acute infarct. Cerebral ventricles: No ventriculomegaly. Paranasal sinuses: Visualized sinuses are unremarkable. No fluid levels. Mastoid air cells: Visualized mastoid air cells are well aerated. Bones: Unremarkable. No acute fracture. Soft tissues: Unremarkable. IMPRESSION: No acute intracranial findings.
--- NOTE | 2024-08-26 21:21 | CT_ITS ---
PROCEDURE INFORMATION: Exam: CTA Neck With Contrast Exam date and time: 08/26/2024 10:43 PM Age: 59 years old Clinical indication: Visual disturbance; Additional info: Blurred vision TECHNIQUE: Imaging protocol: Computed tomographic angiography of the neck with contrast. Exam focused on the cervical segments of the vasculature. 3D rendering (Not supervised by radiologist): MIP and/or 3D reconstructed images were created by the technologist. Radiation optimization: All CT scans at this facility use at least one of these dose optimization techniques: automated exposure control; mA and/or kV adjustment per patient size (includes targeted exams where dose is matched to clinical indication); or iterative reconstruction. Contrast material: ISOVUE; Contrast volume: 80 ml; Contrast route: INTRAVENOUS (IV); COMPARISON: CT ANGIO NECK 11/03/2023 4:51 PM FINDINGS: Right common carotid artery: No stenosis. No dissection or occlusion. Right internal carotid artery: No stenosis of the extracranial segment. No dissection or occlusion. Right external carotid artery: No occlusion or stenosis of the origin. Left common carotid artery: Mild atherosclerotic changes of the left carotid bulb. Left internal carotid artery: No stenosis of the extracranial segment. No dissection or occlusion. Left external carotid artery: No occlusion or stenosis of the origin. Right vertebral artery: No stenosis. No dissection or occlusion. Left vertebral artery: No stenosis. No dissection or occlusion. Soft tissues: Normal. No significant soft tissue swelling. Bones/joints: Degenerative changes of the spine. IMPRESSION: No acute findings. REFERENCES: NASCET CRITERIA. The degree of stenosis in the cervical segment of the internal carotid artery is based on NASCET criteria. Normal is no stenosis. Mild is less than 50% stenosis. Moderate is 50-69% stenosis. Severe is 70% to 99% stenosis. Total occlusion is no detectable patent lumen.
--- NOTE | 2024-08-26 22:01 | PC.NURSE ---
Attempted IV right fore arm without suc. Barbara Bello Attempting IV now.
[2024-08-26 22:20] LABS: Basophils # 0.1 K/mm3 (0-0.2); Basophils % 0.8 % (0.1-2.0); Eosinophils # 0.2 K/mm3 (0.0-0.4); Eosinophils % 3.4 % (0.1-12.0); Hematocrit 45.9 % (42.0-52.0); Hemoglobin 15.5 g/dL (14.1-18.0); Lymphocytes % 33.2 % (10-50); Mean Corpuscular HGB Conc 33.8 g/dL (31.8-35.4); Mean Corpuscular Hemoglobin 32.4 pg (27.0-31.2); Mean Corpuscular Volume 95.8 fl (80-94); Mean Platelet Volume 10.4 fl (7.4-10.4); Monocytes # 0.6 K/mm3 (0.1-1.0); Monocytes % 9.7 % (1.7-9.3); Neutrophils # 3.1 K/mm3 (1.8-7.8); Neutrophils % 52.6 % (37.0-80.0); Nucleated Red Blood Cells # 0 10^3/uL; Nucleated Red Blood Cells % 0 %; Platelet Count 228 K/mm3 (142-424); Red Blood Count 4.79 M/mm3 (4.60-6.20); Red Cell Distribution Width 12.4 % (11.5-17.5); Red Cell Distribution Width-SD 44.3 fL
[2024-08-26 22:26] LABS: Albumin Level 4.8 g/dl (3.5-5.0); Chloride 105 mmol/L (98-107); Sodium 142 mmol/L (136-145)
[2024-08-26 22:29] LABS: Alanine Aminotransferase 62 U/L (12-78); Alkaline Phosphatase 63 U/L (38-126); Aspartate Amino Transferase 62 U/L (17-59); Bilirubin,Total 0.7 mg/dl (0.2-1.3); Blood Urea Nitrogen 16 mg/dl (9-20); Creatinine Clearance Estimated 84 mL/min (50-200); Estimated Glomerular Filt Rate 68 ml/min (>60); GFR (African American) 83 ML/MIN (>60); Glucose 107 mg/dl (74-100); Total Protein,Serum 8.4 g/dl (6.3-8.2)
[2024-08-26] MEDS: ONDANSETRON 4MG ODT 4 MG SL (22:29)
[2024-08-26 22:30] LABS: Calcium 9.7 mg/dl (8.4-10.2); Magnesium 2.1 mg/dl (1.6-2.3)
[2024-08-26 22:31] LABS: Albumin/Globulin Ratio 1.3 (1.1-1.8); Carbon Dioxide 28 mmol/L (22.0-30.0); Globulin 3.6 g/dL (1.3-3.2)
[2024-08-26] MEDS: 0.9 % SODIUM CHLORIDE 50 ML VIAL IV (22:43)
[2024-08-26] MEDS: SODIUM CHLORIDE 0.9% 10ML SYR (RAD ONLY) 10 ML IV (22:43)
[2024-08-26] MEDS: IOPAMIDOL-370 (76%);100ML BOTTLE 80 ML IV (22:43)
[2024-08-26 22:46] LABS: Triiodothryronine (T3) Uptake 27 % (23.5-40.5)
[2024-08-26 22:47] LABS: Free Thyroxine Index 2.5 ug/dL (5.93-13.13); T4 (Thyroxine) 9.4 ug/dl (5.53-11.0)
[2024-08-26 23:17] LABS: HIV Combo NEGATIVE (Negative)
[2024-08-26 23:25] LABS: Hepatitis C Ab Qual. W/ RFX NEGATIVE (Negative)
[2024-08-26 23:32] VITALS: BP 134/68; PULSE 74; RESP 14; TEMP 37.2; O2SAT 100
== END 2024-08-26 23:32 | disposition home or self-care (01) ==
PROVIDERS: Physician Assistant; Emergency Provider Student in an Organized Health Care Education/Training Program; PCP Physician Assistant
DX: R41.82 Altered mental status, unspecified (principal); H53.8 Other visual disturbances; I10 Essential (primary) hypertension; Z11.59 Encounter for screening for other viral diseases; Z11.4 Encounter for screening for human immunodeficiency virus [HIV]
CPT/HCPCS: 70450; 70496; 70498; 80053; 83735; 84436; 84443; 84479; 85025; 86803; 87389; 99285; Q0162; Q9967

== ENCOUNTER 2024-10-08 21:39 | Emergency (ER) | payer BC, SELFPAY ==
--- OUTSIDE RECORDS SUMMARY | 2024-08-15 23:45 | XMS_ITS | Continuity of Care Document ---
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 steroids (Free Text Allergy) Adverse reaction to substance Not Specified active [id number] on August 13, 2024 4:22:29 PM [facility] FAMILY HISTORY RELATION: Father Status: Cause of : Cirrhosis of liver Age at : Unknown SNOMED-CT Diagnosis Age At Onset Information not available RELATION: Mother Status: LIVING SNOMED-CT Diagnosis Age At Onset [id number] Diabetes mellitus [id number] Diverticulitis [id number] Cataract RELATION: Sister Status: LIVING SNOMED-CT Diagnosis Age At Onset [id number] Diabetes mellitus [id number] Disorder of thyroid gland 9900003 Arthritis RELATION: Daughter Status: LIVING SNOMED-CT Diagnosis Age At Onset Information not available RELATION: Daughter Status: LIVING SNOMED-CT Diagnosis Age At Onset Information not available RESULTS Patient: KING IAIN Gonzalez Date of : [birth year] LABORATORY RESULTS ORDER 100: COMP METABOLIC PA EVELIN (LOINC: 58788-3) ORDER DATE: August 13, 2024 4:27:00 PM [place] Specimen Source: Serum/Plasm a Specimen Type: Acellular blo od (serum or plasma) specimen PERFORMING LAB: [address] [id number] Result Comment: Final Result Date: August 13, 2024 4:47:00 PM UT (TECH: HC) LOINC TEST FLAG RESULT REFERENCE RANGE UPDA SCOTT BY 2951-2 Sodium [Moles/volume ] in Serum or Plasma N 138 mmol/L 136 mmol/L - 145 mmol/L August 13, 2024 4:47:00 PM UTC (TECH: HC) 2823-3 Potassium [Moles/volume] in Serum or Plasma N 3.9 mmol/L 3.5 mmol/L - 5.1 mmol/L August 13, 2024 4:47:00 PM UTC (TECH: HC) 5-0 Chloride [Moles/volu me] in Serum or Plasma N 102 mmol/L 98 mmol/L - 107 mmol/L August 13, 2024 4:47:00 PM UTC (TECH: HC) 2027-9 Carbon dioxide, tota l [Moles/volume] in Serum or Plasma N 30 mmol/L 21 mmol/L - 32 mmol/L August 13, 2024 4:47:00 PM UT (TECH: Smaato) 79040-7 Anion gap 3 in Serum or Plasma N 6.0 August 13, 2024 4:47:00 PM UTC (TECH: Smaato) 2345-7 Glucose [Mass/volume ] in Serum or Plasma N 105 mg/dL 70 mg/dL - 110 mg/dL August 13, 2024 4:47:00 PM UTC (TECH: HC) 3094-0 Urea nitrogen [Mass/volume] in Serum or Plasma N 15 mg/dL 7 mg/dL - 18 mg/dL August 13, 2024 4:47:00 PM UT (TECH: HC) 2160-0 Creatinine [Mass/volume] in Serum or Plasma H 1.6 mg/dL 0.8 mg/dL - 1.3 mg/dL August 13, 2024 4:47:00 PM UT (TECH: HC) 3097-3 Urea nitrogen/Creatinine [Mass Ratio] in Serum or Plasma N 9.4 9 - August 13, 2024 4:47:00 PM UTC (TECH: Smaato) 44866-9 Glomerular filtratio n rate/1.73 sq M.predicted by Creatinine-based formula (MDRD) L 49 mL/min >60 August 13, 2024 4:47:00 PM UT (TECH: HC) 52167-7 Osmolality of Serum or Plasma by calculated by sum of electrolytes N 288 mosm/kg 275 mosm/kg - 301 mosm/kg August 13, 2024 4:47:00 PM UT (TECH: Smaato) 2885-2 Protein [Mass/volume ] in Serum or Plasma H 8.7 g/dL 6.4 g/dL - 8.2 g/dL August 13, 2024 4:47:00 PM UT (TECH: Smaato) 1751-7 Albumin [Mass/volume ] in Serum or Plasma N 4.7 g/dL 3.4 g/dL - 5.0 g/dL August 13, 2024 4:47:00 PM UT (TECH: Smaato) 42615-1 Calcium [Mass/volume ] in Serum or Plasma H 10.3 mg/dL 8.5 mg/dL - 10.1 mg/dL August 13, 2024 4:47:00 PM UT (TECH: Smaato) 79799-8 Calcium [Mass/volume ] corrected for total protein in Serum or Plasma N 9.7 mg/dL 8.5 mg/dL - 10.1 mg/dL August 13, 2024 4:47:00 PM [facility] (nooked: Smaato) 1975-2 Bilirubin.total [Mass/volume] in Serum or Plasma N 0.7 mg/dL 0.4 mg/dL - 1.5 mg/dL August 13, 2024 4:47:00 PM UT (TECH: Smaato) 1920-8 Aspartate aminotransferase [Enzymatic activity/volume] in Serum or Plasma H 44 U/L 15 U/L - 37 U/L August 13, 2024 4:47:00 PM [facility] (TECH: Smaato) 1742-6 Alanine aminotransferase [Enzymatic activity/volume] in Serum or Plasma N 60 U/L 12 U/L - 78 U/L August 13, 2024 4:47:00 PM [facility] (TECH: Smaato) 6768-6 Alkaline phosphatase [Enzymatic activity/volume] in Serum or Plasma N 95 U/L 40 U/L - 110 U/L August 13, 2024 4:47:00 PM UT (TECH: Smaato) ORDER 200: CBC AUTO W DIFF ( LOINC: 83785-6) ORDER DATE: August 13, 2024 4:27:00 PM UT Specimen Source: Whole Blood Specimen Type: Whole blood s ample PERFORMING LAB: [address] [id number] Result Comment: Final Result Date: August 13, 2024 4:32:00 PM UTC (TECH: MRB) LOINC TEST FLAG RESULT REFERENCE RANGE UPDA SCOTT BY 6690-2 Leukocytes [#/volume] in Blood by Automated count N 6.6 10^3/uL 4.5 10^3/uL - 11.5 10^3/uL August 13, 2024 4:32:00 PM UTC (TECH: MRB) 789-8 Erythrocytes [#/volume] in Blood by Automated count N 5.20 10^6/uL 4.25 10^6/uL - 5.57 10^6/uL August 13, 2024 4:32:00 PM UTC (TECH: MRB) 718-7 Hemoglobin [Mass/volume] in Blood N 16.7 g/dL 13.5 g/dL - 17.2 g/dL August 13, 2024 4:32:00 PM UTC (TECH: MRB) 18090-4 Hematocrit [Volume Fraction] of Blood N 50.2 % 42.0 % - 52.0 % August 13, 2024 4:32:00 PM UTC (TECH: MRB) 787-2 Erythrocyte mean corpuscular volume [Entitic volume] by Automated count H 96.5 fl 80 fl - 95 fl August 13, 2024 4:32:00 PM UTC (TECH: MRB) 05908-6 Erythrocyte mean corpuscular hemoglobin [Entitic mass] in Blood from Fetus by Automated count N 32.1 pg 27.0 pg - 34.0 pg August 13, 2024 4:32:00 PM UTC (TECH: MRB) 80403-2 Erythrocyte mean corpuscular hemoglobin concentration [Mass/volume] in Blood from Fetus by Automated count N 33.3 g/dL 32.0 g/dL - 36.0 g/dL August 13, 2024 4:32:00 PM UTC (TECH: MRB) 16044-8 Platelets [#/volume] in Blood N 220 10^3/uL 150 10^3/uL - 450 10^3/uL August 13, 2024 4:32:00 PM UTC (TECH: MRB) 85136-8 Erythrocyte distribution width [Ratio] N 12.5 % 12.3 % - 15.1 % August 13, 2024 4:32:00 PM UTC (TECH: MRB) 59094-8 Platelet mean volume [Entitic volume] in Blood by Automated count H 11.0 fl 7.4 fl - 10.4 fl August 13, 2024 4:32:00 PM UTC (TECH: MRB) 52684-3 Granulocytes/100 leukocytes in Blood by Automated count N 61.6 % 40 % - 75 % August 13, 2024 4:32:00 PM UTC (TECH: MRB) 736-9 Lymphocytes/100 leukocytes in Blood by Automated count N 30.2 % 15 % - 57 % August 13, 2024 4:32:00 PM UTC (TECH: MRB) 5905-5 Monocytes/100 leukocytes in Blood by Automated count N 6.3 % 4.0 % - 12.0 % August 13, 2024 4:32:00 PM UTC (TECH: MRB) 713-8 Eosinophils/100 leukocytes in Blood by Automated count N 1.2 % 0.0 % - 4.0 % August 13, 2024 4:32:00 PM UTC (TECH: MRB) 706-2 Basophils/100 leukocytes in Blood by Automated count N 0.5 % 0.0 % - 1.0 % August 13, 2024 4:32:00 PM UTC (TECH: MRB) 06401-6 Immature granulocytes [#/volume] in Blood N 0.2 % 0.0 % - 0.8 % August 13 4:32:00 PM UTC (TECH: MRB) 05228-6 Granulocytes [#/volume] in Blood by Automated count N 4.05 10^3/uL August 13, 2024 4:32:00 PM UTC (TECH: MRB) 731-0 Lymphocytes [#/volume] in Blood by Automated count N 1.98 10^3/uL August 13, 2024 4:32:00 PM UTC (TECH: MRB) 742-7 Monocytes [#/volume] in Blood by Automated count N 0.41 10^3/uL August 13, 2024 4:32:00 PM UTC (TECH: MRB) 711-2 Eosinophils [#/volume] in Blood by Automated count N 0.08 10^3/uL August 13, 2024 4:32:00 PM UTC (TECH: MRB) 704-7 Basophils [#/volume] in Blood by Automated count N 0.03 10^3/uL August 13, 2024 4:32:00 PM UTC (TECH: MRB) 02048-0 Immature granulocytes [#/volume] in Blood N 0.01 10^3/uL August 13 4:32:00 PM UTC (TECH: MRB) 03263-2 Manual differential performed [Presence] in Blood N NO August 13, 2024 4:32:00 PM UTC (TECH: MRB) ORDER 300: TROPONIN I 1 HOUR PROTOCOL (LOINC: 47395-5) ORDER DATE: August 13, 2024 4:27:00 PM UTC Specimen Source: Plasma Specimen Type: Plasma specim en PERFORMING LAB: [place] [id number] Result Comment: Final Result Date: August 13, 2024 5:52:00 PM UTC (TECH: HC) LOINC TEST [place] [address]-4 Troponin I.cardiac panel - Serum or Plasma by High sensitivity method N 4 ng/L 0 ng/L - 76 ng/L August 13 5:52:00 PM UTC (TECH: HC) ORDER 400: TROPONIN QUANT (L OINC: 92223-0) ORDER DATE: August 13, 2024 4:27:00 PM UTC Specimen Source: Serum/Plasm a Specimen Type: Acellular blo od (serum or plasma) specimen PERFORMING LAB: [address] [id number] Result Comment: Final Result Date: August 13, 2024 4:47:00 PM UTC (TECH: HC) LOINC TEST [place] [address]-6 Troponin I.cardiac p lenny - Serum or Plasma by High sensitivity method N 4 ng/L 0 ng/L - 76 ng/L August 13 4:47:00 PM UTC (TECH: HC) LABORATORY NARRATIVE RESULTS Information is not available RADIOLOGY RESULTS ORDER 500: CHEST SINGLE VIEW /PORTABLE (LOINC: 79903-6) ORDER DATE: August 13, 2024 4:27:00 PM UTC PERFORMING LAB: [address] [id number] Final Result Date: August 13, 2024 6:24:27 PM [facility] [address] [id number] Name: IAIN MUNOZ Exam Date: 08/13/2024 : 1965 Age 59 years Gender: M Physician: MARCI KUHN Facility: PSYCHIATRIC Facility HSV: Outpatient Exam: CHEST SINGLE VIEW/PORTABLE EXAMINATION: XR CHEST 1 VIEW PORTABLE CLINICAL INDICATION: Male, 59 years old. Chest pain. COMPARISON: XR Chest 01/16/2024. TECHNIQUE: AP portable view of the chest. 1 view. FINDINGS: Heart size is normal. Mediastinal and hilar contours are within normal limits. The lungs are clear. There is no pleural effusion or pneumothorax. IMPRESSION: Normal portable single view chest radiograph. Electronically signed by: Italo Hopkins MD 08/13/2024 02:34 PM EDT Dictated By: Italo Hopkins Transcribed By: Transcribed On: 08/13/2024 2:24 PM Electronically signed by: Italo Hopkins 08/13/2024 Thank you for referring IAIN MUNOZ to [facility]. Legally authenticated by NAYELY AMEZCUA MD 2024-08-13 14:24:27 PATHOLOGY NARRATIVE RESULTS Information is not available MICROBIOLOGY RESULTS No Micro Labs/Results Exist for Patient BLOOD ADMIN RESULTS Information is not available TREATMENT PLAN DISCHARGE MEDICATIONS Status RXNORM Medication Dose Route Frequency Dates Comments U pdated By Patient discharge medication information is not available. PATIENT OPEN ORDERS Code System Description Frequency Occurrences Priority [place] [address] [facility] EKG study ONE TIME 0 Stat August 13, 2024 4:27:00 PM [facility] HATTIE COVARRUBIAS DO [id number] on August 13, 2024 4:27:00 PM [facility] SCHEDULED PROCEDURES Code System Description Status Scheduled Date Upd ated By Patient scheduled procedure information is not available. MEDICATIONS HOME MEDICATIONS Status RXNORM [facility] Medication Dose Route Frequency Dates Comments Reported By Updated By Active 744007 856320 88283 hydroxyzine pamoate 25 mg capsule 1.0 CAP ORAL PRN Last Dose: [id number] on August 13, 2024 4:22:31 PM [facility] Active FreeTe xtMed metoprolol 100 mg 0.0 DAILY Last Dose: [id number] on August 13, 2024 4:22:31 PM [place] Active 468905 404154 99553 Norvasc 2.5 mg tablet 1.0 TAB ORAL DAILY Last Dose: [id number] on August 13, 2024 4:22:31 PM [facility] Active 604361 458195 04763 Valium 5 mg tablet 1.5 TAB ORAL PRN Last Dose: [id number] on August 13, 2024 4:22:31 PM [facility] DISCHARGE MEDICATIONS Status RXNORM NDC Medication Dose Route Frequency Dates Comments Physician Updated By No Discharge Medication Info rmation Available INPATIENT MEDICATIONS Status RXNORM ND Medication Dose Route Frequency Rat e Quantity Dates Comments Physician Updated By No Inpatient Medication Info rmation Available SOCIAL HISTORY SOCIAL HISTORY SNOMED-CT Social History Element Description Effective Dates Offered Cessation Comment UpdatedBy [id number] Current Tobacco smoking status Never Smoked [id number] on August 13, 2024 4:22:51 PM [facility] [id number] Historical Tobacco smoking status Current Every Day Smoker [id number] on July 13, 2024 12:44:51 PM [facility] SOCIAL HISTORY - Gender Sex: Male SOCIAL HISTORY - Status : status i nformation is not available Intention in Next Year: intention information is not available SOCIAL HISTORY - Sexual Behavior Sexual Orientation Gender Identity SNOMED-CT Description SNO MED -CT Description Activity Level No of Partners Partner Type UpdatedBy Information is not available VITAL SIGNS PATIENT VITAL SIGNS This section displays the mo st recent value for each vital sign as of August 16, 2024 3:45:51 AM [facility] Loinc Code Vital Sign [place] [address]-5 Body weight Measured August 13 4:24:30 PM [facility] 85.0 kg (187.0 lb) [id number] on August 13, 2024 4:24:30 PM [facility] 8462-4 Diastolic blood pressure August 13, 2024 6:26:34 PM [facility] 80.0 mm[Hg] [id number] on August 14, 2024 6:27:43 PM [facility] 8867-4 Heart rate August 13, 2024 6:26:34 PM [facility] 70 /min [id number] on August 14, 2024 6:27:43 PM [facility] 63093-5 Oxygen saturation in Arterial blood by Pulse oximetry August 13, 2024 6:26:34 PM UTC 99.0 % [id number] on August 14, 2024 6:27:43 PM [facility] 9279-1 Respiratory rate August 13, 2024 6:26:34 PM UTC 18 /min [id number] on August 14, 2024 6:27:43 PM [place] 8480-6 Systolic blood pressure August 13, 2024 6:26:34 PM UTC 146.0 mm[Hg] [id number] on August 14, 2024 6:27:43 PM UT PEDIATRIC GROWTH CHART - VITAL SIGNS This section displays Head C ircumference Percentile, Weight for Length Percentile and BMI Percentile Loinc Code Pediatric Measure Age (Months) Result Updat ed By No Pediatric Growth Chart Pe rcentile Information Available. HEALTH CONCERNS Problems Concern Status Health Concern problem infor mation not available. Smoking Status Status Years Used Consumed packs p er day Health Concern smoking histo ry information not available. Family History Concern Status Health Concern family histor y information not available. ENCOUNTERS ENCOUNTER INFORMATION Reason for Visit CHEST DISCOMFORT Admission August 13, 2024 4:11:[address] [id number] Discharge August 13, 2024 6:27:00 PM UT DIS CHARGED TO HOME OR SELF CARE ENCOUNTER DIAGNOSES Notes information is not ochoa ilable. Code System Diagnosis Onset Date Diagnosis information is not available. 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 Role MARCI KUHN Admitting MARCI KUHN Primary Attending MARCI KUHN Referring Rodolfo CRAIN Primary Care CARE TEAM CARE champagne maker Role on Team Status Start Date End Date Update d By HATTIE COVARRUBIAS DO Referring normal August 13 5:21:46 PM UTC August 13, 2024 6:27:00 PM UTC [id number] on August 13, 2024 5:21:46 PM UTC HATTIE COVARRUBIAS DO Attending normal August 13 5:21:46 PM UTC August 13, 2024 6:27:00 PM UTC [id number] on August 13, 2024 5:21:46 PM UTC AHTTIE COVARRUBIAS DO Admitting normal August 13 5:21:46 PM UTC August 13, 2024 6:27:00 PM UTC [id number] on August 13, 2024 5:21:46 PM UTC [facility] normal August 13 4:11:28 PM UTC August 13, 2024 6:27:00 PM UTC [id number] on August 13, 2024 5:21:46 PM UTC
--- NOTE | 2024-10-08 21:41 | ECG_ITS ---
APPROVED REPORT Exam: Resting ECG HR:94 bpm ECG Measurements Heart Rate 94 AXES PA 154 P 73 QRSd 80 QRS 31 QT 337 T 66 QTc 389 Conclusion SINUS RHYTHM NORMAL ECG Electronically signed by : CHANDANA HOUSTON, 10/10/2024 12:36:17
[2024-10-08 21:42] VITALS: BP 161/103; PULSE 98; RESP 19; TEMP 36.5; O2SAT 98; BMI 25.8
[2024-10-08 21:48] VITALS: BP 155/101; PULSE 86; O2SAT 99
--- NOTE | 2024-10-08 21:48 | ED_ITS ---
Discharge Plan Disposition Patient Disposition: Home, Self-Care Prescriptions Prescriptions: No Action levocetirizine 5 mg tablet 5 mg PO DAILY Patient Comments: TAKE 1 TABLET BY MOUTH ONCE DAILY FOR 30 DAYS amlodipine 5 mg tablet 5 mg PO DAILY Qty: 90 0RF aspirin [Adult Aspirin Regimen] 81 mg tablet,delayed release (DR/EC) 81 mg PO DAILY Qty: 90 0RF atorvastatin 40 mg tablet 40 mg PO HS Qty: 30 2RF buspirone 15 mg tablet 15 mg PO BID Qty: 60 2RF desvenlafaxine succinate [Pristiq] 50 mg tablet extended release 24 hr 50 mg PO DAILY Qty: 30 2RF metoprolol succinate 100 mg tablet extended release 24 hr 100 mg PO DAILY Qty: 90 3RF mirtazapine [Remeron] 15 mg tablet 15 mg PO HS Qty: 30 2RF pantoprazole 20 mg tablet,delayed release (DR/EC) 20 mg PO DAILY Qty: 90 3RF cefdinir 300 mg capsule 300 mg PO Q12H 10 Days Qty: 20 0RF diazepam 5 mg tablet 5 mg PO DAILY PRN (Reason: only for acute and severe anxiety) 30 Days Qty: 25 0RF Referrals Follow up/Referrals: Lili Frank PA [Primary Care Provider, Family Practice] - See instructions Activity Restrictions/Add. Instructions Additional Instructions/Restrictions: Follow-up with your primary care doctor. Please return to the ER with any new, concerning, or worsening symptoms. Clinical Impressions Clinical Impression: Hypertension Chest pain Qualifiers: Chest pain type: unspecified Qualified Code(s): R07.9 - Chest pain, unspecified Print Language Print Language: [place] Discharge ED Provider: Abel Balderas General Adult HPI General Chief complaint: Chest Pain Stated complaint: chest pain Time Seen by Provider: 10/08/24 21:48 Mode of Arrival: Ambulatory Source of Information: Patient Limitations: No Limitations History of Present Illness HPI narrative: This is a 59-year-old male with a past medical history of anxiety and hypertension who presents with concern for chest pain and high blood pressure that occurred earlier today. States that he was out mowing his lawn whenever he developed an acute onset left-sided chest pain that radiated across his chest. States that the pain was brief and has since resolved. States he went home and checked his blood pressure and his systolic blood pressure was in the 170s. Took his home blood pressure medicines including his metoprolol and amlodipine. States that he is currently asymptomatic however wanted to be checked out. Related Data Home Medications ?Medication ?Instructions ?Recorded ?Confirmed levocetirizine 5 mg tablet 5 mg PO DAILY 09/17/23 08/0 01/03 Previous Rx's ?Medication ?Instructions ?Recorded amlodipine 5 mg tablet 5 mg PO DAILY #90 tabs 12/18 aspirin 81 mg tablet,delayed 81 mg PO DAILY #90 tabs 0 12/19/23 release (Adult Aspirin Regimen) atorvastatin 40 mg tablet 40 mg PO HS #30 tabs 4 buspirone 15 mg tablet 15 mg PO BID #60 tabs desvenlafaxine succinate 50 mg 50 mg PO DAILY #30 tabs 12/19/23 tablet,extended release 24 hr (Pristiq) metoprolol succinate 100 mg 100 mg PO DAILY Hypertensi on #90 12/19/23 tablet,extended release 24 hr tabs mirtazapine 15 mg tablet (Remeron) 15 mg PO HS #30 tab s 12/19/23 pantoprazole 20 mg tablet,delayed 20 mg PO DAILY #90 t abs 12/19/23 release cefdinir 300 mg capsule 300 mg PO Q12H 10 days #20 c aps 01/10/24 diazepam 5 mg tablet 5 mg PO DAILY PRN only for a cute 01/24/24 and severe anxiety 30 days #25 tabs Allergies Allergy/AdvReac Type Severity Reaction Status Date / Time No Known Allergies Allergy Verified 12/19/23 10:18 [facility] Disclaimer: The information contained in this section may have been updated after the patient was seen, as this information can be updated by other users. Medical History Atypical angina Family history of coronary artery disease Burning chest pain Abnormal ECG Sciatica of left side Spasm of bowel Dental abscess Gastroesophageal reflux disease Anxiety probable panic attacks Hyperlipidemia Hypertensive disorder BP improved today Surgical History No significant past surgical history Family History Other No significant family history Social History Smoking Status: Unknown if ever smoked alcohol intake: never substance use type: denies use current occupational status: employed Travel in the last 8 weeks?: None household members: family housing: house caffeine: No Have you lived/traveled outside US in past 30 days?: No Contact w/someone who lives/traveled outside US past 30 days?: No Exposure to someone with infectious disease in past 14 days?: No Do you have a fever (greater than 100.4 F or 38 C)?: No Have you tested positive for COVID-19?: No Exposed to someone with COVID-19 in past 14 days?: No Do you have a sore throat?: No Do you have a cough?: No Do you have any weakness?: No Do you have any diarrhea?: No Are you experiencing any unusual bleeding?: No Do you have any muscle aches/pain?: No Do you have any abdominal pain?: No Are you experiencing loss of taste or smell?: No Other Medical History Have you received the Flu Vaccine for this season: No Have you received the Pneumonia Vaccine: No ROS Obtained: Yes All systems reviewed & no additional complaints except as documented Physical Exam General General appearance: alert and in no apparent distress Head Head exam: atraumatic Eye Eye exam: Present normal appearance, PERRL and EOMI Neck Neck exam: Present normal inspection and full ROM Chest Chest inspection: Present symmetric chest wall rise Respiratory Respiratory exam: Present normal lung sounds bilaterally; Absent respiratory distress Cardiovascular Cardiovascular exam: Present regular rate and normal rhythm Abdominal Exam Abdominal exam: Present soft; Absent distention Extremities Exam Extremities exam: Present normal inspection Neurological Exam Neurological exam: Present alert and oriented X3 Psychiatric Psychiatric exam: Present normal affect and normal mood Skin Skin exam: Present warm and dry Medical Decision Making Medical Records Medical records reviewed: Yes I reviewed the patient's medical records. Screening: Per USPSTF and CDC recommendations, given the prevalence of disease in our region, it is our hospital?s policy to screen for HIV and viral Hepatitis for all patients aged 18 and over and those with ongoing risk factors. MR Comment: Emergency department visit from 08/26/2024 notable for presentation with brain fog Moustapha Inquiry Pt receiving controlled substance: No Vital Signs: 10/08/24 21:42 10/08/24 21:48 10/08/24 22:00 Temperature 97.7 F Temperature Source Oral Pulse Rate 86 76 Pulse Rate [Left] 98 H Respiratory Rate 19 Blood Pressure 155/101 H 138/90 Blood Pressure [Right Arm] 161/103 H Blood Pressure Mean [Right Arm] 122 02 Sat by Pulse Oximetry 98 99 99 Oxygen Delivery Method Room Air 10/08/24 22:30 Temperature Temperature Source Pulse Rate 71 Pulse Rate [Left] Respiratory Rate 11 L Blood Pressure 129/91 H Blood Pressure [Right Arm] Blood Pressure Mean [Right Arm] 02 Sat by Pulse Oximetry 96 Oxygen Delivery Method Lab Data Lab Results 10/08/24 21:46: WBC 8.5, RBC 4.90, Hgb 15.8, Hct 46.6, MCV 95.1 H, MCH 32.2 H, MCHC 33.9, RDW 12.1, Plt Count 231, MPV 11.0 H, Neut % (Auto) 60.3, Lymph % (Auto) 29.4, [place] % (Auto) 7.3, Eos % (Auto) 2.1, Baso % (Auto) 0.5, Neut # (Auto) 5.1, Lymph # (Auto) 2.5, [place] # (Auto) 0.6, Eos # (Auto) 0.2, Baso # (Auto) 0.0, Sodium 141, Potassium 3.4 L, Chloride 107, Carbon Dioxide 27, Anion Gap 10.4, BUN 16, Creatinine 1.40 H, Estimated Creat Clear 65, Estimated GFR 52 L, Est GFR ( Amer) 63, Glucose 110 H, Calcium 10.0, Total Bilirubin 0.8, AST 54, ALT 44, Alkaline Phosphatase 90, Troponin I < 0.01, Total Protein 8.4 H, Albumin 5.0, Globulin 3.4 H, Albumin/Globulin Ratio 1.5 10/08/24 21:46 10/08/24 21:46 Orders (Tests/Meds): ED MEDICATIONS Generic Name Dose Route Start Last Admin Trade Name Freq PRN Reason Stop Dose Admin Meclizine HCl 25 mg 10/08/24 23:15 Meclizine 25mg Tablet PO 10/08/24 23:16 ONCE ONE ORDERS Category Date Time Status Chest XR 2 view (NOT portable) [XR chest 2V] Stat Exams 10/08/24 21:56 Completed CBC w/Auto Diff [Complete Blood Count Auto Diff] Stat Lab 10/08/24 21:46 Completed CMP [Comprehensive Metabolic Panel] Stat Lab 10/08/24 21:46 Completed Troponin I Q3H Lab 10/09/24 01:00 Ordered Troponin I Q3H Lab 10/09/24 04:00 Ordered Troponin I Stat Lab 10/08/24 21:46 Completed ECG Data Tracing #1: I reviewed this ECG and interpreted as documented below: Normal sinus rhythm at a rate of 94, QTc 389, normal axis, no STEMI Medical Decision Narrative: In summary, this 59-year-old male with a past medical history of anxiety and hypertension presents to the emergency department today with chest pain and hypertension. On initial evaluation patient is hypertensive with a systolic blood pressure in the 160s however asymptomatic, nontoxic-appearing, no active chest pain. Differential diagnosis includes but is not limited to ACS, arrhythmia, asymptomatic markedly elevated blood pressure, hypertensive emergency. Based on these concerns, I ordered CBC, CMP, troponin, EKG, chest x- ray. ECG personally interpreted as noted above. Labs personally reviewed demonstrate nonactionable CBC, baseline renal function, very mild hypokalemia at 3.4, undetectable troponin. XR personally interpreted demonstrates no acute cardiopulmonary pathology. On reassessment patient remains asymptomatic regarding chest pain and hypertension. He was complaining of slight sinus pressure. He requested meclizine and stated that this medicine has helped him in the past. Was administered a dose and ultimately discharged with plan for PCP follow-up. Blood pressure had improved to 130s over 90s. Critical Care Critical Care Time Critical Care Time: No
--- NOTE | 2024-10-08 21:56 | XR_ITS ---
PROCEDURE INFORMATION: Exam: XR Chest Exam date and time: 10/08/2024 9:52 PM Age: 59 years old Clinical indication: Sternal or substernal pain; Additional info: Chest pain TECHNIQUE: Imaging protocol: Radiologic exam of the chest. Views: 2 views. COMPARISON: CR XR CHEST PORTABLE 06/13/2023 12:42 AM FINDINGS: Lungs: Unremarkable. No consolidation. Pleural spaces: Unremarkable. No pleural effusion. No pneumothorax. Heart/Mediastinum: Unremarkable. No cardiomegaly. Bones/joints: Unremarkable. IMPRESSION: No acute findings.
[2024-10-08 22:00] VITALS: BP 138/90; PULSE 76; O2SAT 99
[2024-10-08 22:03] LABS: Basophils % 0.5 % (0.1-2.0); Eosinophils # 0.2 Kmm3 (0.0-0.4); Eosinophils % 2.1 % (0.1-12.0); Hematocrit 46.6 % (42.0-52.0); Hemoglobin 15.8 g/dL (14.1-18.0); Immature Granulocytes # 0.03 10^3uL; Immature Granulocytes % 0.4 %; Lymphocytes # 2.5 K/mm3 (0.7-4.5); Lymphocytes % 29.4 % (10-50); Mean Corpuscular HGB Conc 33.9 g/dL (31.8-35.4); Mean Corpuscular Hemoglobin 32.2 pg (27.0-31.2); Mean Corpuscular Volume 95.1 fl (80-94); Monocytes # 0.6 K/mm3 (0.1-1.0); Monocytes % 7.3 % (1.7-9.3); Neutrophils # 5.1 K/mm3 (1.8-7.8); Neutrophils % 60.3 % (37.0-80.0); Nucleated Red Blood Cells # 0 10^3/uL; Nucleated Red Blood Cells % 0 %; Platelet Count 231 K/mm3 (142-424); Red Cell Distribution Width 12.1 % (11.5-17.5); Red Cell Distribution Width-SD 42.3 fL; White Blood Count 8.5 K/mm3 (4.8-10.8)
[2024-10-08 22:04] LABS: Chloride 107 mmol/L (98-107); Sodium 141 mmol/L (136-145)
[2024-10-08 22:05] LABS: Potassium 3.4 mmoL/L (3.5-5.1)
[2024-10-08 22:07] LABS: Alanine Aminotransferase 44 U/L (12-78); Albumin/Globulin Ratio 1.5 (1.1-1.8); Alkaline Phosphatase 90 U/L (38-126); Anion Gap 10.4 mEq/L (5-15); Aspartate Amino Transferase 54 U/L (17-59); Bilirubin,Total 0.8 mg/dl (0.2-1.3); Blood Urea Nitrogen 16 mg/dl (9-20); Carbon Dioxide 27 mmol/L (22.0-30.0); Creatinine Clearance Estimated 65 mL/min (50-200); Estimated Glomerular Filt Rate 52 ml/min (>60); GFR (African American) 63 ML/MIN (>60); Globulin 3.4 g/dL (1.3-3.2); Total Protein,Serum 8.4 g/dl (6.3-8.2)
[2024-10-08 22:08] LABS: Glucose 110 mg/dl (74-100)
[2024-10-08 22:25] LABS: Troponin I < 0.01 ng/ml (0.00-0.034)
[2024-10-08 22:30] VITALS: BP 129/91; PULSE 71; RESP 11; O2SAT 96
[2024-10-08 23:25] VITALS: BP 136/91; PULSE 68; RESP 16; TEMP 36.8; O2SAT 99
[2024-10-08] MEDS: MECLIZINE 25MG TABLET 25 MG PO (23:27)
== END 2024-10-08 23:28 | disposition home or self-care (01) ==
PROVIDERS: Emergency Provider Student in an Organized Health Care Education/Training Program; PCP Physician Assistant
DX: R07.9 Chest pain, unspecified (principal); I10 Essential (primary) hypertension; E78.5 Hyperlipidemia, unspecified; G47.30 Sleep apnea, unspecified; F41.1 Generalized anxiety disorder
CPT/HCPCS: 71046; 80053; 84484; 85025; 93005; 99284

== ENCOUNTER 2024-10-14 10:43 | Outpatient (CLI) | payer BC, SELFPAY ==
[2024-10-14 10:47] LABS: Anti-Centromere B Antibodies ND; Anti-DNA (DS) Ab Qn ND; Anti-Jo-1 ND; Antichromatin Antibodies ND; Antiscleroderma-70 Antibodies ND; RNP Antibodies ND; Sjogren's Anti-SS-A ND; Sjogren's Anti-SS-B ND
[2024-10-14 11:27] LABS: Erythrocyte Sedimentation Rate 16 mm/hr (0-20)
[2024-10-15 09:16] LABS: Antinuclear Antibodies (ANA) Negative (Negative)
[2024-10-19 10:28] LABS: Lyme B. burgdorferi PCR Blood Negative (Negative)
[2024-10-19 17:18] LABS: AChR Binding Abs <0.07 nmol/L (0.00-0.24)
== END 2024-10-14 23:59 | disposition home or self-care (01) ==
LOC: LAB 10:44
PROVIDERS: PCP Physician Assistant; Visit Provider Specialist
DX: K04.7 Periapical abscess without sinus (principal); H05.829 Myopathy of extraocular muscles, unspecified orbit; I10 Essential (primary) hypertension; R41.89 Other symptoms and signs involving cognitive functions and awareness; R42 Dizziness and giddiness
CPT/HCPCS: 36415; 85651; 86255; 86596; 87476

== ENCOUNTER 2024-10-22 01:40 | Emergency (ER) | payer BC, SELFPAY ==
[2024-10-22 01:40] VITALS: BP 162/64; PULSE 69; RESP 14; TEMP 36.8; O2SAT 99; BMI 25.8
[2024-10-22 02:10] VITALS: BP 129/91; PULSE 70; RESP 14; TEMP 36.8; O2SAT 99
--- NOTE | 2024-10-22 05:31 | ED_ITS ---
Discharge Plan Disposition Patient Disposition: Home, Self-Care Prescriptions Prescriptions: No Action Nurtec ODT 75 mg tablet,disintegrating 75 mg PO Q OTHER DAY PRN (Reason: migraine headache) Qty: 8 2RF amlodipine 5 mg tablet 5 mg PO DAILY Qty: 90 0RF aspirin [Adult Aspirin Regimen] 81 mg tablet,delayed release (DR/EC) 81 mg PO DAILY Qty: 90 0RF buspirone 15 mg tablet 15 mg PO BID Qty: 60 2RF metoprolol succinate 100 mg tablet extended release 24 hr 100 mg PO DAILY Qty: 90 3RF pantoprazole 20 mg tablet,delayed release (DR/EC) 20 mg PO DAILY Qty: 90 3RF diazepam 5 mg tablet 5 mg PO DAILY PRN (Reason: only for acute and severe anxiety) 30 Days Qty: 25 0RF Referrals Follow up/Referrals: Lili Frank PA [Primary Care Provider, Medical] - See instructions Clinical Impressions Clinical Impression: Burning sensation of lower extremity Print Language Print Language: Citizen Of [place] Discharge ED Provider: Jaron Ewing Adult HPI General Chief complaint: PAIN Stated complaint: R leg numbness, dizziness Time Seen by Provider: 10/22/24 01:45 Mode of Arrival: Ambulatory Source of Information: Patient Description of Symptoms (Recalled from ER Triage Doc. 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 Pt reports that he was asleep and woke up with burning and numbness in his L leg. History of Present Illness HPI narrative: 59-year-old male presents for approximately an hour and a half of burning leg pain. He reports no preceding symptoms. It starts in the right mid thigh and extends to the mid lower leg. It is confined to the anterior aspect of the leg. He denies any trauma. Denies any numbness, reports symptoms are worse with sitting down. He has never had any like this happen before. He did not take anything prior to arrival. Denies any other neurologic symptoms. Related Data Previous Rx's ?Medication ?Instructions ?Recorded amlodipine 5 mg tablet 5 mg PO DAILY #90 tabs 12/18 aspirin 81 mg tablet,delayed 81 mg PO DAILY #90 tabs 0 12/19/23 release (Adult Aspirin Regimen) buspirone 15 mg tablet 15 mg PO BID #60 tabs metoprolol succinate 100 mg 100 mg PO DAILY Hypertensi on #90 12/19/23 tablet,extended release 24 hr tabs pantoprazole 20 mg tablet,delayed 20 mg PO DAILY #90 t abs 12/19/23 release diazepam 5 mg tablet 5 mg PO DAILY PRN only for a cute 01/24/24 and severe anxiety 30 days #25 tabs rimegepant 75 mg disintegrating 75 mg PO Q OTHER DAY P RN migraine 10/14/24 tablet (Nurtec ODT) headache #8 tabs Allergies Allergy/AdvReac Type Severity Reaction Status Date / Time No Known Allergies Allergy Verified 10/14/24 08:48 [facility] Disclaimer: The information contained in this section may have been updated after the patient was seen, as this information can be updated by other users. Medical History Atypical angina Family history of coronary artery disease Burning chest pain Abnormal ECG Sciatica of left side Spasm of bowel Dental abscess Gastroesophageal reflux disease Anxiety probable panic attacks Hyperlipidemia Hypertensive disorder BP improved today Surgical History No significant past surgical history Family History (Updated 10/14/24 @ 08:52 by MARIA ESTHER Read) Other Heart attack Social History (Updated 10/14/24 @ 08:52 by MARIA ESTHER Read) Smoking Status: Light tobacco smoker tobacco type: smokeless tobacco alcohol intake: never substance use type: denies use current occupational status: employed Travel in the last 8 weeks?: None household members: family housing: house caffeine: No Other Medical History Have you received the Flu Vaccine for this season: No Have you received the Pneumonia Vaccine: No ROS Obtained: Yes All systems reviewed & no additional complaints except as documented Physical Exam General General appearance: alert and in no apparent distress Head Head exam: atraumatic and normocephalic Eye Eye exam: Present normal appearance, PERRL and EOMI ENT ENT exam: Present normal oropharynx and normal external ear exam Neck Neck exam: Present normal inspection and full ROM Chest Chest inspection: Present normal inspection and symmetric chest wall rise; Absent tenderness Respiratory Respiratory exam: Present normal lung sounds bilaterally; Absent respiratory distress Cardiovascular Cardiovascular exam: Present regular rate and normal rhythm Abdominal Exam Abdominal exam: Present soft; Absent distention, tenderness or guarding Extremities Exam Extremities exam: Present normal inspection; Absent edema or joint swelling Back Exam Back exam: Present normal inspection; Absent tenderness Neurological Exam Neurological exam: Present alert and oriented X3; Absent motor sensory deficit Psychiatric Psychiatric exam: Present normal affect and normal mood Skin Skin exam: Present warm, dry and normal color Lymphatic Lymphatic Findings: no adenopathy Medical Decision Making Medical Records Medical records reviewed: Yes I reviewed the patient's medical records. Screening: Per USPSTF and CDC recommendations, given the prevalence of disease in our region, it is our hospital?s policy to screen for HIV and viral Hepatitis for all patients aged 18 and over and those with ongoing risk factors. Moustapha Inquiry Pt receiving controlled substance: No Moustapha was queried for this patient: No Vital Signs: 10/22/24 01:40 10/22/24 02:10 Temperature 98.2 F 98.2 F Temperature Source Oral Oral Pulse Rate 70 Pulse Rate [Left] 69 Respiratory Rate 14 14 Blood Pressure 129/91 H Blood Pressure [Right Arm] 162/64 H Blood Pressure Mean [Right Arm] 96 Blood Pressure Source Automatic Cuff Blood Pressure Source [Right Arm] Automatic Cuff Blood Pressure Position Sitting Blood Pressure Position [Right Arm] Sitting 02 Sat by Pulse Oximetry 99 Oxygen Delivery Method Room Air Room Air Lab Data Lab results reviewed: Yes I reviewed the patient's lab results. Orders (Tests/Meds): ED MEDICATIONS Discontinued Medications Generic Name Dose Route Start Last Admin Trade Name Freq PRN Reason Stop Dose Admin Lidocaine 1 each 10/22/24 03:20 Lidocaine 5% Transdermal Patch TD 10/22/24 03:21 ONCE ONE Medical Decision Narrative: 59-year-old male presents for about 2 hours of burning sensation in the right anterior leg from the mid thigh to the mid tibia. History was obtained via interactive discussion with patient. On arrival, patient is [afebrile, hemodynamically stable, satting appropriately, alert, oriented x4, GCS 15], moving all extremities spontaneously. Full physical exam performed and significant for no significant physical exam abnormalities. Patient has normal motor and sensory function in the bilateral upper and lower extremities. No cranial nerve abnormalities. Differential includes but is not limited to peripheral neuropathy, sciatica, early shingles without a rash. I had extensive discussion with patient regarding his presentation. Given the brief duration of symptoms and a completely benign physical exam, I am not certain what the underlying etiology is. It certainly does not appear consistent with stroke or other serious pathology. The anterior nature would not be consistent with classic sciatica. I considered obtaining labs and imaging but I do not think would be clinically relevant at this time. I recommended patient continue to monitor symptoms, use lidocaine patches as needed and follow-up with his PCP or return to the ER if symptoms continue to worsen. Procedures Risk/Benefits of Procedure(s) Were Explained: Yes Critical Care Critical Care Time Critical Care Time: No
--- OUTSIDE RECORDS SUMMARY | 2024-10-22 07:36 | XMS_ITS | Clinical Summary ---
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 Phone ZacLili Rodolfo GOMEZ Primary Care Provider [phone] Allergies No known active allergies Medications No known medications Social History Tobacco Use Types Packs/Day Years Used Date Smoking Tobacco: Never Smokeless Tobacco: Current Snuff Tobacco Cessation:Ready to Q uit: Not Asked; Counseling Given: Not Answered Interpersonal Safety Answer Date Record ed Family or friends hurt you Not on file 09/13 Family or friends insult you Not on file 08/2023 Family or friends threaten you Not on file 0 09/14/2023 Family or friends scream or curse at you Not on file 09/14/2023 Food Insecurity Answer Date Recorded Food run out past 12 months Not on file 08/2023 Food did not last past 12 months Not on file 09/14/2023 Employment Answer Date Recorded Help finding and keeping a job Not on file 0 09/14/2023 Family and Community Support Answer Efra e Recorded Help with Day to Day Activities Not on file 09/14/2023 Feeling Lonely or Isolated Not on file 09/13 Educational Attainment Answer Date Colby rded Speak language other than French at home Not on file 09/14/2023 Want help with school or training Not on file 09/14/2023 Depression Answer Date Recorded PHQ-2 Risk Not on file 09/14/2023 Disabilities Answer Date Recorded Difficulty concentrating Not on file 024 Difficulty doing errands alone Not on file 0 09/14/2023 Substance Use Answer Date Recorded Used prescription meds for non-medical reasons N ot on file 09/14/2023 Used illegal drugs past 12 months Not on file 09/14/2023 Sex and Gender Information Value Date Recorded Sex Assigned at Not on file Legal Sex Male 6:14 PM CDT Gender Identity Not on file Sexual Orientation Not on file Last Filed Vital Signs Vital Sign Reading Time Taken Comments Blood Pressure 144/78 09/14/2023 2:23 PM EDT Pulse 82 09/14/2023 2:23 PM EDT Temperature 36.8 C (98.3 F) 09/14/2023 10:52 AM EDT Respiratory Rate 20 09/14/2023 2:23 PM EDT Oxygen Saturation 99% 09/14/2023 2:23 PM EDT Inhaled Oxygen Concentration - - Weight 82.6 kg (182 lb) 09/14/2023 10:52 AM EDT Height 177.8 cm (5' 10 ) 09/14/2023 10:52 AM EDT Body Mass Index 26.11 09/14/2023 10:52 AM EDT Plan of Treatment Health Maintenance Due Date Last Done Comments CT Colonography 1964 Colonoscopy 1964 Colorectal Cancer Screening 1964 FOBT/FIT 1964 Fit-DNA (Cologuard) 1964 Sigmoidoscopy 1964 Depression Screening (12+) 1976 HIV Screening 1979 Hepatitis C Screening 1982 Lipid Panel 1999 Pneumococcal 50+ years (1 of 1 - PCV) 2014 Shingles Vaccine (Zoster) (1 of 2) 2014 DTAP/TDAP/TD VACCINES (2 - Td or Tdap) 01/31/2020 COVID-19 VACCINE (2 - season) 01/12/202410/2020 Tobacco Cessation Counseling and Screening (12+) 09/1309/14/2023 Influenza Vaccine (Season Ended) 2025 Insurance BLUE CROSS/BLUE SHIELD Care Teams 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
--- OUTSIDE RECORDS SUMMARY | 2024-10-22 07:36 | XMS_ITS | Data Portability ---
Author Organization [employer] Address [address] [place] [address] Assessment No assessment recorded. Plan of Treatment Reminders Order Date Submit Date Provider Last Modified By Organization Details Last Modified Time Details Appointments None recorded. Lab cobalamin and folate panel, serum 2024 [facility]25 [facility] [address] [place], [address], 5 12:30:18 iron + total iron-bindin g capacity (TIBC), serum 2024 025 PALLAVI [facility]), [address] [place], [address], 5 12:30:17 PSA, total, serum or plasma 2024 025 [facility] [address] [place], [address], 5 13:07:43 lipid panel, serum 2024 025 [facility] [address] [place], [address], 5 13:07:41 CMP, serum or plasma 2024 025 [facility] [address] [place], [address], 5 13:07:41 CBC w/ auto diff 2024 025 [facility] [address] [place], [address], 5 13:07:40 vitamin D, 25-hydroxy, total, serum 2024 025 [facility] [address] [place], [address], 5 13:07:43 TSH, ultra-sensi tive, serum 2024 025 [facility] [address] [place], [address], 5 13:07:42 HIV 1 + 2, meaningful use set 2024 025 [facility] [address] [place], [address], 5 13:07:43 Hepatitis C IgG Ab, qual, serum 2024 025 [facility] [address] [place], [address], 5 13:07:42 magnesium, serum or plasma 2024 025 [facility] [address] [place], [address], 5 13:07:44 unlisted lab - toxassure flex 19, [id number] 2023 024 [facility] [address] [place], [address], 4 01:07:26 Referral neurologist referral 2024 025 [email or web address] Not available 5 13:02:46 Procedures None recorded. Surgeries None recorded. Imaging MRI, brain, w/o contrast 2024 025 [email or web address] [facility] Centralized Scheduling, [address], [place], [address], 5 14:35:33 home sleep study 2024 025 [facility], [address] [facility], [facility], [place], [address], 5 09:37:52 Medication Orders meclizine 25 mg tablet 2024 025 [facility], [address] [place] [address], [address], 5 10:59:26 Valium 5 mg tablet 2024 025 [facility], [address] [place] [address], [address], 5 10:59:28 cephalexin 500 mg tablet [address] [facility] [address] [facility], [address] [place] [address], [address], 5 11:02:28 Valium 5 mg tablet 2024 025 [facility], [address] [place], [address], 5 11:58:55 Xyzal 5 mg tablet [address] [facility], [address] [place], [address], 5 16:09:45 omega 3 360 mg-dha 108 mg-epa 180 mg-fish oil 1,200 mg capsule 2024 025 [facility], [address] [place], [address], 5 11:50:07 Valium 5 mg tablet 2024 025 [facility] [address], [address] [place] [address], [address], 5 12:12:48 buspirone 15 mg tablet 2024 025 [facility] [address], [address] [place] [address], [address], 5 12:12:48 amoxicillin 875 mg-potassiu m clavulanate 125 mg tablet 2024 025 [facility] [address], [address] [place] [address], [address], 5 11:28:59 prednisone 20 mg tablet 2024 025 [facility] [address], [address] [place] [address], [address], 5 11:29:02 Augmentin 875 mg-125 mg tablet [address], [address] [place] [address], [address], 5 11:21:20 Valium 5 mg tablet 2023 024 [facility] [address], [address] [place] [address], [address], 4 11:47:22 Carafate 1 gram tablet 2023 025 [facility] [address], [address] [place] [address], [address], 5 11:46:06 Patient TargetsNo targets recorded. Patient Instructions Encounter Date Encounter Id Patient Instructions Last Modified By Organization Details Last Modified Time 03/13/2024 [id number] abscessed tooth: care instructions [email or web address] Not available 03/13/2024 11:47:16 05/25/2024 [id number] Acute Sinusitis: Care Instructions Not available 05/25/2024 12:12:42 08/13/2024 [id number] chronic sinusitis: care instructions [email or web address] Not available 08/13/2024 10:59:21 Reason for Referral Neurologist Referral for Poo r short-term memory Referring Physician: Lili Frank [facility], Encounter Date: 07/09/2024 Results Created Date Observation Date Name Description Value Unit Range Abnormal Flag Note LastModifiedBy Organization Detail LastModifiedTime 03/13/20 24 03/19/2024 TOXAS SURE FLEX 19, UR summary report FINAL ===== ===== ===== ===== ===== ===== ===== ===== ===== ===== ===== ===== ===== === ToxAs sure Flex 19, Ur ===== ===== ===== ===== ===== ===== ===== ===== ===== ===== ===== ===== ===== === Test Resul t Flag Units Drug Prese nt Oxaze jaun 86 ng/mg creat Temaz epam 26 ng/mg creat Oxaze jaun and temaz epam are expec james metab olite s of diaze jaun. Oxaze jaun is also an expec james metab olite of other benzo diaze pine drugs , inclu ding chlor diaze poxid e, praze jaun, clora zepat e, halaz epam, and temaz epam. Oxaze jaun and temaz epam are avail able as sched uled presc ripti on medic ation s. ===== ===== ===== ===== ===== ===== ===== ===== ===== ===== ===== ===== ===== === Test Resul t Flag Units Ref Range Creat inine 117 mg/dL >=20 ===== ===== ===== ===== ===== ===== ===== ===== ===== ===== ===== ===== ===== === Decla red Medic ation s: Medic ation list was not provi ded. ===== ===== ===== ===== ===== ===== ===== ===== ===== ===== ===== ===== ===== === For clini jacobo consu ltati on, pleas e call . ===== ===== ===== ===== ===== ===== ===== ===== ===== ===== ===== ===== ===== === Not Available [facility] ([facility]) [address] [place], [address], 03/19/2024 01:07:26 03/13/2003/19/2024 TOXAS SURE FLEX 19, UR pdf . Not Available [facility] ([facility]) [address] [place], [address], 03/19/2024 01:07:26 03/13/20 24 03/19/2024 TOXAS SURE FLEX 19, UR creatinine 117 mg/dL REFER ENCE RANGE : Ref Range >=20 Not Available [facility] ([facility]) [address] [place], [address], 03/19/2024 01:07:26 03/13/2003/19/2024 TOXAS SURE FLEX 19, UR amphetamines ia NEGATI VE NG/mL cutoff :300 Not Available [facility] ([facility]) [address] [place], [address], 03/19/2024 01:07:26 03/13/20 24 03/19/2024 TOXAS SURE FLEX 19, UR benzodiazepi yanet +POSIT BRANDON+ Not Available [facility] ([facility]) [address] [facility], [place], [address], 03/19/2024 01:07:26 03/13/20 24 03/19/2024 TOXAS SURE FLEX 19, UR diazepam NOT DETECT ED NG/mg _crea t Not Available [facility] ([facility]) [address] [facility], [place], [address], 03/19/2024 01:07:26 03/13/20 24 03/19/2024 TOXAS SURE FLEX 19, UR desmethyldia zepam NOT DETECT ED NG/mg _crea t Not Available [facility] ([facility]) [address] [facility], [place], [address], 03/19/2024 01:07:26 03/13/20 24 03/19/2024 TOXAS SURE FLEX 19, UR oxazepam 86 NG/mg _crea t Not Available [facility] ([facility]) [address] [facility], [place], [address], 03/19/2024 01:07:26 03/13/20 24 03/19/2024 TOXAS SURE FLEX 19, UR temazepam 26 NG/mg _crea t Expec james metab olism of benzo diaze pine class drugs : Paren t Drug Detec james Metab olite s ----- ----- - ----- ----- ----- ----- Diaze jaun: Desme thyld iazep am, Temaz epam, Oxaze jaun Chlor diaze poxid e: Desme thyld iazep am, Oxaze jaun Clora zepat e: Desme thyld iazep am, Oxaze jaun Halaz epam: Desme thyld iazep am, Oxaze jaun Temaz epam: Oxaze jaun Oxaze jaun: None Not Available [facility] ([facility]) [address] [facility], [place], [address], 03/19/2024 01:07:26 03/13/20 24 03/19/2024 TOXAS SURE FLEX 19, UR alprazolam NOT DETECT ED NG/mg _crea t Not Available [facility] ([facility]) [address] [place], [address], 03/19/2024 01:07:26 03/13/20 24 03/19/2024 TOXAS SURE FLEX 19, UR alpha-hydrox yalprazolam NOT DETECT ED NG/mg _crea t Not Available [facility] ([facility]) [address] [place], [address], 03/19/2024 01:07:26 03/13/20 24 03/19/2024 TOXAS SURE FLEX 19, UR desalkylflur azepam NOT DETECT ED NG/mg _crea t Not Available [facility] ([facility]) [address] [place], [address], 03/19/2024 01:07:26 03/13/20 24 03/19/2024 TOXAS SURE FLEX 19, UR lorazepam NOT DETECT ED NG/mg _crea t Not Available [facility] ([facility]) [address] [place], [address], 03/19/2024 01:07:26 03/13/20 24 03/19/2024 TOXAS SURE FLEX 19, UR alpha-hydrox ytriazolam NOT DETECT ED NG/mg _crea t Not Available [facility] ([facility]) [address] [place], [address], 03/19/2024 01:07:26 03/13/2003/19/2024 TOXAS SURE FLEX 19, UR clonazepam NOT DETECT ED NG/mg _crea t Not Available [facility] ([facility]) [address] [place] [address], [address], 03/19/2024 01:07:26 03/13/2003/19/2024 TOXAS SURE FLEX 19, UR 7-aminoclona zepam NOT DETECT ED NG/mg _crea t Not Available [facility] ([facility]) [address] [place] [address], [address], 03/19/2024 01:07:26 03/13/20 24 03/19/2024 TOXAS SURE FLEX 19, UR midazolam NOT DETECT ED NG/mg _crea t Not Available [facility] ([facility]) [address] [place], [address], 03/19/2024 01:07:26 03/13/20 24 03/19/2024 TOXAS SURE FLEX 19, UR alpha-hydrox ymidazolam NOT DETECT ED NG/mg _crea t Not Available [facility] ([facility]) [address] [place] [address], [address], 03/19/2024 01:07:26 03/13/20 24 03/19/2024 TOXAS SURE FLEX 19, UR flunitrazepa m NOT DETECT ED NG/mg _crea t Not Available [facility] ([facility]) [address] [place], [address], 03/19/2024 01:07:26 03/13/20 24 03/19/2024 TOXAS SURE FLEX 19, UR desmethylflu nitrazepam NOT DETECT ED NG/mg _crea t Not Available [facility] ([facility]) [address] [place] [address], [address], 03/19/2024 01:07:26 03/13/20 24 03/19/2024 TOXAS SURE FLEX 19, UR cocaine metabolite ia NEGATI VE NG/mL cutoff :150 Not Available [facility] ([facility]) [address] [place] [address], [address], 03/19/2024 01:07:26 03/13/20 24 03/19/2024 TOXAS SURE FLEX 19, UR ethanol biomarkers ia NEGATI VE NG/mL cutoff :500 Not Available [facility] ([facility]) [address] [place], [address], 03/19/2024 01:07:26 03/13/20 24 03/19/2024 TOXAS SURE FLEX 19, UR cannabinoids ia NEGATI VE NG/mL cutoff :20 Not Available [facility] ([facility]) [address] [place], [address], 03/19/2024 01:07:26 03/13/20 24 03/19/2024 TOXAS SURE FLEX 19, UR 6-acetylmorp zoraida ia NEGATI VE NG/mL cutoff :10 Not Available [facility] ([facility]) [address] [place], [address], 03/19/2024 01:07:26 03/13/20 24 03/19/2024 TOXAS SURE FLEX 19, UR opiate class ia NEGATI VE NG/mL cutoff :100 Not Available [facility] ([facility]) [address] [place], [address], 03/19/2024 01:07:26 03/13/20 24 03/19/2024 TOXAS SURE FLEX 19, UR oxycodone class ia NEGATI VE NG/mL cutoff :100 Not Available [facility] ([facility]) [address] [place], [address], 03/19/2024 01:07:26 03/13/20 24 03/19/2024 TOXAS SURE FLEX 19, UR methadone ia NEGATI VE NG/mL cutoff :100 Not Available [facility] ([facility]) [facility] [place], [address], 03/19/2024 01:07:26 03/13/20 24 03/19/2024 TOXAS SURE FLEX 19, UR methadone mtb ia NEGATI VE NG/mL cutoff :100 Not Available [facility] ([facility]) [address] [place], [address], 03/19/2024 01:07:26 03/13/20 24 03/19/2024 TOXAS SURE FLEX 19, UR buprenorphin e ia NEGATI VE NG/mL cutoff :5.0 Not Available [facility] ([facility]) [address] [place], [address], 03/19/2024 01:07:26 03/13/20 24 03/19/2024 TOXAS SURE FLEX 19, UR fentanyl ia NEGATI VE NG/mL cutoff :2.0 Not Available [facility] ([facility]) [address] [place], [address], 03/19/2024 01:07:26 03/13/20 24 03/19/2024 TOXAS SURE FLEX 19, UR tapentadol ia NEGATI VE NG/mL cutoff :200 Not Available [facility] ([facility]) [address] [place], [address], 03/19/2024 01:07:26 03/13/20 24 03/19/2024 TOXAS SURE FLEX 19, UR propoxyphene ia NEGATI VE NG/mL cutoff :300 Not Available [facility] ([facility]) [address] [place], [address], 03/19/2024 01:07:26 03/13/20 24 03/19/2024 TOXAS SURE FLEX 19, UR tramadol ia NEGATI VE NG/mL cutoff :200 Not Available [facility] ([facility]) [address] [place], [address], 03/19/2024 01:07:26 03/13/20 24 03/19/2024 TOXAS SURE FLEX 19, UR methylphenid ate ia NEGATI VE NG/mL cutoff :100 Not Available [facility] ([facility]) [address] [place], [address], 03/19/2024 01:07:26 03/13/20 24 03/19/2024 TOXAS SURE FLEX 19, UR barbiturates ia NEGATI VE NG/mL cutoff :200 Not Available [facility] ([facility]) [address] [place], [address], 03/19/2024 01:07:26 03/13/20 24 03/19/2024 TOXAS SURE FLEX 19, UR phencyclidin e ia NEGATI VE NG/mL cutoff :25 Not Available [facility] ([facility]) [address] [place], [address], 03/19/2024 01:07:26 03/13/20 24 03/19/2024 TOXAS SURE FLEX 19, UR gabapentin ia NEGATI VE ug/mL cutoff :1.0 Not Available [facility] ([facility]) [address] [place], [address], 03/19/2024 01:07:26 03/13/20 24 03/19/2024 TOXAS SURE FLEX 19, UR anticonvulsa nts NEGATI VE Not Available [facility] ([facility]) [address] [place], [address], 03/19/2024 01:07:26 03/13/20 24 03/19/2024 TOXAS SURE FLEX 19, UR pregabalin NOT DETECT ED Not Available [facility] ([facility]) [address] [place], [address], 03/19/2024 01:07:26 03/13/20 24 03/19/2024 TOXAS SURE FLEX 19, UR carisoprodol ia NEGATI VE NG/mL cutoff :100 Not Available [facility] ([facility]) [address] [place], [address], 03/19/2024 01:07:26 05/25/19 25 05/26/2024 CBC WITH DIFFE RENTI AL/PL ATELE T WBC 5.9 x10e3 /uL 3.4-10 .8 normal Not Available [facility] ([facility]) [address] [facility], [place], [address], 05/26/2024 13:07:40 05/25/1905/26/2024 CBC WITH DIFFE RENTI AL/PL ATELE T RBC 5.06 x10e6 /uL 4.14-5 .80 normal Not Available [facility] ([facility]) [address] [facility], [place], [address], 05/26/2024 13:07:40 05/25/19 25 05/26/2024 CBC WITH DIFFE RENTI AL/PL ATELE T hemoglobin 16.3 g/dL 13.0-1 7.7 normal Not Available [facility] ([facility]) [address] [facility], [place], [address], 05/26/2024 13:07:40 05/25/19 25 05/26/2024 CBC WITH DIFFE RENTI AL/PL ATELE T hematocrit 49.2 % 37.5-5 1.0 normal Not Available [facility] ([facility]) [address] [place], [address], 05/26/2024 13:07:40 05/25/19 25 05/26/2024 CBC WITH DIFFE RENTI AL/PL ATELE T MCV 97 fL 79-97 normal Not Available [facility] ([facility]) [address] [place], [address], 05/26/2024 13:07:40 05/25/1905/26/2024 CBC WITH DIFFE RENTI AL/PL ATELE T MCH 32.2 pg 26.6-3 3.0 normal Not Available [facility] ([facility]) [address] [place], [address], 05/26/2024 13:07:40 05/25/19 25 05/26/2024 CBC WITH DIFFE RENTI AL/PL ATELE T MCHC 33.1 g/dL 31.5-3 5.7 normal Not Available [facility] ([facility]) [address] [facility], [place], [address], 05/26/2024 13:07:40 05/25/19 25 05/26/2024 CBC WITH DIFFE RENTI AL/PL ATELE T RDW 11.7 % 11.6-1 5.4 Not Available [facility] ([facility]) [address] [facility], [place], [address], 05/26/2024 13:07:40 05/25/19 25 05/26/2024 CBC WITH DIFFE RENTI AL/PL ATELE T platelets 235 x10e3 /uL 150-45 0 normal Not Available [facility] ([facility]) [address] [facility], [place], [address], 05/26/2024 13:07:40 05/25/19 25 05/26/2024 CBC WITH DIFFE RENTI AL/PL ATELE T neutrophils 64 % not estab. normal Not Available [facility] ([facility]) [address] [facility], [place], [address], 05/26/2024 13:07:40 05/25/19 25 05/26/2024 CBC WITH DIFFE RENTI AL/PL ATELE T lymphs 24 % not estab. normal Not Available [facility] ([facility]) [address] [facility], [place], [address], 05/26/2024 13:07:40 05/25/19 25 05/26/2024 CBC WITH DIFFE RENTI AL/PL ATELE T monocytes 8 % not estab. normal Not Available [facility] ([facility]) [address] [facility], [place], [address], 05/26/2024 13:07:40 05/25/19 25 05/26/2024 CBC WITH DIFFE RENTI AL/PL ATELE T eos 3 % not estab. normal Not Available [facility] ([facility]) [address] [facility], [place], [address], 05/26/2024 13:07:40 05/25/19 25 05/26/2024 CBC WITH DIFFE RENTI AL/PL ATELE T basos 1 % not estab. normal Not Available [facility] ([facility]) [address] [facility], [place], [address], 05/26/2024 13:07:40 05/25/19 25 05/26/2024 CBC WITH DIFFE RENTI AL/PL ATELE T immature cells [employer] Not Available [facility] ([facility]) [address] [place], [address], 05/26/2024 13:07:40 05/25/19 25 05/26/2024 CBC WITH DIFFE RENTI AL/PL ATELE T neutrophils (absolute) 3.8 x10e3 /uL 1.4-7. 0 normal Not Available [facility] ([facility]) [address] [place], [address], 05/26/2024 13:07:40 05/25/19 25 05/26/2024 CBC WITH DIFFE RENTI AL/PL ATELE T lymphs (absolute) 1.4 x10e3 /uL 0.7-3. 1 normal Not Available [facility] ([facility]) [address] [place], [address], 05/26/2024 13:07:40 05/25/1905/26/2024 CBC WITH DIFFE RENTI AL/PL ATELE T monocytes(ab solute) 0.5 x10e3 /uL 0.1-0. 9 normal Not Available [facility] ([facility]) [address] [place], [address], 05/26/2024 13:07:40 05/25/19 25 05/26/2024 CBC WITH DIFFE RENTI AL/PL ATELE T eos (absolute) 0.2 x10e3 /uL 0.0-0. 4 normal Not Available [facility] ([facility]) [address] [facility], [place], [address], 05/26/2024 13:07:40 05/25/19 25 05/26/2024 CBC WITH DIFFE RENTI AL/PL ATELE T baso (absolute) 0.0 x10e3 /uL 0.0-0. 2 normal Not Available [facility] ([facility]) [address] [facility], [place], [address], 05/26/2024 13:07:40 05/25/19 25 05/26/2024 CBC WITH DIFFE RENTI AL/PL ATELE T immature granulocytes 0 % not estab. Not Available [facility] ([facility]) [address] [facility], [place], [address], 05/26/2024 13:07:40 05/25/19 25 05/26/2024 CBC WITH DIFFE RENTI AL/PL ATELE T immature grans (abs) 0.0 x10e3 /uL 0.0-0. 1 Not Available [facility] ([facility]) [address] [facility], [place], [address], 05/26/2024 13:07:40 05/25/19 25 05/26/2024 CBC WITH DIFFE RENTI AL/PL ATELE T NRBC [employer] Not Available [facility] ([facility]) [address] [facility], [place], [address], 05/26/2024 13:07:40 05/25/19 25 05/26/2024 CBC WITH DIFFE RENTI AL/PL ATELE T hematology comments: [employer] DES[employer] Not Available [facility] ([facility]) [address] [facility], [place], [address], 05/26/2024 13:07:40 05/25/19 25 05/26/2024 COMP. METAB OLIC PANEL (14) glucose 92 mg/dL 70-99 normal Not Available [facility] ([facility]) [address] [facility], [place], [address], 05/26/2024 13:07:41 05/25/19 25 05/26/2024 COMP. METAB OLIC PANEL (14) BUN 10 mg/dL 6-24 normal Not Available [facility] ([facility]) [address] [facility], [place], [address], 05/26/2024 13:07:41 05/25/19 25 05/26/2024 COMP. METAB OLIC PANEL (14) creatinine 1.10 mg/dL 0.76-1 .27 normal Not Available [facility] ([facility]) [address] [facility], [place], [address], 05/26/2024 13:07:41 05/25/19 25 05/26/2024 COMP. METAB OLIC PANEL (14) eGFR 77 mL/mi n/1.7 3 >59 normal Not Available [facility] ([facility]) [address] [facility], [place], [address], 05/26/2024 13:07:41 05/25/19 25 05/26/2024 COMP. METAB OLIC PANEL (14) BUN/creatini ne ratio 9 9-20 normal Not Available [facility] ([facility]) [address] [facility], [place], [address], 05/26/2024 13:07:41 05/25/19 25 05/26/2024 COMP. METAB OLIC PANEL (14) sodium 143 mmol/ L 134-14 4 normal Not Available [facility] ([facility]) [address] [facility] [place], [address], 05/26/2024 13:07:41 05/25/19 25 05/26/2024 COMP. METAB OLIC PANEL (14) potassium 4.6 mmol/ L 3.5-5. 2 normal Not Available [facility] ([facility]) [address] [facility] [place], [address], 05/26/2024 13:07:41 05/25/19 25 05/26/2024 COMP. METAB OLIC PANEL (14) chloride 107 mmol/ L 96-106 above high normal Not Available [facility] ([facility]) [address] [facility] [place], [address], 05/26/2024 13:07:41 05/25/19 25 05/26/2024 COMP. METAB OLIC PANEL (14) carbon dioxide, total 20 mmol/ L 20-29 normal Not Available [facility] ([facility]) [address] [facility] [place], [address], 05/26/2024 13:07:41 05/25/19 25 05/26/2024 COMP. METAB OLIC PANEL (14) calcium 10.5 mg/dL 8.7-10 .2 above high normal Not Available [facility] ([facility]) [address] [facility] [place], [address], 05/26/2024 13:07:41 05/25/19 25 05/26/2024 COMP. METAB OLIC PANEL (14) protein, total 7.3 g/dL 6.0-8. 5 normal Not Available [facility] ([facility]) [address] [place], [address], 05/26/2024 13:07:41 05/25/19 25 05/26/2024 COMP. METAB OLIC PANEL (14) albumin 4.8 g/dL 3.8-4. 9 normal Not Available [facility] ([facility]) [address] [place], [address], 05/26/2024 13:07:41 05/25/19 25 05/26/2024 COMP. METAB OLIC PANEL (14) globulin, total 2.5 g/dL 1.5-4. 5 Not Available [facility] ([facility]) [address] [facility] [place], [address], 05/26/2024 13:07:41 05/25/19 25 05/26/2024 COMP. METAB OLIC PANEL (14) bilirubin, total 0.3 mg/dL 0.0-1. 2 normal Not Available [facility] ([facility]) [address] [facility] [place], [address], 05/26/2024 13:07:41 05/25/19 25 05/26/2024 COMP. METAB OLIC PANEL (14) alkaline phosphatase 84 IU/L 44-121 normal Not Available [facility] ([facility]) [address] [facility] [place], [address], 05/26/2024 13:07:41 05/25/19 25 05/26/2024 COMP. METAB OLIC PANEL (14) AST (SGOT) 38 IU/L 0-40 normal Not Available [facility] ([facility]) [address] [facility] [place], [address], 05/26/2024 13:07:41 05/25/19 25 05/26/2024 COMP. METAB OLIC PANEL (14) ALT (SGPT) 39 IU/L 0-44 normal Not Available [facility] ([facility]) [address] [facility], [address], 05/26/2024 13:07:41 05/25/19 25 05/26/2024 LIPID PANEL cholesterol, total 234 mg/dL 100-19 9 above high normal Not Available [facility] ([facility]) [address] [facility] [place], [address], 05/26/2024 13:07:41 05/25/19 25 05/26/2024 LIPID PANEL triglyceride s 124 mg/dL 0-149 normal Not Available [facility] ([facility]) [address] [facility] [place], [address], 05/26/2024 13:07:41 05/25/19 25 05/26/2024 LIPID PANEL HDL cholesterol 43 mg/dL >39 normal Not Available [facility] ([facility]) [address] [facility] [place], [address], 05/26/2024 13:07:41 05/25/19 25 05/26/2024 LIPID PANEL VLDL cholesterol jacobo 22 mg/dL 5-40 Not Available [facility] ([facility]) [address] [facility] [place], [address], 05/26/2024 13:07:41 05/25/19 25 05/26/2024 LIPID PANEL LDL chol calc ([facility]) 169 mg/dL 0-99 above high normal Not Available [facility] ([facility]) [address] [facility], [place], [address], 05/26/2024 13:07:41 05/25/19 25 05/26/2024 LIPID PANEL 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 Not Available [facility] ([facility]) [address] [facility], [place], [address], 05/26/2024 13:07:41 05/25/19 25 05/26/2024 HCV ANTIB STEFAN CASCA DE(PC R/GEN O) HCV Ab NON REACTI VE non reacti ve Not Available [facility] ([facility]) [address] [facility], [place], [address], 05/26/2024 13:07:42 05/25/19 25 05/26/2024 HCV ANTIB STEFAN CASCA DE(PC R/GEN O) interpretati on: COMMEN T Not infec james with HCV unles s early or acute infec tion is suspe cted (whic h may be delay ed in an immun ocomp romis ed indiv idual ), or other evide nce exist s to indic ate HCV infec tion. Not Available [facility] ([facility]) [address] [place], [address], 05/26/2024 13:07:42 05/25/19 25 05/26/2024 TSH TSH 1.830 uIU/m L 0.450- 4.500 normal Not Available [facility] ([facility]) [address] [facility] [place], [address], 05/26/2024 13:07:42 05/25/19 25 05/26/2024 VITAM IN D, 25-HY DROXY vitamin D, 25-hydroxy 13.6 NG/mL 30.0-1 00.0 below low normal Vitam in D defic iency has been defin ed by the Insti tute of Medic ine and an Endoc rine Socie ty pract ice guide line as a level of serum 25-OH vitam in D less than 20 ng/mL (1,2) . The Endoc rine Socie ty went on to [facility] er defin e vitam in D insuf ficie ncy as a level betwe en 21 and 29 ng/mL (2). 1. IOM (Inst itute of Medic ine). 2010. Dieta ry refer ence intak es for calci um and D. Azucena bingham [place]: [facility] . 2. Hiral dailey [place], Taiwo crawford [place], Marcelina off-F errar i DODGE, et al. Evalu ation , treat ment, and preve ntion of vitam in D defic iency : an Endoc rine Socie ty clini jacobo pract ice guide line. JCEM. 2010; 96(7) :1911 -30. Not Available [facility] ([facility]) [address] [facility], [place], [address], 05/26/2024 13:07:43 05/25/19 25 05/26/2024 HIV AB/P2 4 AG WITH REFLE X HIV Ab/P24 Ag screen NON REACTI VE non reacti ve HIV Negat brandon HIV-1 /HIV- 2 antib odies and HIV-1 p24 antig en were NOT detec james. There is no labor atory evide nce of HIV infec tion. Not Available [facility] ([facility]) [address] [facility] [place], [address], 05/26/2024 13:07:43 05/25/19 25 05/26/2024 PROST ATE SPECI FIC AG, SERUM prostate specific Ag 0.9 NG/mL 0.0-4. 0 normal Zo ECLIA metho dolog y. Accor ding to the Ameri can Urolo gical Assoc iatio n, Serum PSA shoul d decre ase and remai n at undet ectab le level s after radic al prost atect yu. The AUA defin es bioch emica l recur rence as an initi al PSA value 0.2 ng/mL or great er follo wed by a subse quent confi rmato ry PSA value 0.2 ng/mL or great er. Value s obtai angel with diffe rent assay metho ds or kits canno t be used inter larsen eably . Resul ts canno t be inter prete d as absol skye evide nce of the prese nce or absen ce of senthil hernadez se. Not Available [facility] ([facility]) [address] [place], [address], 05/26/2024 13:07:43 05/25/19 25 05/26/2024 MAGNE SIUM magnesium 2.3 mg/dL 1.6-2. 3 normal Not Available [facility] ([facility]) [address] [place], [address], 05/26/2024 13:07:44 06/15/19 25 06/16/2024 IRON AND TIBC iron bind.cap.(TI BC) 324 ug/dL 250-45 0 normal Not Available [facility] ([facility]) [address] [place], [address], 06/16/2024 12:30:17 06/15/19 25 06/16/2024 IRON AND TIBC UIBC 236 ug/dL 111-34 3 normal Not Available [facility] ([facility]) [address] [place], [address], 06/16/2024 12:30:17 06/15/19 25 06/16/2024 IRON AND TIBC iron 88 ug/dL 38-169 normal Not Available [facility] ([facility]) [address] [facility] [place], [address], 06/16/2024 12:30:17 06/15/19 25 06/16/2024 IRON AND TIBC iron saturation 27 % 15-55 normal Not Available [facility] ([facility]) [address] [facility] [place], [address], 06/16/2024 12:30:17 06/15/19 25 06/16/2024 VITAM IN B12 AND FOLAT E vitamin B12 351 pg/mL 232-12 45 normal Not Available [facility] ([facility]) [address] [facility] [place], [address], 06/16/2024 12:30:18 06/15/1906/16/2024 VITAM IN B12 AND FOLAT E folate (folic acid), serum 9.4 NG/mL >3.0 normal A serum folat e delfina ntrat ion of less than 3.1 ng/mL is consi dered to repre sent clini jacobo defic iency . Not Available [facility] ([facility]) [address] [facility] [place], [address], 06/16/2024 12:30:18 06/15/1906/15/2024 CA+PT H INTAC T intact PTH Commen t Inter preta tion Intac t PTH Calci um (pg/m L) (mg/d L) Erika l 15 - 65 8.6 - 10.2 Prima ry Hyper parat hyroi dism >65 >10.2 Secon jasmina Hyper parat hyroi dism >65 <10.2 Non-P oumar yroid Hyper calce dot <65 >10.2 Hypop oumar yroid ism <15 < 8.6 Non-P oumar yroid Hypoc alcem ia 15 - 65 < 8.6 Not Available [facility] ([facility]) [address] [facility] [place], [address], 06/16/2024 17:07:09 06/15/19 25 06/16/2024 CA+PT H INTAC T calcium COMMEN T mg/dL Pleas e refer to the [facility] spec[facility] men for addit ional lab resul ts. SEE 84-1 Not Available [facility] ([facility]) [address] [facility] [place], [address], 06/16/2024 17:07:09 06/15/19 25 06/16/2024 CA+PT H INTAC T PTH, intact 33 pg/mL 15-65 normal Not Available [facility] ([facility]) [address] [facility] [place], [address], 06/16/2024 17:07:09 06/15/19 25 06/16/2024 SPECI MEN STATU S REPOR T specimen status report COMMEN T Pleas e refer to the [facility]i [facility] for addit ional lab resul ts. TEST: [id number] Calci um Panel : [id number] 1 SEE 84-1 Not Available [facility] ([facility]) [address] [facility] [place], [address], 06/16/2024 17:07:10 06/15/19 25 06/17/2024 CALCI UM calcium 10.0 mg/dL 8.6-10 .2 normal Not Available [facility] ([facility]) [address] [facility] [place], [address], 06/17/2024 17:07:09 06/15/19 25 06/16/2024 JED EN AUTHO RIZAT ION written authorizatio n Commen t Jed en Autho rizat ion Recei beulah. Autho rizat ion recei beulah from PER ORIGI NAL ORDER 41-0 06-16 Logge d by Myah Urbano as Not Available [facility] ([facility]) [address] [facility] [place], [address], 06/17/2024 17:07:10 07/28/19 25 home sleep study No observ ation record ed. [facility] [address] [facility] [address], [place], [address], 08/06/2024 10:42:12 Result Notes None recorded. Problems Name Problem SNOMED Code Status Onset Date Resolution Date Notes Provider Name and Address Organization Details Recorded Time Generalized anxiety disorder 98347334 Active 2023 NOAM Marin [address] [place] [address], [phone], [employer] 5 12:11:32 Dental abscess 782002921 Active 2023 NOAM Marin [address] [place] [address], [phone] 8, [employer] 4 11:45:24 Gastroesoph ageal reflux disease without esophagitis 957042190 Active 2023 NOAM Marin [address] [place] [address], [phone] 8, [employer] 5 12:11:39 Acute sinusitis 91544496 Active 2024 NOAM Marin [address] [place] [address], [phone] 8, [employer] 5 12:11:06 Daytime somnolence 315791300794 Active 2024 NOAM Marin [address] [place] [address], [phone] 8, [employer] 5 14:32:03 Alkaline phosphatase above reference range 727812634 Active 2024 NOAM Marni [address] [place] [address], [phone] 8, [employer] 5 10:41:43 Poor short-term memory 936719298 Active 2024 NOAM Marin [address] [place] [address], [phone] 8, [employer] 5 11:29:57 Chronic sinusitis 67610274 Active 2024 NOAM Marin [address] [place], [phone], [employer] 5 10:58:01 Vertigo 977684631 Active 2024 NOAM Marin [address] [place], [address], [employer] 5 10:58:05 Essential hypertensio n 17198071 Active 2024 NOAM Marin [address] [place], [phone], [employer] 5 14:52:14 Problem Notes None recorded. Medical Equipment None Reported. Allergies No known drug allergies Medications Name Sig Start Date Stop Date Status Note LastModified by Organization Details LastModified Time aspirin low 81mg chw TAKE 1 TABLET BY MOUTH ONCE DAILY 03/13 completed Not Available Not Available Not Available amoxicillin 500 mg capsule TAKE 1 CAPSULE BY MOUTH THREE TIMES DAILY 03/13 completed Not Available Not Available Not Available atorvastati n 40 mg tablet TAKE 1 TABLET BY MOUTH AT BEDTIME NIGHTLY active Not Available Not Available No t Available atorvastati n 10 mg tablet TAKE 1 TABLET BY MOUTH AT BEDTIME FOR CHOLESTER OL 03/13 completed Not Available Not Available Not Available ibuprofen 800 mg tablet TAKE 1 TABLET BY MOUTH EVERY 12 HOURS NEEDED 03/13 completed Not Available Not Available Not Available sucralfate 1 gram tablet Take 1 tablet 4 times a day by oral route as directed for 14 days, for heartburn . 05/25 completed Not Available Not Available Not Available ondansetron HCl 4 mg tablet TAKE 1 TABLET BY MOUTH EVERY 8 HOURS NEEDED FOR NAUSEA AND VOMITING 03/13 completed Not Available Not Available Not Available famotidine 40 mg tablet TAKE 1 TABLET BY MOUTH ONCE DAILY 03/13 completed Not Available Not Available Not Available prednisone 20 mg tablet TAKE 1 TABLET BY MOUTH TWICE DAILY DIRECTED FOR 5 DAYS 06/15 completed Not Available Not Available Not Available metoprolol succinate ER 100 mg tablet,exte nded release 24 hr TAKE 1 TABLET BY MOUTH ONCE DAILY FOR HIGH BLOOD PRESSURE active Not Available Not Available No t Available amlodipine 2.5 mg tablet TAKE 1 TABLET BY MOUTH ONCE DAILY FOR 15 DAYS 03/13 completed Not Available Not Available Not Available amlodipine 5 mg tablet Take 1 tablet every day by oral route for 90 days. 2024 active Not Available Not Available Not Avai lable aspirin 81 mg tablet,bob yed release TAKE 1 TABLET BY MOUTH ONCE DAILY active Not Available Not Available No t Available pantoprazol e 20 mg tablet,bob yed release TAKE 1 TABLET BY MOUTH ONCE DAILY active Not Available Not Available No t Available amoxicillin 875 mg tablet TAKE 1 TABLET BY MOUTH TWICE DAILY 03/13 completed Not Available Not Available Not Available amlodipine 5 mg-benazepr il 10 mg capsule TAKE 1 CAPSULE BY MOUTH ONCE DAILY 03/13 completed Not Available Not Available Not Available meclizine 25 mg tablet TAKE 1 TABLET BY MOUTH THREE TIMES DAILY FOR 10 DAYS active Not Available Not Available No t Available cephalexin 500 mg capsule TAKE 1 CAPSULE BY MOUTH EVERY 8 HOURS FOR 10 DAYS 08/13 completed Not Available Not Available Not Available buspirone 10 mg tablet TAKE 1 TABLET BY MOUTH TWICE DAILY 03/13 completed Not Available Not Available Not Available buspirone 7.5 mg tablet TAKE 1 TABLET BY MOUTH TWICE DAILY 03/13 completed Not Available Not Available Not Available cephalexin 500 mg tablet Take 1 tablet every 6 hours by oral route for 10 days. 2024 active Not Available Not Available Not Avai lable hydroxyzine HCl 25 mg tablet TAKE 2 TABLETS BY MOUTH TWICE DAILY NEEDED FOR ITCHING 03/13 completed Not Available Not Available Not Available hydrochloro thiazide 25 mg tablet TAKE 1/2 (ONE-HALF ) TABLET BY MOUTH ONCE DAILY 03/13 completed Not Available Not Available Not Available mirtazapine 15 mg tablet TAKE 1 TABLET BY MOUTH AT BEDTIME NIGHTLY 03/13 completed Not Available Not Available Not Available cefdinir 300 mg capsule TAKE 1 CAPSULE BY MOUTH EVERY 12 HOURS FOR 10 DAYS 03/13 completed Not Available Not Available Not Available diazepam 5 mg tablet TAKE 1 TABLET BY MOUTH TWICE DAILY NEEDED FOR SEVERE AND PERSISTEN T ANXIETY ONLY active Not Available Not Available No t Available amoxicillin 875 mg-potassiu m clavulanate 125 mg tablet TAKE 1 TABLET BY MOUTH EVERY 12 HOURS DIRECTED FOR INFECTION FOR 10 DAYS 06/15 completed Not Available Not Available Not Available buspirone 15 mg tablet TAKE 1 TABLET BY MOUTH TWICE DAILY DIRECTED active Not Available Not Available No t Available levocetiriz ine 5 mg tablet TAKE 1 TABLET BY MOUTH ONCE DAILY active Not Available Not Available No t Available desvenlafax ine succinate ER 50 mg tablet,exte nded release 24 hr TAKE 1 TABLET BY MOUTH ONCE DAILY 03/13 completed Not Available Not Available Not Available omega 3 360 mg-dha 108 mg-epa 180 mg-fish oil 1,200 mg capsule Take 1 capsule every day by oral route as directed for 90 days. 2024 active Not Available Not Available Not Avai lable Voquezna 20 mg tablet TAKE 1 TABLET BY MOUTH ONCE DAILY FOR HEARTBURN active Not Available Not Available No t Available Vitals Date Recorded Body height Body mass index (BMI) Body weight Heart rate Oxygen saturation Oxygen saturation in Arterial blood by Pulse oximetry Body temperature Systolic blood pressure Diastolic blood pressure Provider Name and Address Organization Details Last Updated DateTime 5 177.8 cm 26.7 kg/m2 37518.4 6 g 78 /min 96 % 96 % 98.4 [degF] 138 mm[Hg] 88 mm[Hg] [employer] 5 11:39:19 Date Recorded Body height Body mass index (BMI) Body weight Heart rate Oxygen saturation Oxygen saturation in Arterial blood by Pulse oximetry Body temperature Systolic blood pressure Diastolic blood pressure Provider Name and Address Organization Details Last Updated DateTime 5 177.8 cm 26.7 kg/m2 57131.9 g 80 /min 96 % 96 % 98.3 [degF] 132 mm[Hg] 74 mm[Hg] [employer] 5 11:20:56 Date Recorded Body height Body mass index (BMI) Body weight Body temperature Heart rate Oxygen saturation Oxygen saturation in Arterial blood by Pulse oximetry Systolic blood pressure Diastolic blood pressure Provider Name and Address Organization Details Last Updated DateTime 5 177.8 cm 26 kg/m2 80180.3 2 g 98.8 [degF] 77 /min 97 % 97 % 138 mm[Hg] 84 mm[Hg] Concepcion Nguyen [employer] 5 11:14:49 Date Recorded Body height Body mass index (BMI) Body weight Body temperature Oxygen saturation Oxygen saturation in Arterial blood by Pulse oximetry Heart rate Systolic blood pressure Diastolic blood pressure Provider Name and Address Organization Details Last Updated DateTime 5 177.8 cm 26.9 kg/m2 78319.4 9 g 98.2 [degF] 97 % 97 % 74 /min 124 mm[Hg] 84 mm[Hg] [employer] 5 10:31:53 Date Recorded Body weight Body mass index (BMI) Body height Heart rate Oxygen saturation Oxygen saturation in Arterial blood by Pulse oximetry Systolic blood pressure Diastolic blood pressure Provider Name and Address Organization Details Last Updated DateTime 4 45864.8 8 g 25.6 kg/m2 177.8 cm 74 /min 97 % 97 % 126 mm[Hg] 82 mm[Hg] [employer] 4 11:15:27 Social History Question Answer Notes LastModified by Organizat ion Details LastModified Time Tobacco Smoking Status Never Smoker [employer] 03/13/2024 11:15:54 Do You Have An Advance Directive? No Information not available 03/13/2024 Is Your Home Air Conditioned? Yes Information not available 03/13/2024 Do You Wear A Helmet When Biking? No Information not available 03/13/2024 Are You Blind Or Do You Have Difficulty Seeing? No Information not available 03/13/2024 What Is Your Level Of Caffeine Consumption? Occasional Information not available 03/13/2024 What Type Of Picking Machine Operator Do You Use? None Information not available 03/13/2024 In The 14 Days Before Symptom Onset, Have You Had Close Contact With A Laboratory-confir med COVID-19 While That Case Was Ill? No [email or web address] Information not available 07/09/2024 In The 14 Days Before Symptom Onset, Have You Had Close Contact With A Person Who Is Under Investigation For COVID-19 While That Person Was Ill? No [email or web address] Information not available 07/09/2024 Have You Been To An Area Known To Be High Risk For COVID-19? No Information not available 03/13/2024 Are You Deaf Or Do You Have Serious Difficulty Hearing? No Information not available 03/13/2024 What Type Of Diet Are You Following? REGULAR Information not available 03/13/2024 What Is The Highest Grade Or Level Of School You Have Completed Or The Highest Degree You Have Received? [id number] Information not available 03/13/2024 Who Is Your Employer? [employer] Information not available 03/13/2024 Have There Been Any Changes To Your Family Or Social Situation? No Information no t available 03/13/2024 Are There Any Guns Present In Your Home? Yes Information not available 03/13/2024 Which Of Your Hands Is Dominant? Right Information not available 03/13/2024 What Is Your Home Situation? Mother Information not available 03/13/2024 Do You Have A Medical Power Of Ginseng Farmer? No Information not available 03/13/2024 What Was The Date Of Your Most Recent Tobacco Screening? 08/13/2024 Information not available 08/13/2024 Are There Any Occupational Health Risks Where You Work? No Information not available 03/13/2024 Do You Have Any Pets? No Information not available 03/13/2024 What Is Your Relationship Status? Single Information not available 03/13/2024 Have You Repeated Any Grades? Yes Information not available 03/13/2024 Do You Use Your Seat Belt Or Car Seat Routinely? Yes Information not available 03/13/2024 Are You Sexually Active? No Information not available 03/13/2024 Do You Have Smoke And Carbon Monoxide Detectors In Your Home? Yes Information not available 03/13/2024 Are You Passively Exposed To Smoke? No Information no t available 03/13/2024 Are There Any Smokers In Your House? No Information not available 03/13/2024 Do You Participate In Social Media? Yes Information not available 03/13/2024 Do You Use Sunscreen Routinely? No Information not available 03/13/2024 Has Tobacco Cessation Counseling Been Provided? Yes Information not available 03/13/2024 On What Date Was Tobacco Cessation Counseling Provided? 08/13/2024 Information not available 08/13/2024 Have You Recently Traveled Abroad? No Information not available 03/13/2024 Do You Have Difficulty Walking Or Climbing Stairs? No Information not available 03/13/2024 Are You Currently In School? No Information not available 03/13/2024 Do You Have Any Dietary Restrictions? No Information not available 03/13/2024 Sex: Male Functional Status Question Answer Note LastModified by Organizat ion Details LastModified Time Do you use any illicit or recreational drugs? No Information not available 03/13/2024 Do you or have you ever used any other forms of tobacco or nicotine? Yes Information not available 03/13/2024 What is your level of alcohol consumption? None Information not available 03/13/2024 Do you or have you ever used smokeless tobacco? Currently chews tobacco Information not available 03/13/2024 Are you currently employed? Yes Information not available 03/13/2024 Do you have transportation difficulties? No Information not available 03/13/2024 Are you able to walk? YESWOREST Information not available 03/13/2024 Do you have difficulty doing errands alone? No Information not available 03/13/2024 Are you able to care for yourself? Yes Information n ot available 03/13/2024 Do you have difficulty dressing or bathing? No Information not available 03/13/2024 Do you or have you ever used e-cigarettes or vape? Never used electronic cigarettes Information not available 03/13/2024 What is your exercise level? None Information not available 03/13/2024 Mental Status Question Answer Note LastModified by Organizat ion Details LastModified Time Do you feel stressed (tense, restless, nervous, or anxious, or unable to sleep at night)? [id number] Information not available 03/13/2024 Do you have difficulty concentrating, remembering or making decisions? No Information no t available 03/13/2024 Are you or have you been involved with bullying? No Information not available 03/13/2024 Family History Relationship Description Onset Age of this Age Resolved Age Notes LastModified by Organization Details LastModified Time Father Heart disease Not available 2023 11:21:47 Father Disease of liver Not available 2023 11:21:57 Medical History Condition Response Coronary Artery Disease N Other N Gout N Kidney Stones N Blood Diseases N Hyperthyroidism N Blood Transfusion N Breast Cancer N Emergency room visit since last appointm ent. Y COPD N Depression N Dermatologic Disorders N Hypothyroidism N Lung Disease N Developmental or Behavioral Disorders N Defects or Inherited Disease N Breast Problem N Difficulty Swallowing N Anesthesia Complications N History of STI N Meniere's disease N Anxiety Disorder Y Muscle, Joint, or Bone Problems N Autoimmune disease N Vision or Eye Problems N Arthritis N Polyps N Infertility N Mental Disorder N Congenital Anomalies N Acid Reflux (GERD) Y Cancer N Stroke N Neurologic/Epilepsy N Endometriosis N Bladder or Kidney Problems N High Cholesterol Y Liver Disease N Organ Transplant N Psychiatric/Mental Health Condition N Fibromyalgia N Dialysis N Schizophrenia N Headaches N Kidney Disease N Allergies/Hayfever N Heart Problems N Ear or Hearing Problems N Hospitalizations N Learning Disorder N Artificial Joints N Thyroid Problems N GI Problems N Acne N ADD/ADHD N Eating Disorder N Anemia N Constipation N Mental Illness N Ovarian Cancer N Diabetes N Bedwetting N Hepatitis/Liver Disease N Tuberculosis N Eczema N Diverticulitis N Abuse/Domestic Violence N Asthma N Trauma/Violence N Substance Abuse N Reflux/GERD N Depression/ depression N Hepatitis N Heart Disease N Pulmonary Embolism N Tourette Syndrome N Chronic Ear Infections N Pre-Eclampsia N Hypertension Y Chicken Pox N Autism Spectrum Disorder (ASD) N Osteoporosis N Thrombophilias N Immunizations Vaccine Type Date Status Note Provider Nam e and Address Organization Details Recorded Time COVID-19 vaccine, vector-nr, rS-Ad26, PF, 0.5 mL 08/16/2020 completed Francisca gonzalez [facility] [place], [place] 05/25/2024 11:40:09 Past Encounters Encounter ID Performer Location Encounter Start Date Encounter Closed Date Diagnosis/Indication Diagnosis SNOMED-CT Code Diagnosis ICD10 Code Diagnosis Note [id number] NOAM Marin [facility] [address] [place] [address] 03/13/2024 11:05:52 03/13/2024 11:46:23 Long-term current use of drug therapy 748248637 Z79.899 Generalize d anxiety disorder 07175103 F41.1 Dental abscess 006890242 K04.7 Gastroesop hageal reflux disease without esophagitis 651050994 K21.9 [id number] Lili Frank[address] [address] 05/25/2024 11:29:53 05/25/2024 12:09:16 Adult health examination 613918911 Z00.00 Screening for malignant neoplasm of prostate 751215583 Z12.5 Fatigue 16896077 R53.83 Acute sinusitis 50973681 J01.90 Generalize d anxiety disorder 27863608 F41.1 [id number] Lili Frank [address] [address] 06/15/2024 10:54:29 06/15/2024 12:40:55 Daytime somnolence 8571150067 00 R40.0 Alkaline p hosphatase above reference range 181093249 R74.8 Check PTH [id number] Lili Frank [address] [address] 07/09/2024 11:05:12 07/09/2024 11:29:58 Poor short-term memory 859663831 R41.3 Do home sleep study when he receives it Generalize d anxiety disorder 74041327 F41.1 [id number] Lili Frank [address] [address] 08/13/2024 10:24:44 08/13/2024 11:36:58 Chronic sinusitis 83149820 J32.9 Vertigo 044181484 R42 Gastroesop hageal reflux disease without esophagitis 848924732 K21.9 Generalize d anxiety disorder 63468116 F41.1 Health Concerns Section Related Observation LastModified by Organization Detai ls LastModified Time None Recorded Concern Status LastModified by Organization Details LastModified Time None Recorded Advance Directives Directive N: Payers Insurance Date Sequence Insurance Name Policy Number Policy Carrington Covered Member ID Carrington Member ID Guarantor Name 08/18/2024 1 [place] [id number] 1 Julián Meraz [id number] Julián Meraz 03/13/2024 2 [employer] Julián Meraz [id number] Julián Meraz Notes Date Note Type Note Provider Name and Address Organization Details Recorded Time 03/13/2024 text/html Patient presents to establish care.History of anxiety. Doing well on buspirone and Valium PRN.History of HTN. Blood pressure now well controlled. Denies headache, chest pain, vertigo, dyspnea.Has a dental infection. NOAM Marin [address] [place] [address], [address], [employer]. 03/13/2024 13:10:52 05/25/2024 text/html Patient presents stating that he feels off for several days but cannot verbalize exactly how. He states he feels similar to when he had dental abscesses. Has pain and pressure behind his eyes. Feels a little off balance. Doesn't have sinus pressure or congestion. No sore throat. Has smaller appetite. Feels full faster.History of anxiety. Needs refills on Valium and Buspirone. NOAM Marin [address] [place], [address], [employer]. 05/25/2024 14:16:57 06/15/2024 text/html Patient presents for followup.History of anxiety.States he is still having brain fog. He has trouble verbalizing exactly what it is. Just feels like he can't think clearly. Worse in am.States he sleeps well. Denies snoring or apneic episodes but also notes that he falls asleep watching TV frequently. NOAM Marin [address] [place], [address], [employer]. 06/16/2024 10:53:47 07/09/2024 text/html Patient still complaining of brain fog.States he has trouble remembering things.Seems worse when he's outside/at work and better at home.Took a sinus pill and that seemed to helpHas not gotten home sleep study yetNeeds refills on Valium for anxietyNeurology appt in October NOAM Marin [address] [place], [address], [employer] 07/09/2024 16:11:07 08/13/2024 text/html Patient presents for followup. Still c/o brain fog. Sees neurologist in October. Went to ER a few weeks ago and they gave him Keflex, Meclizine. States that seems to help while he is taking it, but returns when he stops. He is also still having heartburn. Got Voquezna, but didn't start taking it yet because he was finishing the Protonix he has. History of anxiety. Due for refills on Valium. NOAM Marin [address] [place], [address], [employer] 08/17/2024 11:06:01
--- OUTSIDE RECORDS SUMMARY | 2024-10-22 07:36 | XMS_ITS | Clinical Summary ---
Author Organization Healthcare Address [address] [place] [address] Care Team Providers Care Visiting Nurse Name Role Phone Lili Frank NOAM Primary Care Provider [phone] Immunizations Immunization Administration Dates Next Due TD (adult), 2 Lf tetanus tox oid, preservative free, adsorbed 01/30/2010 Social History Tobacco Use Types Packs/Day Years Used Date Smoking Tobacco: Never Assessed Sex and Gender Information Value Date Recorded Sex Assigned at Not on file Legal Sex Male 6:14 PM EDT Gender Identity Not on file Sexual Orientation Not on file Plan of Treatment Upcoming Encounters Date Type Department Care Team (Late st Contact Info) Description 02/11/2025 12:00 PM EDT Consult [facility] [address] [place] [address] Ghislaine Moreno MD [address] [place] [address] Health Maintenance Due Date Last Done Comments [facility]-Depression Screening 1964 [facility]-Infant/Child/Adol SDOH Screenings 1964 [facility]- SDOH Screenings 1982 [facility]-Adult SDOH Screenings 1982 CT Colonography 2009 Colonoscopy 2009 FIT-DNA 2009 FIT 2009 FOBT 2009 Sigmoidoscopy 2009 [facility]-Colorectal Cancer Screening 2009 [facility]-DTaP,Tdap,and Td Vaccine s (1 - Tdap) 01/31/2010 01/30/2010 [facility]-Pneumococcal Vaccine: 50 + Years (1 of 1 - PCV) 2014 [facility]-Zoster Vaccines (1 of 2) 2014 FJG-KGSEH-03 Vaccine (2 - 20 24-25 season) 2024 08/16/2020 [facility]-Influenza Vaccine (Seaso n Ended) 2025 [facility]-RSV Vaccine: 60+ Years o r (1 - 1-dose 75+ series) 2039 HPV Vaccines Aged Out No longer eligi ble based on patient's age to complete this topic [facility]-HIB Vaccines Aged Out No longer e ligible based on patient's age to complete this topic [facility]-Hepatitis A Vaccines Aged Out No longer eligible based on patient's age to complete this topic [facility]-IPV Vaccines Aged Out No longer e ligible based on patient's age to complete this topic [facility]-Rotavirus Vaccines Aged Out No lo nger eligible based on patient's age to complete this topic Care Teams Visiting Nurse Relationship Specialty Start Date End Date Lili Frank PA [address] [place] [address] PCP - General 07/14/24
--- OUTSIDE RECORDS SUMMARY | 2024-10-22 07:36 | XMS_ITS | Referral Summary ---
Author Organization [facility] Address [address] [place] [address] Care Team Providers Care Bread Packer Name Role Phone ZacLili Rodolfo GOMEZ Primary Care Provider [phone] Allergies No known active allergies Medications No [...] Date Colby rded Speak language other than Cambodian at home Not on file 09/14/2023 Want [...] 09/14/2023 10:52 AM EDT Plan of Treatment Not on file Insurance BLUE CROSS/BLUE SHIELD Care Teams Bread Packer Relationship Specialty Start Date End Date Lili Frank PA-C [address] [place] [address] PCP - General Physician Piano Mechanic Apprentice 09/14/23
== END 2024-10-22 02:10 | disposition home or self-care (01) ==
LOC: ER 03:11
PROVIDERS: Emergency Provider Emergency Medicine; PCP Physician Assistant
DX: R20.8 Other disturbances of skin sensation (principal)
CPT/HCPCS: 99283

== ENCOUNTER 2024-10-30 07:56 | Outpatient (CLI) | payer BC, SELFPAY ==
--- OUTSIDE RECORDS SUMMARY | 2024-10-30 08:00 | XMS_ITS | Referral Summary ---
Author Organization [facility] Address [address] [place] [address] Care Team Providers Care Strap Making Machine Operator Name Role Phone ZacLili Rodolfo GOMEZ Primary Care Provider [phone] Allergies No known active allergies Medications No [...] 0 09/14/2023 Family and Community Support Answer Fera e Recorded Help with Day to Day Activities Not on file 09/14/2023 Feeling Lonely or Isolated Not on file 09/13 Educational Attainment Answer Date Colby rded Speak language other than Paraguayan at home Not on file 09/14/2023 Want [...] file Insurance BLUE CROSS/BLUE SHIELD Care Teams Strap Making Machine Operator Relationship Specialty Start Date End Date Lili Frank PA-C [address] [place] [address] PCP - General Physician Gallery Director 09/14/23
--- OUTSIDE RECORDS SUMMARY | 2024-10-30 08:00 | XMS_ITS | Continuity of Care Document ---
Author Organization [place] - [employer] [facility] Address [address] [place] [address] Assessment No assessment recorded. Plan of Treatment Reminders Order Date Submit Date Provider Last Modified By Organization Details Last Modified Time Details Appointments FOLLOW UP 15 2024 04:30P M Lili Frank PA-C Not available Not available Not available Lab unlisted lab - toxassur e flex 19, [id number] 0-P 2024 025 [place] [address] [facility], [address] [facility], [place], [address], 10/27/2024 08:17:16 microalb umin/cre atinine, mass ratio, urine [address], [address] [facility], [place], [address], 10/27/2024 08:35:14 urinalys is, dipstick [address], [facility] [place], [address], 10/27/2024 08:51:28 Referral None recorded . Procedures colonosc opy screenin g (PROC) 2024 025 [facility], [address], [facility] [address], [place], [address], 10/29/2024 13:50:36 Surgeries None recorded . Imaging None recorded . Medication Orders buspiron e 15 mg tablet [id number] [facility], [address] [place] [address], [address], 10/27/2024 10:22:51 Valium 5 mg tablet 2024 025 [facility], [address] [place] [address], [address], 10/27/2024 08:35:30 olanzapi ne 2.5 mg tablet 2024 025 [facility], [address] [place] [address], [address], 10/27/2024 08:35:23 Patient TargetsNo targets recorded. Patient InstructionsNo instructions recorded. Reason for Referral None Reported. Results Created Date Observation Date Name Description Value Unit Range Abnormal Flag Note LastModifiedBy Organization Detail LastModifiedTime 10/28/1910/27/2024 urina lysis , dipst ick Leukocytes Negati ve Not Available [address], [address], 10/27/2024 08:37:10 10/28/19 25 10/27/2024 urina lysis , dipst ick Nitrite negati ve Not Available [address], [address], 10/27/2024 08:37:10 10/28/19 25 10/27/2024 urina lysis , dipst ick Urobilinogen .2 Not Available [address], [address], 10/27/2024 08:37:10 10/28/19 25 10/27/2024 urina lysis , dipst ick Protein Negati ve Not Available [address], [place], [address], 10/27/2024 08:37:10 10/28/19 25 10/27/2024 urina lysis , dipst ick pH 5.5 Not Available [address], [place], [address], 10/27/2024 08:37:10 10/28/19 25 10/27/2024 urina lysis , dipst ick Blood Non-He molyze d: Trace Not Available [address], [place], [address], 10/27/2024 08:37:10 10/28/19 25 10/27/2024 urina lysis , dipst ick Specific [place] 1.025 Not Available [address], [place], [address], 10/27/2024 08:37:10 10/28/1910/27/2024 urina lysis , dipst ick Ketone Negati ve Not Available [address], [place], [address], 10/27/2024 08:37:10 10/28/1910/27/2024 urina lysis , dipst ick Bilirubin Negati ve Not Available [address], [place], [address], 10/27/2024 08:37:10 10/28/1910/27/2024 urina lysis , dipst ick Glucose Negati ve Not Available [address], [address], 10/27/2024 08:37:10 10/28/19 25 10/27/2024 urina lysis , dipst ick Appearance Clear Not Available [address], [address], 10/27/2024 08:37:10 10/28/19 25 10/27/2024 urina lysis , dipst ick Color Yellow Not Available [address], [address], 10/27/2024 08:37:10 10/28/19 25 10/27/2024 micro album in/cr eatin ine, mass ratio , urine Microalbumin 30 mg/L Not Available [address], [address], 10/27/2024 08:08:05 10/28/19 25 10/27/2024 micro album in/cr eatin ine, mass ratio , urine Creatinine 300 mg/dL Not Available [address], [address], 10/27/2024 08:08:05 10/28/19 25 10/27/2024 micro album in/cr eatin ine, mass ratio , urine Ratio <30 mg/g Not Available [address], [address], 10/27/2024 08:08:05 Result Notes None recorded. Problems Name Problem SNOMED Code Status Onset Date Resolution Date Notes Provider Name and Address Organization Details Recorded Time Generaliz ed anxiety disorder 28125919 Active 2023 NOAM Marin [address] [place] [address], [address], [facility] - [employer] 12:11:32 Dental abscess 366265440 Completed 202310/29/2024 NOAM Marin [address] [place] [address], [address], [employer] 11:42:35 Gastroeso phageal reflux disease without esophagit is 425694942 Active 2023 NOAM Marin [address] [place] [address], [address], [employer] 12:11:39 Acute sinusitis 98474954 Completed 202410/29/2024 NOAM Marin [address] [place] [address], [address], [employer] 5 11:42:24 Daytime somnolenc e 374804401261 Active 2024 NOAM Marin [address] [place] [address], [address], [employer] 5 14:32:03 Alkaline phosphata se above reference range 923738268 Active 2024 NOAM Marin [address] [place] [address], [address], [employer] 5 11:42:27 Poor short-ter m memory 632732603 Active 2024 NOAM Marin [address] [place] [address], [address], [employer] 5 11:42:41 Chronic sinusitis 57750196 Completed 202410/29/2024 NOAM Marin [address] [place] [address], [address], [employer] 5 11:42:33 Vertigo 805709932 Active 2024 NOAM Marin [address] [place] [address], [address], [employer] 5 11:42:46 Essential hypertens ion 09439701 Active 2024 NOAM Marin [address] [place] [address], [address], [employer] 5 11:42:37 Anxiety 11507236 Active 2024 NOAM Marni [address] [place], [address], [employer] 5 11:42:29 Serum creatinin e above reference range 163786287 Active 2024 NOAM Marin [address] [place] [address], [address], [employer] 5 11:42:43 Impaired cognition 679197372 Active 2024 NOAM Marin [address] [place] [address], [address], [employer] 5 11:42:39 Problem Notes None recorded. Medical Equipment None [...] Not Available Not Available No t Available olanzapine 5 mg tablet Take 1 tablet every day by oral route at bedtime for 90 days. 2024 active Not Available Not Available Not Avai lable amlodipine 2.5 mg tablet TAKE 1 TABLET BY MOUTH ONCE DAILY FOR 15 DAYS 03/13 completed Not Available Not Available Not Available amlodipine 5 mg tablet TAKE 1 TABLET BY MOUTH ONCE DAILY active Not Available Not Available No t Available olanzapine 2.5 mg tablet active Not Available Not Available Not Available aspirin 81 mg tablet,bob yed release TAKE [...] completed Not Available Not Available Not Available Valium 5 mg tablet Take 1 tablet twice a day by oral route as needed for 30 days, for severe and persisten t anxiety only. 2024 active Not Available Not Available Not Avai lable meclizine 25 mg tablet TAKE 1 TABLET BY MOUTH THREE TIMES DAILY FOR 10 DAYS 10/27 completed Not Available Not Available Not Available cephalexin 500 mg capsule TAKE 1 [...] hours by oral route for 10 days. 10/27 completed Not Available Not Available Not Available hydroxyzine HCl 25 mg tablet TAKE 2 [...] Not Available Not Available Not Available amoxicillin 875 mg-potassiu m clavulanate 125 mg tablet TAKE 1 TABLET BY MOUTH EVERY 12 HOURS DIRECTED FOR INFECTION FOR 10 DAYS 06/15 completed Not Available Not Available Not Available buspirone 15 mg tablet Take 1 tablet twice a day by oral route as directed for 90 days. 2024 active Not Available Not Available Not Avai lable levocetiriz ine 5 mg tablet TAKE 1 TABLET BY MOUTH ONCE DAILY 10/27 completed Not Available Not Available Not Available desvenlafax ine succinate ER 50 mg tablet,exte nded release 24 hr TAKE 1 TABLET BY MOUTH ONCE DAILY 03/13 completed Not Available Not Available Not Available Nurtec ODT 75 mg disintegrat ing tablet DISSOLVE 1 TABLET BY MOUTH EVERY OTHER DAY NEEDED FOR MIGRAINE HEADACHE active Not Available Not Available No t Available omega 3 360 mg-dha 108 mg-epa 180 mg-fish oil 1,200 mg capsule Take 1 capsule every day by oral route as directed for 90 days. 10/27 completed Not Available Not Available Not Available Voquezna 20 mg tablet TAKE 1 TABLET BY MOUTH ONCE DAILY FOR HEARTBURN 10/27 completed Not Available Not Available Not Available Vitals Date Recorded Body height Body mass index (BMI) Body weight Oxygen saturation Oxygen saturation in Arterial blood by Pulse oximetry Heart rate Body temperature Systolic blood pressure Diastolic blood pressure Provider Name and Address Organization Details Last Updated DateTime 5 177.8 cm 25.7 kg/m2 03398.0 3 g 98 % 98 % 78 /min 98.1 [degF] 136 mm[Hg] 80 mm[Hg] Francisca Villarreal [employer] 5 08:04:19 Social History Question Answer Notes LastModified by Organizat ion Details LastModified Time Tobacco Smoking Status Never Smoker Francisca gonzalez [employer] 03/13/2024 11:15:54 Do You Have An Advance [...] Information not available 03/13/2024 What Type Of Shrinker Do You Use? None Information not available 03/13/2024 In The 14 Days Before Symptom Onset, Have You Had Close Contact With A Laboratory-confir med COVID-19 While That Case Was Ill? No [email or web address] Information not available 07/09/2024 In The 14 Days Before Symptom Onset, Have You Had Close Contact With A Person Who Is Under Investigation For COVID-19 While That Person Was Ill? No Information not available 07/09/2024 Have You Been [...] Or The Highest Degree You Have Received? [id number] Information not available 03/13/2024 Who Is Your Employer? [employer] Information not available 03/13/2024 Have There Been Any Changes To Your Family Or Social Situation? No Information no t available 03/13/2024 Are There Any Guns Present In Your Home? Yes Information not available 03/13/2024 Which Of Your Hands Is Dominant? Right Information not available 03/13/2024 What Is Your Home Situation? Mother Information not available 03/13/2024 Do You Have A Medical Power Of Graphic Design Assistant? No Information not available 03/13/2024 What Was The Date Of Your Most Recent Tobacco Screening? 10/27/2024 Information not available 10/27/2024 Are There Any Occupational Health Risks Where [...] What Date Was Tobacco Cessation Counseling Provided? 10/27/2024 Information not available 10/27/2024 Have You Recently Traveled Abroad? No Information [...] anxious, or unable to sleep at night)? [id number] Information not available 03/13/2024 Do you have [...] rS-Ad26, PF, 0.5 mL 08/16/2020 completed Francisca Vice gonzalez, [place] - [employer] 05/25/2024 11:40:09 Past Encounters Encounter ID Performer Location Encounter Start Date Encounter Closed Date Diagnosis/Indication Diagnosis SNOMED-CT Code Diagnosis ICD10 Code Diagnosis Note [id number] NOAM Marin [facility] [address] [place] [address] 10/27/2024 07:46:58 10/27/2024 08:52:50 Long-term current use of drug therapy 531988896 Z79.899 Anxiety 89709289 F41.9 RF Valium but discussed with patient that it is not intended to be mcfp management of anxiety. Continue Buspar. Add Olanzapine at bedtime. Generalize d anxiety disorder 61053547 F41.1 Serum crea tinine above reference range 269482498 R79.89 Serum creatinine was 1.6 in ER which is stable for him Impaired cognition 86771 6002 R41.89 Continue follow up with neurology. Has MRI later this week. Overweight in adulthood with body mass index of 25 or more but less than 30 272623833 Z68.25 Screening for malignant neoplasm of colon 452676421 Z12.11 Health Concerns Section Related Observation LastModified by Organization Detai ls LastModified Time None Recorded Concern Status LastModified by Organization Details LastModified Time None Recorded Payers Encounter Date Sequence Insurance Name Policy Number Policy Carrington Covered Member ID Carrington Member ID Guarantor Name 10/27/2024 1 [place] [id number] 1 Julián Meraz [id number] Julián Meraz 10/27/2024 2 [employer] Julián Meraz [id number] Julián Meraz Notes Date Note Type Note Provider Name and Address Organization Details Recorded Time 10/27/2024 text/html Patient presents for followup.Seen in ER last week. Was having chest pain, shortness of breath. Workup negative - told it was his anxiety. Has chronic anxiety. Takes buspirone, Valium.Has been strugggling with brain fog. Has seen neurology. Started Nurtec ODT and he is getting new glasses due to weakness in muscles of right eye. States he feels like that is helping as well. NOAM Marin [address] [place] [address], [place], [address], [facility] [employer] 10/29/2024 11:44:45
--- OUTSIDE RECORDS SUMMARY | 2024-10-30 08:00 | XMS_ITS | Clinical Summary ---
Author Organization [facility] [employer] [facility] [employer] Address [address] [place] [address] Care Team Providers Care Buttonholer Name Role Phone ZacLili Rodolfo GOMEZ Primary Care Provider [phone] Allergies No known active allergies Medications No [...] Date Colby rded Speak language other than Ecuadorean at home Not on file 09/14/2023 Want [...] 2025 Insurance BLUE CROSS/BLUE SHIELD Care Teams Buttonholer Relationship Specialty Start Date End Date Lili Frank PA-C [address] [place] [address] PCP - General Physician Sports Therapist 09/14/23
--- OUTSIDE RECORDS SUMMARY | 2024-10-30 08:01 | XMS_ITS | Data Portability ---
Author Organization [facility] Address [address] [place] [address] Assessment No assessment recorded. Plan of Treatment Reminders Order Date Submit Date Provider Last Modified By Organization Details Last Modified Time Details Appointments FOLLOW UP 15 2024 04:30P M Lili Frank PA-C Not available Not available Not available Lab unlisted lab - toxassur e flex 19, [id number] 2024 025 [email or web address] [facility] ([place]), [address] [place], [address], 10/27/2024 08:17:16 microalb umin/cre atinine, mass ratio, urine [address], [address] [facility] [place], [address], 10/27/2024 08:35:14 urinalys is, dipstick [address], [address] [place], [address], 10/27/2024 08:51:28 cobalami n and folate panel, serum 2024 025 PALLAVI [facility] ([place]), [address] [place], [address], 06/16/2024 12:30:18 iron + total iron-bin ding capacity (TIBC), serum 2024 025 [facility] ([place]), [address] [place], [address], 06/16/2024 12:30:17 PSA, total, serum or plasma 2024 025 [facility] ([place]), [address] [place], [address], 05/26/2024 13:07:43 lipid panel, serum 2024 025 [facility] ([place]), [address] [place], [address], 05/26/2024 13:07:41 CMP, serum or plasma 2024 025 [facility] ([place]), [address] [place], [address], 05/26/2024 13:07:41 CBC w/ auto diff 2024 025 [facility] ([place]), [address] [place], [address], 05/26/2024 13:07:40 vitamin D, 25-hydro xy, total, serum 2024 025 [facility] ([place]), [address] [place], [address], 05/26/2024 13:07:43 TSH, ultra-se nsitive, serum 2024 025 [facility] ([place]), [address] [place], [address], 05/26/2024 13:07:42 HIV 1 + 2, meaningf ul use set 2024 025 [facility]), [address] [place], [address], 05/26/2024 13:07:43 Hepatiti s C IgG Ab, qual, serum 2024 025 [place] [facility] ([place]), [address] [place], [address], 05/26/2024 13:07:42 magnesiu m, serum or plasma 2024 025 PALLAVI [facility] ([place]), [address] [place], [address], 05/26/2024 13:07:44 Referral neurolog ist referral 2024 025 [facility] Not available 07/09/2024 13:02:46 Procedures colonosc opy screenin g (PROC) [address] [facility], [address], [place], [address], 10/29/2024 13:50:36 Surgeries None recorded . Imaging MRI, brain, w/o contrast 2024 025 [email or web address], [address] , [place], [address], 08/24/2024 14:35:33 home sleep study 2024 025 [facility], [address] [facility] [address], [place], [address], 07/27/2024 09:37:52 Medication Orders buspiron e 15 mg tablet [email or web address] [facility] [place], [address], 10/27/2024 10:22:51 Valium 5 mg tablet 2024 025 [facility], [address] [place], [address], 10/27/2024 08:35:30 olanzapi ne 2.5 mg tablet 2024 025 [facility], [address] [place], [address], 10/27/2024 08:35:23 meclizin e 25 mg tablet 2024 025 [facility], [address] [place], [address], 10/27/2024 08:21:21 Valium 5 mg tablet 2024 025 [facility], [address] [place], [address], 08/13/2024 10:59:28 cephalex in 500 mg tablet 2024 025 [facility] [address], [address] [place] [address], [address], 10/27/2024 08:21:18 Valium 5 mg tablet 2024 025 [facility], [address] [place], [address], 07/09/2024 11:58:55 Xyzal 5 mg tablet 2024 025 [facility], [address] [place], [address], 10/27/2024 08:00:25 omega 3 360 mg-dha 108 mg-epa 180 mg-fish oil 1,200 mg capsule 2024 025 [facility] [address], [address] [place] [address], [address], 10/27/2024 08:21:35 Valium 5 mg tablet 2024 025 [facility], [address] [place], [address], 05/25/2024 12:12:48 buspiron e 15 mg tablet 2024 025 [facility], [address] [place], [address], 05/25/2024 12:12:48 amoxicil zoe 875 mg-potas sium clavulan ate 125 mg tablet 2024 025 [facility], [address] [place], [address], 06/15/2024 11:28:59 predniso ne 20 mg tablet 2024 025 [facility], [address] [place], [address], 06/15/2024 11:29:02 Patient TargetsNo targets recorded. Patient Instructions Encounter Date Encounter Id Patient Instructions Last Modified By Organization Details Last Modified Time 05/25/2024 [id number] Acute Sinusitis: Care Instructions [email or web address] Not available 05/25/2024 12:12:42 08/13/2024 [id number] chronic sinusitis: care instructions [email or web address] Not available 08/13/2024 10:59:21 Reason for Referral Neurologist Referral for Poo r short-term memory Referring Physician: Lili Frank, Family Medicine, Encounter Date: 07/09/2024 Results Created Date Observation Date Name Description Value Unit Range Abnormal Flag Note LastModifiedBy Organization Detail LastModifiedTime 05/25/1905/26/2024 CBC WITH DIFFE RENTI AL/PL ATELE T WBC 5.9 x10e3 /uL 3.4-10 .8 normal Not Available [facility] ([facility]) [address] [place], [address], 05/26/2024 13:07:40 05/25/1905/26/2024 CBC WITH DIFFE RENTI AL/PL ATELE T RBC 5.06 x10e6 /uL 4.14-5 .80 normal Not Available [facility] ([facility]) [address] [place], [address], 05/26/2024 13:07:40 05/25/19 05/26/2024 CBC WITH DIFFE RENTI AL/PL ATELE T hemoglobin 16.3 g/dL 13.0-1 7.7 normal Not Available [facility] ([facility]) [address] [facility], [place], [address], 05/26/2024 13:07:40 05/25/1905/26/2024 CBC WITH DIFFE RENTI AL/PL ATELE T hematocrit 49.2 % 37.5-5 1.0 normal Not Available [facility] ([facility]) [address] [facility] [place], [address], 05/26/2024 13:07:40 05/25/1905/26/2024 CBC WITH DIFFE RENTI AL/PL ATELE T MCV 97 fL 79-97 normal Not Available [facility] ([facility]) [address] [place], [address], 05/26/2024 13:07:40 05/25/1905/26/2024 CBC WITH DIFFE RENTI AL/PL ATELE T MCH 32.2 pg 26.6-3 3.0 normal Not Available [facility] ([facility]) [address] [place], [address], 05/26/2024 13:07:40 05/25/1905/26/2024 CBC WITH DIFFE RENTI AL/PL ATELE T MCHC 33.1 g/dL 31.5-3 5.7 normal Not Available [facility] ([facility]) [address] [place], [address], 05/26/2024 13:07:40 05/25/1905/26/2024 CBC WITH DIFFE RENTI AL/PL ATELE T RDW 11.7 % 11.6-1 5.4 Not Available [facility] ([facility]) [address] [place], [address], 05/26/2024 13:07:40 05/25/19 25 05/26/2024 CBC WITH DIFFE RENTI AL/PL ATELE T platelets 235 x10e3 /uL 150-45 0 normal Not Available [facility] ([facility]) [address] [facility], [place], [address], 05/26/2024 13:07:40 05/25/19 25 05/26/2024 CBC WITH DIFFE RENTI AL/PL ATELE T neutrophils 64 % not estab. normal Not Available [facility] ([facility]) [address] [facility], [place], [address], 05/26/2024 13:07:40 05/25/19 25 05/26/2024 CBC WITH DIFFE RENTI AL/PL ATELE T lymphs 24 % not estab. normal Not Available [facility] ([facility]) [address] [facility], [place], [address], 05/26/2024 13:07:40 05/25/19 25 05/26/2024 CBC WITH DIFFE RENTI AL/PL ATELE T monocytes 8 % not estab. normal Not Available [facility] ([facility]) [address] [facility], [place], [address], 05/26/2024 13:07:40 05/25/19 25 05/26/2024 CBC WITH DIFFE RENTI AL/PL ATELE T eos 3 % not estab. normal Not Available [facility] ([facility]) [address] [facility], [place], [address], 05/26/2024 13:07:40 05/25/19 25 05/26/2024 CBC WITH DIFFE RENTI AL/PL ATELE T basos 1 % not estab. normal Not Available [facility] ([facility]) [address] 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 0 normal Not Available [facility] ([facility]) [address] [place], [address], 05/26/2024 13:07:40 05/25/19 25 05/26/2024 CBC WITH DIFFE RENTI AL/PL ATELE T lymphs (absolute) 1.4 x10e3 /uL 0.7-3. 1 normal Not Available [facility] ([facility]) [address] [place], [address], 05/26/2024 13:07:40 05/25/19 25 05/26/2024 CBC WITH DIFFE RENTI AL/PL ATELE T monocytes(ab solute) 0.5 x10e3 /uL 0.1-0. 9 normal Not Available [facility] ([facility]) [address] [place], [address], 05/26/2024 13:07:40 05/25/19 25 05/26/2024 CBC WITH DIFFE RENTI AL/PL ATELE T eos (absolute) 0.2 x10e3 /uL 0.0-0. 4 normal Not Available [facility] ([facility]) [address] [place], [address], 05/26/2024 13:07:40 05/25/19 25 05/26/2024 CBC WITH DIFFE RENTI AL/PL ATELE T baso (absolute) 0.0 x10e3 /uL 0.0-0. 2 normal Not Available [facility] ([facility]) [address] [place], [address], 05/26/2024 13:07:40 05/25/19 25 05/26/2024 CBC WITH DIFFE RENTI AL/PL ATELE T immature granulocytes 0 % not estab. Not Available [facility] ([facility]) [address] [facility], [place], [address], 05/26/2024 13:07:40 05/25/19 25 05/26/2024 CBC WITH DIFFE RENTI AL/PL ATELE T immature grans (abs) 0.0 x10e3 /uL 0.0-0. 1 Not Available [facility] ([facility]) [address] 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, [place], [address], 05/26/2024 13:07:40 05/25/19 25 05/26/2024 COMP. METAB OLIC PANEL (14) glucose 92 mg/dL 70-99 normal Not Available [facility] ([facility]) [address] [facility], [place], [address], 05/26/2024 13:07:41 05/25/19 25 05/26/2024 COMP. METAB OLIC PANEL (14) BUN 10 mg/dL 6-24 normal Not Available [facility] ([facility]) [address] [facility], [place], [address], 05/26/2024 13:07:41 05/25/19 25 05/26/2024 COMP. METAB OLIC PANEL (14) creatinine 1.10 mg/dL 0.76-1 .27 normal Not Available [facility] ([facility]) [address], [place], [address], 05/26/2024 13:07:41 05/25/19 25 05/26/2024 COMP. METAB OLIC PANEL (14) eGFR 77 mL/mi n/1.7 3 >59 normal Not Available [facility] ([facility]) [address] [place], [address], 05/26/2024 13:07:41 05/25/19 25 05/26/2024 COMP. METAB OLIC PANEL (14) BUN/creatini ne ratio 9 9-20 normal Not Available [facility] ([facility]) [address] [facility] [place], [address], 05/26/2024 13:07:41 05/25/19 25 05/26/2024 COMP. METAB OLIC PANEL (14) sodium 143 mmol/ L 134-14 4 normal Not Available [facility] ([facility]) [address] [facility] [place], [address], 05/26/2024 13:07:41 05/25/19 25 05/26/2024 COMP. METAB OLIC PANEL (14) potassium 4.6 mmol/ L 3.5-5. 2 normal Not Available [facility] ([facility]) [address] [facility] [place], [address], 05/26/2024 13:07:41 05/25/19 25 05/26/2024 COMP. METAB OLIC PANEL (14) chloride 107 mmol/ L 96-106 above high normal Not Available [facility] ([facility]) [address] [facility] [place], [address], 05/26/2024 13:07:41 05/25/19 25 05/26/2024 COMP. METAB OLIC PANEL (14) carbon dioxide, total 20 mmol/ L 20-29 normal Not Available [facility] ([facility]) [address] [facility] [place], [address], 05/26/2024 13:07:41 05/25/19 25 05/26/2024 COMP. METAB OLIC PANEL (14) calcium 10.5 mg/dL 8.7-10 .2 above high normal Not Available [facility] ([facility]) [address] [place], [address], 05/26/2024 13:07:41 05/25/19 25 05/26/2024 COMP. METAB OLIC PANEL (14) protein, total 7.3 g/dL 6.0-8. 5 normal Not Available [facility] ([facility]) [address] [place], [address], 05/26/2024 13:07:41 05/25/19 25 05/26/2024 COMP. METAB OLIC PANEL (14) albumin 4.8 g/dL 3.8-4. 9 normal Not Available [facility] ([facility]) [address] [place], [address], 05/26/2024 13:07:41 05/25/19 25 05/26/2024 COMP. METAB OLIC PANEL (14) globulin, total 2.5 g/dL 1.5-4. 5 Not Available [facility] ([facility]) [address] [place], [address], 05/26/2024 13:07:41 05/25/19 25 05/26/2024 COMP. METAB OLIC PANEL (14) bilirubin, total 0.3 mg/dL 0.0-1. 2 normal Not Available [facility] ([facility]) [address] [place], [address], 05/26/2024 13:07:41 05/25/19 25 05/26/2024 COMP. METAB OLIC PANEL (14) alkaline phosphatase 84 IU/L 44-121 normal Not Available [facility] ([facility]) [address] [place], [address], 05/26/2024 13:07:41 05/25/19 25 05/26/2024 COMP. METAB OLIC PANEL (14) AST (SGOT) 38 IU/L 0-40 normal Not Available [facility] ([facility]) [address] [place], [address], 05/26/2024 13:07:41 05/25/19 25 05/26/2024 COMP. METAB OLIC PANEL (14) ALT (SGPT) 39 IU/L 0-44 normal Not Available [facility] ([facility]) [address] [place], [address], 05/26/2024 13:07:41 05/25/19 25 05/26/2024 LIPID PANEL cholesterol, total 234 mg/dL 100-19 9 above high normal Not Available [facility] ([facility]) [address] [place], [address], 05/26/2024 13:07:41 05/25/19 25 05/26/2024 LIPID PANEL triglyceride s 124 mg/dL 0-149 normal Not Available [facility] ([facility]) [address] [place], [address], 05/26/2024 13:07:41 05/25/19 25 05/26/2024 LIPID PANEL HDL cholesterol 43 mg/dL >39 normal Not Available [facility] ([facility]) [address] [place], [address], 05/26/2024 13:07:41 05/25/19 25 05/26/2024 LIPID PANEL VLDL cholesterol jacobo 22 mg/dL 5-40 Not Available [facility] ([facility]) [address] [place], [address], 05/26/2024 13:07:41 05/25/19 25 05/26/2024 LIPID PANEL LDL chol calc ([facility]) 169 mg/dL 0-99 above high normal Not Available [facility] ([facility]) [address] 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, [place], [address], 05/26/2024 13:07:41 05/25/19 25 05/26/2024 HCV ANTIB STEFAN CASCA DE(PC R/GEN O) HCV Ab NON REACTI VE non reacti ve Not Available [facility] ([facility]) [address] [facility], [place], [address], 05/26/2024 13:07:42 05/25/19 25 05/26/2024 HCV ANTIB STEFAN CASCA DE(PC R/GEN O) interpretati on: COMMEN T Not infec james with HCV unles s early or acute infec tion is suspe cted (whic h may be delay ed in an immun ocomp romis ed indiv idual ), or other evide nce exist s to indic ate HCV infec tion. Not Available [facility] ([facility]) [address] [facility], [place], [address], 05/26/2024 13:07:42 05/25/19 25 05/26/2024 TSH TSH 1.830 uIU/m L 0.450- 4.500 normal Not Available [facility] ([facility]) [address] [facility], [place], [address], 05/26/2024 13:07:42 05/25/19 25 05/26/2024 VITAM IN [...] Endoc rine Socie ty went on to furth er defin e vitam in D insuf ficie ncy as a level betwe en 21 and 29 ng/mL (2). 1. IOM (Inst itute of Medic ine). 2010. Dieta ry refer ence intak es for calci um and D. Azucena bingham [place]: [facility] . 2. Hiral SAVAGE, Taiwo crawford [place], Marcelina off-F errar i DODGE, et al. Evalu ation , treat ment, and preve ntion of vitam in D defic iency : an Endoc rine Socie ty clini jacobo pract ice guide line. JCEM. 2010; 96(7) :1911 -30. Not Available [facility] ([facility]) [address] [facility], [place], [address], 05/26/2024 13:07:43 05/25/1905/26/2024 HIV AB/P2 4 AG WITH REFLE X HIV Ab/P24 Ag screen NON REACTI VE non reacti ve HIV Negat danitza HIV-1 /HIV- 2 antib odies and HIV-1 p24 antig en were NOT detec james. There is no labor atory evide nce of HIV infec tion. Not Available [facility] ([facility]) [address] [facility], [place], [address], 05/26/2024 13:07:43 05/25/1905/26/2024 PROST ATE SPECI FIC AG, SERUM prostate [...] or kits canno t be used inter suzie barnes . Resul ts canno t be inter prete d as absol skye evide nce of the prese nce or absen ce of senthil hernadez se. Not Available [facility] ([facility]) [address] [place], [address], 05/26/2024 13:07:43 05/25/19 25 05/26/2024 MAGNE SIUM magnesium 2.3 mg/dL 1.6-2. 3 normal Not Available [facility] ([facility]) [address] [place], [address], 05/26/2024 13:07:44 06/15/19 25 06/16/2024 IRON AND TIBC iron bind.cap.(TI BC) 324 ug/dL 250-45 0 normal Not Available [facility] ([facility]) [address] [place], [address], 06/16/2024 12:30:17 06/15/19 25 06/16/2024 IRON AND TIBC UIBC 236 ug/dL 111-34 3 normal Not Available [facility] ([facility]) [address] [place], [address], 06/16/2024 12:30:17 06/15/19 25 06/16/2024 IRON AND TIBC iron 88 ug/dL 38-169 normal Not Available [facility] ([facility]) [address] [place], [address], 06/16/2024 12:30:17 06/15/19 25 06/16/2024 IRON AND TIBC iron saturation 27 % 15-55 normal Not Available [facility] ([facility]) [address] [place], [address], 06/16/2024 12:30:17 06/15/19 25 06/16/2024 VITAM IN B12 AND FOLAT E vitamin B12 351 pg/mL 232-12 45 normal Not Available [facility] ([facility]) [address] [facility], [place], [address], 06/16/2024 12:30:18 06/15/19 25 06/16/2024 VITAM IN B12 AND FOLAT E folate (folic acid), serum 9.4 NG/mL >3.0 normal A serum folat e delfina ntrat ion of less than 3.1 ng/mL is consi dered to repre sent clini jacobo defic iency . Not Available [facility] ([facility]) [address] [facility], [place], [address], 06/16/2024 12:30:18 06/15/19 25 06/15/2024 CA+PT H INTAC T intact PTH Commen [...] - 65 < 8.6 Not Available [facility] ([facility]) [address] [facility], [place], [address], 06/16/2024 17:07:09 06/15/19 25 06/16/2024 CA+PT H INTAC T calcium COMMEN T mg/dL Pleas e refer to the follo wing speci men for addit ional lab resul ts. SEE 034-2 28 84-1 Not Available [facility] ([facility]) [address] [facility], [place], [address], 06/16/2024 17:07:09 06/15/19 25 06/16/2024 CA+PT H INTAC T PTH, intact 33 pg/mL 15-65 normal Not Available [facility] ([facility]) [address] [facility], [place], [address], 06/16/2024 17:07:09 06/15/1906/16/2024 SPECI MEN STATU S REPOR T specimen status report COMMEN T Giovanni brewer refer to the follo wing speci men for addit ional lab resul ts. TEST: [id number] 6 Calci um Panel : [id number] 1 SEE 034-2 84-1 Not Available [facility] ([facility]) [address] [facility], [place], [address], 06/16/2024 17:07:10 06/15/19 25 06/17/2024 CALCI UM calcium 10.0 mg/dL 8.6-10 .2 normal Not Available [facility] ([facility]) [address] [facility], [place], [address], 06/17/2024 17:07:09 06/15/19 25 06/16/2024 JED EN AUTHO RIZAT ION written authorizatio n Commen t Jed en Autho rizat ion Recei beulah. Autho rizat ion recei beulah from PER ORIGI NAL ORDER 034-2 41-0 06-16 Logge d by Myah Urbano as Not Available [facility] ([facility]) [address] [facility], [place], [address], 06/17/2024 17:07:10 10/28/19 25 10/27/2024 urina lysis , dipst ick Leukocytes Negati ve Not Available [facility] [address] [facility] [facility], [place], [address], 10/27/2024 08:37:10 10/28/19 25 10/27/2024 urina lysis , dipst ick Nitrite negati ve Not Available [facility] [address] [facility], [place], [address], 10/27/2024 08:37:10 10/28/19 25 10/27/2024 urina lysis , dipst ick Urobilinogen .2 Not Available [address], [place], [address], 10/27/2024 08:37:10 10/28/19 25 10/27/2024 urina lysis , dipst ick Protein Negati ve Not Available [address], [address], 10/27/2024 08:37:10 10/28/1910/27/2024 urina lysis , dipst ick pH 5.5 Not Available [address], [address], 10/27/2024 08:37:10 10/28/19 25 10/27/2024 urina lysis , dipst ick Blood Non-He molyze d: Trace Not Available [address], [address], 10/27/2024 08:37:10 10/28/19 25 10/27/2024 urina lysis , dipst ick Specific [place] 1.025 Not Available [address], [address], 10/27/2024 08:37:10 10/28/19 25 10/27/2024 urina lysis , dipst ick Ketone Negati ve Not Available [address], [address], 10/27/2024 08:37:10 10/28/19 25 10/27/2024 urina lysis , dipst ick Bilirubin Negati ve Not Available [address], [address], 10/27/2024 08:37:10 10/28/19 25 10/27/2024 urina lysis , dipst ick Glucose Negati ve Not Available [address], [address], 10/27/2024 08:37:10 10/28/19 25 10/27/2024 urina lysis , dipst ick Appearance Clear Not Available [address], [address], 10/27/2024 08:37:10 10/28/19 25 10/27/2024 urina lysis , dipst ick Color Yellow Not Available [address], [address], 10/27/2024 08:37:10 10/28/19 25 10/27/2024 micro album in/cr eatin ine, mass ratio , urine Microalbumin 30 mg/L Not Available [address], [address], 10/27/2024 08:08:05 10/28/19 25 10/27/2024 micro album in/cr eatin ine, mass ratio , urine Creatinine 300 mg/dL Not Available [address], [address], 10/27/2024 08:08:05 10/28/19 25 10/27/2024 micro album in/cr eatin ine, mass ratio , urine Ratio <30 mg/g Not Available [address], [address], 10/27/2024 08:08:05 07/28/19 home sleep study No observ ation record ed. [facility] [address] [facility] [address], [place], [address], 08/06/2024 10:42:12 Result Notes None recorded. Problems Name Problem SNOMED Code Status Onset Date Resolution Date Notes Provider Name and Address Organization Details Recorded Time Generaliz ed anxiety disorder 96542203 Active 2023 NOAM Marin [address] [place] [address], [address], [employer] 12:11:32 Dental abscess 366813347 Completed 202310/29/2024 NOAM Marin [address] [place] [address], [address], [employer] 11:42:35 Gastroeso phageal reflux disease without esophagit is 252412461 Active 2023 NOAM Marin [address] [place] [address], [address], [employer] 12:11:39 Acute sinusitis 99131362 Completed 202410/29/2024 NOAM Marin [address] [place] [address], [address], [employer] 11:42:24 Daytime somnolenc e 699592731273 Active 2024 NOAM Marin [address] [place] [address], [address], [employer] 5 14:32:03 Alkaline phosphata se above reference range 607015147 Active 2024 NOAM Marin [address] [place] [address], [address], [employer] 5 11:42:27 Poor short-ter m memory 258079500 Active 2024 NOAM Marin [address] [place] [address], [address], [employer] 5 11:42:41 Chronic sinusitis 88663535 Completed 202410/29/2024 NOAM Marin [address] [place] [address], [address], [employer] 11:42:33 Vertigo 622282156 Active 2024 NOAM Marin [address] [place] [address], [phone] 8, [employer] 5 11:42:46 Essential hypertens ion 98193202 Active 2024 NOAM Marin [address] [place] [address], 82487-493 8, [employer] 11:42:37 Anxiety 02734666 Active 2024 NOAM Marin [address] [place] [address], 68912-521 8, [employer] 11:42:29 Serum creatinin e above reference range 268924519 Active 2024 NOAM Marin [address] [place] [address], 84525-300 8, [employer] 11:42:43 Impaired cognition 589860703 Active 2024 NOAM Marin [address] [place] [address], 08192-119 8, [employer] 11:42:39 Problem Notes None recorded. Medical Equipment [...] completed Not Available Not Available Not Available [facility] ODT 75 mg disintegrat ing tablet DISSOLVE [...] Updated DateTime 5 177.8 cm 26.7 kg/m2 17513.4 6 g 78 /min 96 % 96 % 98.4 [degF] 138 mm[Hg] 88 mm[Hg] [employer] 5 11:39:19 Date Recorded Body height Body mass index (BMI) Body weight Heart rate Oxygen saturation Oxygen saturation in Arterial blood by Pulse oximetry Body temperature Systolic blood pressure Diastolic blood pressure Provider Name and Address Organization Details Last Updated DateTime 5 177.8 cm 26.7 kg/m2 58255.9 g 80 /min 96 % 96 % 98.3 [degF] 132 mm[Hg] 74 mm[Hg] [employer] 5 11:20:56 Date Recorded Body height Body mass index (BMI) Body weight Body temperature Heart rate Oxygen saturation Oxygen saturation in Arterial blood by Pulse oximetry Systolic blood pressure Diastolic blood pressure Provider Name and Address Organization Details Last Updated DateTime 5 177.8 cm 26 kg/m2 04265.3 2 g 98.8 [degF] 77 /min 97 % 97 % 138 mm[Hg] 84 mm[Hg] [facility] [employer] 5 11:14:49 Date Recorded Body height Body mass index (BMI) Body weight Body temperature Oxygen saturation Oxygen saturation in Arterial blood by Pulse oximetry Heart rate Systolic blood pressure Diastolic blood pressure Provider Name and Address Organization Details Last Updated DateTime 5 177.8 cm 26.9 kg/m2 25226.4 9 g 98.2 [degF] 97 % 97 % 74 /min 124 mm[Hg] 84 mm[Hg] [employer] 5 10:31:53 Date Recorded Body height Body mass index (BMI) Body weight Oxygen saturation Oxygen saturation in Arterial blood by Pulse oximetry Heart rate Body temperature Systolic blood pressure Diastolic blood pressure Provider Name and Address Organization Details Last Updated DateTime 5 177.8 cm 25.7 kg/m2 99666.0 3 g 98 % 98 % 78 /min 98.1 [degF] 136 mm[Hg] 80 mm[Hg] Francisca Villarreal [employer] 08:04:19 Social History Question Answer Notes LastModified by Organizat ion Details LastModified Time Tobacco Smoking Status Never Smoker Francisca gonzalez, [employer] 03/13/2024 11:15:54 Do You Have An [...] Information not available 03/13/2024 What Type Of Cloth Tester Quality Do You Use? None Information not available 03/13/2024 In The 14 Days Before Symptom Onset, Have You Had Close Contact With A Laboratory-confir med COVID-19 While That Case Was Ill? No [email or web address] Information not available 07/09/2024 In The 14 Days Before Symptom Onset, Have You Had Close Contact With A Person Who Is Under Investigation For COVID-19 While That Person Was Ill? No [email or web address] Information not available 07/09/2024 Have You Been [...] Or The Highest Degree You Have Received? [id number] Information not available 03/13/2024 Who Is Your Employer? [employer] Information not available 03/13/2024 Have [...] Do You Have A Medical Power Of Jack Spooler Tender? No Information not available 03/13/2024 What Was [...] anxious, or unable to sleep at night)? [id number] Information not available 03/13/2024 Do you have [...] Artery Disease N Other N Gout N Blood Diseases N Kidney Stones N Hyperthyroidism N Blood Transfusion N Breast Cancer N Emergency room visit since last appointm ent. Y Lung Disease N COPD N Depression N Dermatologic Disorders N Hypothyroidism N Defects or Inherited Disease N Developmental or Behavioral Disorders N Breast Problem N Difficulty Swallowing N [...] N High Cholesterol Y Liver Disease N Psychiatric/Mental Health Condition N Organ Transplant N Dialysis N Schizophrenia N Fibromyalgia N Headaches N Kidney Disease N Allergies/Hayfever N Heart Problems N Ear or Hearing Problems N Hospitalizations N Learning Disorder N Artificial Joints N Thyroid Problems N GI Problems N Acne N ADD/ADHD N Eating Disorder N Anemia N Constipation N Mental Illness N Diabetes N Ovarian Cancer N Bedwetting N Hepatitis/Liver Disease N Tuberculosis N Eczema N Abuse/Domestic Violence N Diverticulitis N Asthma N Trauma/Violence N Substance Abuse [...] rS-Ad26, PF, 0.5 mL 08/16/2020 completed Francisca [facility] [employer] 05/25/2024 11:40:09 Past Encounters Encounter ID Performer Location Encounter Start Date Encounter Closed Date Diagnosis/Indication Diagnosis SNOMED-CT Code Diagnosis ICD10 Code Diagnosis Note [id number] NOAM Marin [address] [address] 03/13/2024 11:05:52 03/13/2024 11:46:23 Long-term current use of drug therapy 857576421 Z79.899 Generalize d anxiety disorder 88159826 F41.1 Dental abscess 641887928 K04.7 Gastroesop hageal reflux disease without esophagitis 264588402 K21.9 [id number] NOAM Marin [address] [address] 05/25/2024 11:29:53 05/25/2024 12:09:16 Adult health examination 877018931 Z00.00 Screening for malignant neoplasm of prostate 808333111 Z12.5 Fatigue 35743181 R53.83 Acute sinusitis 74820156 J01.90 Generalize d anxiety disorder 02805452 F41.1 [id number] NOAM Marin [address] [address] 06/15/2024 10:54:29 06/15/2024 12:40:55 Daytime somnolence 1618351652 00 R40.0 Alkaline p hosphatase above reference range 253704028 R74.8 Check PTH [id number] NOAM Marin [address] [address] 07/09/2024 11:05:12 07/09/2024 11:29:58 Poor short-term memory 086551330 R41.3 Do home sleep study when he receives it Generalize d anxiety disorder 02640668 F41.1 [id number] NOAM Marin [address] [address] 08/13/2024 10:24:44 08/13/2024 11:36:58 Chronic sinusitis 85135085 J32.9 Vertigo 646679224 R42 Gastroesop hageal reflux disease without esophagitis 801144777 K21.9 Generalize d anxiety disorder 92546294 F41.1 [id number] Lili Frank [address] [address] 10/27/2024 07:46:58 10/27/2024 08:52:50 Long-term current use of drug therapy 699752383 Z79.899 Anxiety 23889197 F41.9 RF Valium but discussed with patient that it is not intended to be intermodal customer service management of anxiety. Continue Buspar. Add Olanzapine at bedtime. Generalize d anxiety disorder 42300900 F41.1 Serum crea tinine above reference range 308478387 R79.89 Serum creatinine was 1.6 in ER which is stable for him Impaired cognition 87907 6002 R41.89 Continue follow up with neurology. Has MRI later this week. Overweight in adulthood with body mass index of 25 or more but less than 30 545346164 Z68.25 Screening for malignant neoplasm of colon 326450219 Z12.11 Health Concerns Section Related Observation LastModified by Organization Detai ls LastModified Time None Recorded Concern Status LastModified by Organization Details LastModified Time None Recorded Advance Directives Directive N: Payers Insurance Date Sequence Insurance Name Policy Number Policy Carrington Covered Member ID Carrington Member ID Guarantor Name 10/24/2024 1 [place] [employer] [id number] 1 Julián Meraz [id number] Julián Meraz 03/13/2024 2 [employer] Julián Meraz [id number] Julián Meraz Notes Date Note Type Note Provider Name and Address Organization Details Recorded Time 05/25/2024 text/html Patient presents stating that he [...] on Valium and Buspirone. NOAM Marin [address] [place], [address], [employer]. 05/25/2024 14:16:57 06/15/2024 text/html Patient presents for followup.History of anxiety.States he is still having brain fog. He has trouble verbalizing exactly what it is. Just feels like he can't think clearly. Worse in am.States he sleeps well. Denies snoring or apneic episodes but also notes that he falls asleep watching TV frequently. NOAM Marin [address] [place], [address], [employer]. 06/16/2024 10:53:47 07/09/2024 text/html Patient still complaining of brain fog.States he has trouble remembering things.Seems worse when he's outside/at work and better at home.Took a sinus pill and that seemed to helpHas not gotten home sleep study yetNeeds refills on Valium for anxietyNeurology appt in October NOAM Marin [address] [place], [address], [employer]. 07/09/2024 16:11:07 08/13/2024 text/html Patient presents for [...] for refills on Valium. NOAM Marin [address] [place], [address], [employer], [employer] 08/17/2024 11:06:01 10/27/2024 text/html Patient presents for followup.Seen in [...] that is helping as well. NOAM Marin [address] [place], [address], [employer] 10/29/2024 11:44:45
--- OUTSIDE RECORDS SUMMARY | 2024-10-30 08:01 | XMS_ITS | Clinical Summary ---
Author Organization Healthcare Address [address] [place] [address] Care Team Providers Care Leather Goods I Assembler Name Role Phone Lili Frank NOAM Primary Care Provider [phone] Immunizations Immunization Administration Dates Next Due TD [...] Description 02/11/2025 12:00 PM EDT Consult [facility] [place] [facility] [address] [place] [address] Ghislaine Moreno MD [address] [place] [address] Health Maintenance Due Date Last [...] 2014 UKY-Zoster Vaccines (1 of 2) 2014 IRL-ZNPSG-52 Vaccine (2 - 20 24-25 season) 2024 [...] age to complete this topic Care Teams Leather Goods I Assembler Relationship Specialty Start Date End Date Lili Frank PA [address] [place] [address] PCP - General 07/14/24
--- NOTE | 2024-10-30 08:15 | MR_ITS ---
FINAL REPORT TECHNIQUE: Multiplanar and multisequence imaging of the brain was obtained before and after contrast administration. CLINICAL HISTORY: visual disturbance, brain fog 1 year, unable to focus with eyes COMPARISON: None FINDINGS: Brain parenchymal: There is no mass effect or midline shift. There are a few small scattered foci of T2 abnormal signal in the right frontal lobe. No additional foci of abnormal signal are identified. The cerebellum and brainstem are without acute abnormality. Ventricles: The ventricles are symmetric in size and configuration without hydrocephalus. Extra-axial spaces: No extra-axial fluid collections. Diffusion imaging: No areas of restricted diffusion to suggest acute infarct. Flow voids: Flow voids within the major intracranial vessels are preserved. Soft tissues: Soft tissues are without acute abnormality. Post contrast imaging: No abnormal enhancement. IMPRESSION: Few scattered subcortical foci of T2 abnormality in the right frontal lobe may represent changes of demyelination, sequela of migraine, or mild ischemic microvascular change. Otherwise unremarkable MRI of the head with and without contrast. Reviewed, Interpreted and Dictated by Katy Hare MD Transcribed by Carol Terrazas Authenticated and [facility]
[2024-10-30] MEDS: GADOTERIDOL INJ 20ML SYRINGE 17 ML IV (09:04)
[2024-10-30] MEDS: SODIUM CHLORIDE 0.9% 10ML SYR (RAD ONLY) 10 ML IV (09:04)
== END 2024-10-30 23:59 | disposition home or self-care (01) ==
LOC: RAD 07:57
PROVIDERS: PCP Physician Assistant; Visit Provider Specialist
DX: R90.89 Other abnormal findings on diagnostic imaging of central nervous system (principal); I10 Essential (primary) hypertension; G43.109 Migraine with aura, not intractable, without status migrainosus; R41.89 Other symptoms and signs involving cognitive functions and awareness; H49.10 Fourth [trochlear] nerve palsy, unspecified eye
CPT/HCPCS: 70553; A9576

== ENCOUNTER → 2025-01-25 11:03 | Outpatient (CLI) | payer BC, SELFPAY ==
--- OUTSIDE RECORDS SUMMARY | 2025-01-25 11:08 | XMS_ITS | Referral Summary ---
Author Organization [employer] ([place], [place], [place], [place]) Address [address] [place] [address] Care Team Providers Care Glazing Superintendent Name Role Phone ZacLili Rodolfo GOMEZ Primary Care Provider [phone] Allergies No known active allergies Medications No known medications Social History Tobacco Use Types Packs/Day Years Used Date Smoking Tobacco: Never Smokeless Tobacco: Current Snuff Tobacco Cessation:Ready to Q uit: Not Asked; Counseling Given: Not Answered Food Insecurity Answer Date Recorded Food run [...] Date Colby rded Speak language other than Guatemalan at home Not on file 09/14/2023 Want help with school or training Not on file 09/14/2023 Substance Use Answer Date Recorded Used [...] file Insurance BLUE CROSS/BLUE SHIELD Care Teams Glazing Superintendent Relationship Specialty Start Date End Date Lili Frank PA-C [address] [place] [address] PCP - General Physician Trouble Lineman 09/14/23
--- OUTSIDE RECORDS SUMMARY | 2025-01-25 11:08 | XMS_ITS | Clinical Summary ---
Author Organization [employer] ([place], [place], [place], [place]) Address [address] [place] [address] Care Team Providers Care Dust Collector Operator Name Role Phone ZacLili Rodolfo GOMEZ Primary Care Provider [phone] Allergies No known active allergies Medications No [...] Date Colby rded Speak language other than Uruguayan at home Not on file 09/14/2023 Want [...] VACCINES (2 - Td or Tdap) 01/31/2020 Tobacco Cessation Counseling and Screening (12+) 09/1309/14/2023 COVID-19 VACCINE (2 - 2024- season) 01/11/202510/2020 Influenza Vaccine (#1) 2025 Insurance BLUE CROSS/BLUE SHIELD Care Teams Dust Collector Operator Relationship Specialty Start Date End Date Lili Frank, PATRICIA [address] [place] [address] PCP - General Physician Atomic Welder 09/14/23
== END ==
LOC: SL 11:06
PROVIDERS: PCP Physician Assistant; Visit Provider Specialist
DX: G47.30 Sleep apnea, unspecified (principal)
CPT/HCPCS: 94762

== ENCOUNTER → 2025-02-26 19:49 | Outpatient (CLI) | payer BC, SELFPAY ==
--- OUTSIDE RECORDS SUMMARY | 2025-02-26 19:52 | XMS_ITS | Encounter Summary ---
Author Organization Healthcare Address [address] [place] [address] Care Team Providers Care Slider Assembler Name Role Phone Lili Frank Primary Care Provider [phone] Encounter Details Date Type Department Care Team (Late st Contact Info) Description 02/18/2025 Telephone [facility] [place] [facility] [address] [place] [address] Sagar Meraz MD [address] [place] [address] Social History Tobacco Use Types Packs/Day Years Used Date Smoking Tobacco: Never Assessed Sex and Gender Information Value Date Recorded Sex Assigned at Not on file Legal Sex Male 6:14 PM EDT Gender Identity Not on file Sexual Orientation Not on file documented as of this encounter Miscellaneous Notes * Telephone Encounter - Kei Terry - 02/18/2025 3:57 PM EDT Called about setting up consult appt documented in this encounter Plan of Treatment Not on file documented as of this encounter Visit Diagnoses Not on filedocumented in this encounter Care Teams Slider Assembler Relationship Specialty Start Date End Date Lili Frank PA [address] [place] [address] PCP - General 07/14/24 documented as of this encounter
--- OUTSIDE RECORDS SUMMARY | 2025-02-26 19:52 | XMS_ITS | Referral Summary ---
Author Organization [employer] ([place], [place], [place], [place]) Address [address] [place] [address] Care Team Providers Care Shift Coordinator Name Role Phone ZacLili Rodolfo GOMEZ Primary Care Provider [phone] Allergies No known active allergies Medications No [...] Date Colby rded Speak language other than Chinese at home Not on file 09/14/2023 Want [...] file Insurance BLUE CROSS/BLUE SHIELD Care Teams Shift Coordinator Relationship Specialty Start Date End Date Lili Frank PA-C [address] [place] [address] PCP - General Physician Information Systems Security Developer 09/14/23
--- OUTSIDE RECORDS SUMMARY | 2025-02-26 19:52 | XMS_ITS | Clinical Summary ---
Author Organization [employer] ([place], [place], [place], [place]) Address [address] [place] [address] Care Team Providers Care Orchardist Name Role Phone ZacLili Rodolfo GOMEZ Primary Care Provider [phone] Allergies No known active allergies Medications No [...] Date Colby rded Speak language other than Tajik at home Not on file 09/14/2023 Want [...] 2025 Insurance BLUE CROSS/BLUE SHIELD Care Teams Orchardist Relationship Specialty Start Date End Date Lili Frank, PATRICIA [address] [place] [address] PCP - General Physician Dining Server 09/14/23
--- OUTSIDE RECORDS SUMMARY | 2025-02-26 19:53 | XMS_ITS | Data Portability ---
Author Organization [facility] Address [address] [place] [address] Assessment No assessment recorded. Plan of Treatment Reminders Order Date Submit Date Provider Last Modified By Organization Details Last Modified Time Details Appointments FOLLOW UP 15 2024 11:30A M Lili Frank PA-C Not available Not available Not available Lab unlisted lab - toxassur e flex 19, [id number] 2024 025 [place] [facility] ([facility], [address] [place] [address], [place], [address], 10/30/2024 17:07:45 microalb umin/cre atinine, mass ratio, urine 2024 [address]25 [address] [facility], [place], [address], 10/27/2024 08:35:14 urinalys is, dipstick [address], [address] [place], [place] [address]ther [facility], [place], [address], 10/27/2024 08:51:28 Referral neurolog ist referral 2024 025 [email or web address] Not available 07/09/2024 13:02:46 Procedures colonosc opy screenin g (PROC) 2024 025 [email or web address] [facility], [address], [address], [place], [address], 11/26/2024 10:55:58 Surgeries None recorded . Imaging MRI, brain, w/o contrast 2024 025 [email or web address] [facility] Centralized Scheduling, [address] [facility], [place], [address], 12/15/2024 14:56:04 Medication Orders amoxicil zoe 875 mg-potas sium clavulan ate 125 mg tablet 2024 025 [facility], [address] [place] [address], [address], 02/14/2025 05:01:11 Valium 5 mg tablet 2024 025 [facility], [address] [place] [address], [address], 01/28/2025 16:48:54 Valium 5 mg tablet 2024 025 [facility] [address], [address] [place] [address], [address], 12/15/2024 14:42:33 amoxicil zoe 875 mg-potas sium clavulan ate 125 mg tablet 2024 025 [facility] [address], [address] [place] [address], [address], 02/14/2025 05:01:11 predniso ne 20 mg tablet 2024 025 [facility] [address], [address] [place] [address], [address], 12/27/2024 05:01:13 buspiron e 15 mg tablet 2024 025 [facility] [address], [address] [place] [address], [address], 01/28/2025 16:30:31 Valium 5 mg tablet 2024 025 [facility] [address], [address] [place] [address], [address], 10/27/2024 08:35:30 olanzapi ne 2.5 mg tablet 2024 025 [facility], [address] [place] [address], [address], 12/15/2024 14:30:29 meclizin e 25 mg tablet 2024 025 [facility], [address] [place] [address], [address], 10/27/2024 08:21:21 Valium 5 mg tablet 2024 025 [facility], [address] [place] [address], [address], 08/13/2024 10:59:28 cephalex in 500 mg tablet 2024 025 [facility], [address] [place] [address], [address], 10/27/2024 08:21:18 Valium 5 mg tablet 2024 025 [place] [address], [address] [place] [address], [address], 07/09/2024 11:58:55 Xyzal 5 mg tablet 2024 025 [place] [address], [address] [place] [address], [address], 10/27/2024 08:00:25 Patient TargetsNo targets recorded. Patient Instructions Encounter Date Encounter Id Patient Instructions Last Modified By Organization Details Last Modified Time 08/13/2024 [id number] chronic sinusitis: care instructions Not available 08/13/2024 10:59:21 12/15/2024 [id number] Acute Sinusitis: Care Instructions Not available 12/15/2024 14:42:25 Reason for Referral Neurologist Referral for Poo r short-term memory Referring Physician: Lili Frank, Family Medicine, Encounter Date: 07/09/2024 Results Created Date Observation Date Name Description Value Unit Range Abnormal Flag Note LastModifiedBy Organization Detail LastModifiedTime 06/15/19 25 06/16/2024 IRON AND TIBC iron bind.cap.(TI BC) 324 ug/dL 250-45 0 normal Not Available [facility] ([facility]) [address] [place], [address], 06/16/2024 12:30:17 06/15/19 25 06/16/2024 IRON AND TIBC UIBC 236 ug/dL 111-34 3 normal Not Available [facility] ([facility]) [address] [place], [address], 06/16/2024 12:30:17 06/15/19 25 06/16/2024 IRON AND TIBC iron 88 ug/dL 38-169 normal Not Available [facility] ([facility]) [address] [place], [address], 06/16/2024 12:30:17 06/15/19 25 06/16/2024 IRON AND TIBC iron saturation 27 % 15-55 normal Not Available [facility] ([facility]) [address] [place], [address], 06/16/2024 12:30:17 06/15/19 25 06/16/2024 VITAM IN B12 AND FOLAT E vitamin B12 351 pg/mL 232-12 45 normal Not Available [facility] ([facility]) [address] [place], [address], 06/16/2024 12:30:18 06/15/19 25 06/16/2024 VITAM IN B12 AND FOLAT E folate (folic acid), serum 9.4 NG/mL >3.0 normal A serum folat e delfina ntrat ion of less than 3.1 ng/mL is consi dered to repre sent clini jacobo defic iency . Not Available [facility] ([facility]) [address] [facility], [place], [address], 06/16/2024 12:30:18 06/15/19 25 06/15/2024 CA+PT H [...] - 65 < 8.6 Not Available [facility] ([facility]) [address] [facility], [place], [address], 06/16/2024 17:07:09 06/15/19 25 06/16/2024 CA+PT H INTAC T calcium COMMEN T mg/dL [facility] for addit ional lab resul ts. SEE - Not Available [facility] ([facility]) [address] [facility], [place], [address], 06/16/2024 17:07:09 06/15/19 25 06/16/2024 CA+PT H INTAC T PTH, intact 33 pg/mL 15-65 normal Not Available [facility] ([facility]) [address] [place], [address], 06/16/2024 17:07:09 06/15/19 25 06/16/2024 SPECI MEN STATU S REPOR T specimen status report COMMEN T Pleas e refer to the follo wing speci men for addit ional lab resul ts. TEST: [id number] 6 Calci um Panel : [id number] 1 SEE 84-1 Not Available [facility] ([facility]) [address] [facility], [place], [address], 06/16/2024 17:07:10 06/15/19 25 06/17/2024 CALCI UM calcium 10.0 mg/dL 8.6-10 .2 normal Not Available [facility] ([facility]) [address] [facility], [place], [address], 06/17/2024 17:07:09 06/15/19 25 06/16/2024 WRITT EN AUTHO RIZAT ION written authorizatio n Commen t Zack en Autho rizat ion Recei beulah. Autho rizat ion recei beulah from PER ORIGI NAL ORDER 034-2 - 41-0 06-16 Logge d by Myah Urbano as Not Available [facility] ([facility]) [address] [facility], [place], [address], 06/17/2024 17:07:10 10/28/1910/30/2024 TOXAS SURE FLEX 19, UR summary report FINAL ===== ===== ===== ===== ===== ===== ===== ===== ===== ===== ===== ===== ===== === ToxAs sure Flex 19, Ur ===== ===== ===== ===== ===== ===== ===== ===== ===== ===== ===== ===== ===== === Test Resul t Flag Units Drug Prese nt Desme thyld iazep am 111 ng/mg creat Oxaze jaun 403 ng/mg creat Temaz epam 161 ng/mg creat Desme thyld iazep am, oxaze jaun, and temaz epam are benzo diaze pine drugs , but may also be prese nt as commo n metab olite s of other benzo diaze pine drugs , inclu ding diaze jaun. ===== ===== ===== ===== ===== ===== ===== ===== ===== ===== ===== ===== ===== === Test Resul t Flag Units Ref Range Creat inine 178 mg/dL >=20 ===== ===== ===== ===== ===== [...] ===== ===== ===== === Not Available [facility] ([facility]) [address] [place], [address], 10/30/2024 17:07:45 10/28/19 25 10/30/2024 TOXAS SURE FLEX 19, UR pdf . Not Available [facility] ([facility]) [address] [facility], [place], [address], 10/30/2024 17:07:45 10/28/19 25 10/30/2024 TOXAS SURE FLEX 19, UR creatinine 178 mg/dL >=20 REFER ENCE RANGE : Ref Range >=20 Not Available [facility] ([facility]) [address] [place], [address], 10/30/2024 17:07:45 10/28/19 25 10/30/2024 TOXAS SURE FLEX 19, UR amphetamines ia Negati ve NG/mL cutoff :300 Not Available [facility] ([facility]) [address] [place], [address], 10/30/2024 17:07:45 10/28/19 25 10/30/2024 TOXAS SURE FLEX 19, UR benzodiazepi yanet +POSIT BRANDON+ Not Available [facility] ([facility]) [address] [place], [address], 10/30/2024 17:07:45 10/28/19 25 10/30/2024 TOXAS SURE FLEX 19, UR diazepam Not Detect ed NG/mg _crea t Not Available [facility] ([facility]) [address] [place], [address], 10/30/2024 17:07:45 10/28/19 25 10/30/2024 TOXAS SURE FLEX 19, UR desmethyldia zepam 111 NG/mg _crea t Not Available [facility] ([facility]) [address] [place], [address], 10/30/2024 17:07:45 10/28/19 25 10/30/2024 TOXAS SURE FLEX 19, UR oxazepam 403 NG/mg _crea t Not Available [facility] ([facility]) [address] [place], [address], 10/30/2024 17:07:45 10/28/19 25 10/30/2024 TOXAS SURE FLEX 19, UR temazepam 161 NG/mg _crea t Expec james metab olism [...] jaun Oxaze jaun: None Not Available [facility] ([facility]) [address] [place], [address], 10/30/2024 17:07:45 10/28/19 25 10/30/2024 TOXAS SURE FLEX 19, UR alprazolam Not Detect ed NG/mg _crea t Not Available [facility] ([facility]) [address] [place], [address], 10/30/2024 17:07:45 10/28/19 25 10/30/2024 TOXAS SURE FLEX 19, UR alpha-hydrox yalprazolam Not Detect ed NG/mg _crea t Not Available [facility] ([facility]) [address] [place], [address], 10/30/2024 17:07:45 10/28/19 25 10/30/2024 TOXAS SURE FLEX 19, UR desalkylflur azepam Not Detect ed NG/mg _crea t Not Available [facility] ([facility]) [address] [place], [address], 10/30/2024 17:07:45 10/28/19 25 10/30/2024 TOXAS SURE FLEX 19, UR lorazepam Not Detect ed NG/mg _crea t Not Available [facility] ([facility]) [address] [place], [address], 10/30/2024 17:07:45 10/28/19 25 10/30/2024 TOXAS SURE FLEX 19, UR alpha-hydrox ytriazolam Not Detect ed NG/mg _crea t Not Available [facility] ([facility]) [address] [facility], [place], [address], 10/30/2024 17:07:45 10/28/19 25 10/30/2024 TOXAS SURE FLEX 19, UR clonazepam Not Detect ed NG/mg _crea t Not Available [facility] ([facility]) [address] [place], [address], 10/30/2024 17:07:45 10/28/19 25 10/30/2024 TOXAS SURE FLEX 19, UR 7-aminoclona zepam Not Detect ed NG/mg _crea t Not Available [facility] ([facility]) [address] [place], [address], 10/30/2024 17:07:45 10/28/19 25 10/30/2024 TOXAS SURE FLEX 19, UR midazolam Not Detect ed NG/mg _crea t Not Available [facility] ([facility]) [address] [place], [address], 10/30/2024 17:07:45 10/28/19 25 10/30/2024 TOXAS SURE FLEX 19, UR alpha-hydrox ymidazolam Not Detect ed NG/mg _crea t Not Available [facility] ([facility]) [address] [place], [address], 10/30/2024 17:07:45 10/28/19 25 10/30/2024 TOXAS SURE FLEX 19, UR flunitrazepa m Not Detect ed NG/mg _crea t Not Available [facility] ([facility]) [address] [place], [address], 10/30/2024 17:07:45 10/28/19 25 10/30/2024 TOXAS SURE FLEX 19, UR desmethylflu nitrazepam Not Detect ed NG/mg _crea t Not Available [facility] ([facility]) [address] [place], [address], 10/30/2024 17:07:45 10/28/19 25 10/30/2024 TOXAS SURE FLEX 19, UR cocaine metabolite ia Negati ve NG/mL cutoff :150 Not Available [facility] ([facility]) [address] [place], [address], 10/30/2024 17:07:45 10/28/19 25 10/30/2024 TOXAS SURE FLEX 19, UR ethanol biomarkers ia Negati ve NG/mL cutoff :500 Not Available [facility] ([facility]) [address] [place], [address], 10/30/2024 17:07:45 10/28/19 25 10/30/2024 TOXAS SURE FLEX 19, UR cannabinoids ia Negati ve NG/mL cutoff :20 Not Available [facility] ([facility]) [address] [place], [address], 10/30/2024 17:07:45 10/28/19 25 10/30/2024 TOXAS SURE FLEX 19, UR 6-acetylmorp zoraida ia Negati ve NG/mL cutoff :10 Not Available [facility] ([facility]) [address] [place], [address], 10/30/2024 17:07:45 10/28/19 25 10/30/2024 TOXAS SURE FLEX 19, UR opiate class ia Negati ve NG/mL cutoff :100 Not Available [facility] ([facility]) [address] [place], [address], 10/30/2024 17:07:45 10/28/19 25 10/30/2024 TOXAS SURE FLEX 19, UR oxycodone class ia Negati ve NG/mL cutoff :100 Not Available [facility] ([facility]) [address] [place], [address], 10/30/2024 17:07:45 10/28/19 25 10/30/2024 TOXAS SURE FLEX 19, UR methadone ia Negati ve NG/mL cutoff :100 Not Available [facility] ([facility]) [address] [place] [address], [address], 10/30/2024 17:07:45 10/28/19 25 10/30/2024 TOXAS SURE FLEX 19, UR methadone mtb ia Negati ve NG/mL cutoff :100 Not Available [facility] ([facility]) [address] [place], [address], 10/30/2024 17:07:45 10/28/19 25 10/30/2024 TOXAS SURE FLEX 19, UR buprenorphin e ia Negati ve NG/mL cutoff :5.0 Not Available [facility] ([facility]) [address] [place], [address], 10/30/2024 17:07:45 10/28/19 25 10/30/2024 TOXAS SURE FLEX 19, UR fentanyl ia Negati ve NG/mL cutoff :2.0 Not Available [facility] ([facility]) [address] [place] [address], [address], 10/30/2024 17:07:45 10/28/19 25 10/30/2024 TOXAS SURE FLEX 19, UR tapentadol ia Negati ve NG/mL cutoff :200 Not Available [facility] ([facility]) [address] [place], [address], 10/30/2024 17:07:45 10/28/19 25 10/30/2024 TOXAS SURE FLEX 19, UR propoxyphene ia Negati ve NG/mL cutoff :300 Not Available [facility] ([facility]) [address] [place], [address], 10/30/2024 17:07:45 10/28/19 25 10/30/2024 TOXAS SURE FLEX 19, UR tramadol ia Negati ve NG/mL cutoff :200 Not Available [facility] ([facility]) [address] [place], [address], 10/30/2024 17:07:45 10/28/19 25 10/30/2024 TOXAS SURE FLEX 19, UR methylphenid ate ia Negati ve NG/mL cutoff :100 Not Available [facility] ([facility]) [address] [place], [address], 10/30/2024 17:07:45 10/28/19 25 10/30/2024 TOXAS SURE FLEX 19, UR barbiturates ia Negati ve NG/mL cutoff :200 Not Available [facility] ([facility]) [address] [place], [address], 10/30/2024 17:07:45 10/28/19 25 10/30/2024 TOXAS SURE FLEX 19, UR phencyclidin e ia Negati ve NG/mL cutoff :25 Not Available [facility] ([facility]) [address] [place], [address], 10/30/2024 17:07:45 10/28/19 25 10/30/2024 TOXAS SURE FLEX 19, UR gabapentin ia Negati ve ug/mL cutoff :1.0 Not Available [facility] ([facility]) [address] [place], [address], 10/30/2024 17:07:45 10/28/19 25 10/30/2024 TOXAS SURE FLEX 19, UR anticonvulsa nts Negati ve Not Available [facility] ([facility]) [address] [place], [address], 10/30/2024 17:07:45 10/28/19 25 10/30/2024 TOXAS SURE FLEX 19, UR pregabalin Not Detect ed Not Available [facility] ([facility]) [address] [place], [address], 10/30/2024 17:07:45 10/28/19 25 10/30/2024 TOXAS SURE FLEX 19, UR carisoprodol ia Negati ve NG/mL cutoff :100 Not Available [facility] ([facility]) [address] [facility], [place], [address], 10/30/2024 17:07:45 10/28/19 25 10/27/2024 urina lysis , dipst ick Leukocytes Negati ve Not Available [address], [address], 10/27/2024 08:37:10 10/28/19 25 10/27/2024 urina lysis , dipst ick Nitrite negati ve Not Available [address], [address], 10/27/2024 08:37:10 10/28/19 25 10/27/2024 urina lysis , dipst ick Urobilinogen .2 Not Available [address], [place], [address], 10/27/2024 08:37:10 10/28/19 25 10/27/2024 urina lysis , dipst ick Protein Negati ve Not Available [address], [address], 10/27/2024 08:37:10 10/28/19 25 10/27/2024 urina lysis , dipst ick pH 5.5 Not Available [address], [address], 10/27/2024 08:37:10 10/28/19 25 10/27/2024 urina lysis , dipst ick Blood Non-He molyze d: Trace Not Available [address], [address], 10/27/2024 08:37:10 10/28/19 25 10/27/2024 urina lysis , dipst ick Specific Deloit 1.025 Not Available [address], [place], [address], 10/27/2024 08:37:10 10/28/19 25 10/27/2024 urina lysis , dipst ick Ketone Negati ve Not Available [address], [address], 10/27/2024 08:37:10 10/28/19 25 10/27/2024 urina lysis , dipst ick Bilirubin Negati ve Not Available [address], [address], 10/27/2024 08:37:10 10/28/19 25 10/27/2024 urina lysis , dipst ick Glucose Negati ve Not Available [address], [place], [address], 10/27/2024 08:37:10 10/28/19 25 10/27/2024 urina lysis , dipst ick Appearance Clear Not Available [address], [address], 10/27/2024 08:37:10 10/28/19 25 10/27/2024 urina lysis , dipst ick Color Yellow Not Available [address], [address], 10/27/2024 08:37:10 10/28/19 25 10/27/2024 micro album in/cr eatin ine, mass ratio , urine Microalbumin 30 mg/L Not Available [address], [place], [address], 10/27/2024 08:08:05 10/28/19 25 10/27/2024 micro album in/cr eatin ine, mass ratio , urine Creatinine 300 mg/dL Not Available [facility] [address] [facility] [facility], [place], [address], 10/27/2024 08:08:05 10/28/19 25 10/27/2024 micro album in/cr eatin ine, mass ratio , urine Ratio <30 mg/g Not Available [facility] [address] [facility], [place], [address], 10/27/2024 08:08:05 07/28/19 home sleep study No observ ation record ed. [facility] [address] [facility] [address], [place], [address], 08/06/2024 10:42:12 12/16/19 25 10/30/2024 MRI, brain + brain stem, w/wo contr ast No observ ation record ed. [email or web address] [facility] (Med Record) [address], [place], [address], 12/15/2024 14:56:05 Result Notes None recorded. Problems Name Problem SNOMED Code Status Onset Date Resolution Date Notes Provider Name and Address Organization Details Recorded Time Generaliz ed anxiety disorder 08630545 Active 2023 NOAM Marin [address] [place] [address], [address], [place] [employer] 5 12:11:32 Dental abscess 590539072 Completed 202310/29/2024 NOAM Marin [address] [place] [address], [address] 8, [place] [employer] 5 11:42:35 Gastroeso phageal reflux disease without esophagit is 903385002 Active 2023 NOAM Marin [address] [place] [address], [address] 8, [employer] 12:11:39 Acute sinusitis 32881114 Completed 202410/29/2024 NOAM Marin [address] [place] [address], [address]40[address] 8, [employer] 11:42:24 Daytime somnolenc e 747357029059 Active 2024 NOAM Marin [address] [place] [address], [address] 8, [employer] 14:32:03 Alkaline phosphata se above reference range 569865314 Active 2024 NOAM Marin [address] [place] [address], [address] 8, [employer] 11:42:27 Poor short-ter m memory 773542381 Active 2024 NOAM Marin [address] [place] [address], [address] 8, [employer] 11:42:41 Chronic sinusitis 61882664 Completed 202410/29/2024 NOAM Marin [address] [place] [address], 239[address] 8, [employer] 11:42:33 Vertigo 553019390 Active 2024 NOAM Marin [address] [place] [address], 939[address]992 8, [place] [employer] 11:42:46 Essential hypertens ion 60718090 Active 2024 NOAM Marin [address] [place] [address], 717[address]706 8, [employer] 5 11:42:37 Anxiety 64049410 Active 2024 NOAM Marin [address] [place] [address], 877[address] 8, [employer] 5 11:42:29 Serum creatinin e above reference range 665877377 Active 2024 NOAM Marin [address] [place] [address], 233[address] 8, [employer] 5 11:42:43 Impaired cognition 330130308 Active 2024 NOAM Marin [address] [place] [address], 809[address]-477 8, [employer] 5 11:42:39 Acute maxillary sinusitis 83502717 Active 2024 NOAM Marin [address] [place] [address], 26[address]-170 8, [employer] 14:41:34 Infection of tooth 012835365 Active 2024 NOAM Marin [address] [place] [address], 98[address] 8, [employer] 16:44:52 Problem Notes None recorded. Medical Equipment None [...] Available Not Available prednisone 20 mg tablet Take 1 tablet twice a day by oral route as directed for 5 days. 12/27 completed Not Available Not Available Not Available metoprolol succinate ER 100 mg tablet,exte nded release 24 hr TAKE 1 TABLET BY MOUTH ONCE DAILY active Not Available Not Available No t Available olanzapine 5 mg tablet TAKE 1 TABLET BY MOUTH ONCE DAILY AT BEDTIME FOR 90 DAYS active Not Available Not Available No t Available amlodipine 2.5 mg tablet TAKE 1 TABLET BY MOUTH ONCE DAILY FOR 15 DAYS 03/13 completed Not Available Not Available Not Available amlodipine 5 mg tablet TAKE 1 TABLET BY MOUTH ONCE DAILY active Not Available Not Available No t Available olanzapine 2.5 mg tablet Take 2 tablets every day by oral route at bedtime for 90 days, for anxiety. 12/15 completed Not Available Not Available Not Available aspirin 81 mg tablet,bob yed release TAKE 1 TABLET BY MOUTH ONCE DAILY active Not Available Not Available No t Available pantoprazol e 20 mg tablet,obb yed release TAKE 1 TABLET BY MOUTH ONCE DAILY 01/28 completed Not Available Not Available Not Available amoxicillin 875 mg tablet TAKE 1 [...] completed Not Available Not Available Not Available pantoprazol e 40 mg tablet,bob yed release TAKE 1 TABLET BY MOUTH ONCE DAILY active Not Available Not Available No t Available buspirone 10 mg tablet TAKE 1 [...] TABLET BY MOUTH TWICE DAILY NEEDED FOR 30 DAYS FOR SEVERE AND PERSISTEN T ANXIETY ONLY active Not Available Not Available No t Available amoxicillin 875 mg-potassiu m clavulanate 125 mg tablet Take 1 tablet every 12 hours by oral route as directed for 10 days, for infection . 02/14 completed Not Available Not Available Not Available buspirone 15 mg tablet TAKE 1 TABLET BY MOUTH TWICE DAILY DIRECTED 01/28 completed Not Available Not Available Not Available levocetiriz ine 5 mg tablet TAKE 1 TABLET BY MOUTH ONCE DAILY 10/27 completed Not Available Not Available Not Available desvenlafax ine succinate ER 50 mg tablet,exte nded release 24 hr TAKE 1 TABLET BY MOUTH ONCE DAILY 03/13 completed Not Available Not Available Not Available Nurte ODT 75 mg disintegrat ing tablet DISSOLVE [...] in Arterial blood by Pulse oximetry Systolic And Diastolic Provider Name and Address Organization Details Last Updated DateTime 177.8 cm 26 kg/m2 73441.3 2 g 98.8 [degF] 77 /min 97 % 97 % 138/84 mm[Hg] Concepcion Nguyen [employer] 5 11:14:49 Date Recorded Body height Body mass index (BMI) Body weight Body temperature Oxygen saturation Oxygen saturation in Arterial blood by Pulse oximetry Heart rate Systolic And Diastolic Provider Name and Address Organization Details Last Updated DateTime 5 177.8 cm 26.9 kg/m2 96555.4 9 g 98.2 [degF] 97 % 97 % 74 /min 124/84 mm[Hg] [employer] 5 10:31:53 Date Recorded Body height Body mass index (BMI) Body weight Oxygen saturation Oxygen saturation in Arterial blood by Pulse oximetry Heart rate Body temperature Systolic And Diastolic Provider Name and Address Organization Details Last Updated DateTime 5 177.8 cm 25.7 kg/m2 36037.0 3 g 98 % 98 % 78 /min 98.1 [degF] 136/80 mm[Hg] [employer] 5 08:04:19 Date Recorded Body height Body mass index (BMI) Body weight Oxygen saturation Oxygen saturation in Arterial blood by Pulse oximetry Heart rate Body temperature Systolic And Diastolic Provider Name and Address Organization Details Last Updated DateTime 5 177.8 cm 25.5 kg/m2 71224.2 9 g 98 % 98 % 80 /min 98.2 [degF] 128/84 mm[Hg] [employer] 5 14:29:21 Date Recorded Body height Body mass index (BMI) Body weight Heart rate Oxygen saturation Oxygen saturation in Arterial blood by Pulse oximetry Body temperature Systolic And Diastolic Provider Name and Address Organization Details Last Updated DateTime 5 177.8 cm 25.9 kg/m2 47722.0 6 g 78 /min 96 % 96 % 98.1 [degF] 130/80 mm[Hg] [employer] 5 16:12:58 Social History Question Answer Notes LastModified by Organizat ion Details LastModified Time Tobacco Smoking Status Never Smoker [employer] 03/13/2024 11:15:54 Do You Have An Advance [...] Information not available 03/13/2024 What Type Of Literacy Tutor Do You Use? None Information not available 03/13/2024 In The 14 Days Before Symptom Onset, Have You Had Close Contact With A Laboratory-confir med COVID-19 While That Case Was Ill? No [email or web address] Information not available 07/09/2024 In The 14 [...] Or The Highest Degree You Have Received? [id number] Information not available 03/13/2024 Who Is Your Employer? [employer] Information not available 03/13/2024 Have There Been Any Changes To Your Family Or Social Situation? No Information no t available 03/13/2024 Are There Any Guns Present In Your Home? Yes Information not available 03/13/2024 Which Of Your Hands Is Dominant? Right Information not available 03/13/2024 What Is Your Home Situation? Mother Information not available 03/13/2024 Do You Have A Medical Power Of Senior Director Creative Services? No Information not available 03/13/2024 What Was The Date Of Your Most Recent Tobacco Screening? 01/28/2025 Information not available 01/28/2025 Are There Any Occupational Health Risks Where [...] What Date Was Tobacco Cessation Counseling Provided? 01/28/2025 Information not available 01/28/2025 Have You Recently Traveled Abroad? No Information [...] not available 03/13/2024 Are you able to walk independently without assistance or assistive devices? YES[employer]OREST Information not available 03/13/2024 Do you have difficulty doing errands alone? No Information not available 03/13/2024 Are you able to care for yourself independently? Yes Information not available 03/13/2024 Do you have difficulty dressing, bathing, grooming, or toileting? No Information not available 03/13/2024 Do you or have you ever used e-cigarettes or vape? Never used electronic cigarettes Information not available 03/13/2024 What is your exercise level? None Information not available 03/13/2024 Mental Status Question Answer Note LastModified by Organizat ion Details LastModified Time Do you feel stressed (tense, restless, nervous, or anxious, or unable to sleep at night)? [id number] Information not available 03/13/2024 Do you have [...] Emergency room visit since last appointm ent. N COPD N Depression N Dermatologic Disorders [...] PF, 0.5 mL 08/16/2020 completed Francisca gonzalez [facility] [employer] 05/25/2024 11:40:09 Past Encounters Encounter ID Performer Location Encounter Start Date Encounter Closed Date Diagnosis/Indication Diagnosis SNOMED-CT Code Diagnosis ICD10 Code Diagnosis IMO Codes Diagnosis Note [id number] Lili Frank [address] [address] 03/13/2024 11:05:52 03/13/2024 11:46:23 Long-term current use of drug therapy 329908064 Z79.899 Generalize d anxiety disorder 40777013 F41.1 Dental abscess 597937036 K04.7 Gastroesop hageal reflux disease without esophagitis 392704051 K21.9 [id number] NOAM Marin [address] [address] 05/25/2024 11:29:53 05/25/2024 12:09:16 Adult health examination 108493968 Z00.00 Screening for malignant neoplasm of prostate 704353314 Z12.5 Fatigue 63190586 R53.83 Acute sinusitis 91711706 J01.90 Generalize d anxiety disorder 34809090 F41.1 [id number] NOMA Marin [address] [address] 06/15/2024 10:54:29 06/15/2024 12:40:55 Daytime somnolence 2647862072 00 R40.0 Alkaline p hosphatase above reference range 304950631 R74.8 Check PTH [id number] NOAM Marin [address] [address] 07/09/2024 11:05:12 07/09/2024 11:29:58 Poor short-term memory 844520645 R41.3 Do home sleep study when he receives it Generalize d anxiety disorder 21732289 F41.1 [id number] NOAM Marin [address] [address] 08/13/2024 10:24:44 08/13/2024 11:36:58 Chronic sinusitis 61627414 J32.9 Vertigo 835721898 R42 Gastroesop hageal reflux disease without esophagitis 172838703 K21.9 Generalize d anxiety disorder 52385338 F41.1 [id number] NOAM Marin [address] [address] 10/27/2024 07:46:58 10/27/2024 08:52:50 Long-term current use of drug therapy 407946533 Z79.899 78909866 Anxiety 36715089 F41.9 10587 RF Valium but discussed with patient that it is not intended to be meterman management of anxiety. Continue Buspar. Add Olanzapine at bedtime. Generalize d anxiety disorder 66373447 F41.1 Serum crea tinine above reference range 379489397 R79.89 584642 Serum creatinine was 1.6 in ER which is stable for him Impaired cognition 61317 6002 R41.89 7163203676 Continue follow up with neurology. Has MRI later this week. Overweight in adulthood with body mass index of 25 or more but less than 30 127615857 Z68.25 505040 Screening for malignant neoplasm of colon 456262070 Z12.11 396050 [id number] NOAM Marin [address] [address] 12/15/2024 14:19:55 12/15/2024 14:56:10 Acute maxillary sinusitis 33934471 J01.00 09096101 Generalize d anxiety disorder 97903327 F41.1 [id number] NOAM Marin [facility] [address] [place] [address] 01/28/2025 16:08:19 01/28/2025 17:07:48 Infection of tooth 954706666 K04.7 315172 Anxiety 82494813 F41.9 71103 Generalize d anxiety disorder 03595559 F41.1 Health Concerns Section Related Observation LastModified by Organization Detai ls LastModified Time None Recorded Concern Status LastModified by Organization Details LastModified Time None Recorded Advance Directives Directive N: Payers Insurance Date Sequence Insurance Name Policy Number Policy Carrington Covered Member ID Carrington Member ID Guarantor Name 01/25/2025 1 [place] [id number] 1 Julián Meraz [id number] Julián Meraz 03/13/2024 2 [employer] Julián Meraz [id number] Julián Meraz Notes Date Note Type Note Provider Name and Address Organization Details Recorded Time 07/09/2024 text/html ROS as noted in the HPI Patient still complaining of brain fog.States he has trouble remembering things.Seems worse when he's outside/at work and better at home.Took a sinus pill and that seemed to helpHas not gotten home sleep study yetNeeds refills on Valium for anxietyNeurology appt in October NOAM Marin [address] [place] [address], [address], [facility] [employer] 07/09/2024 16:11:07 08/13/2024 text/html ROS as noted in the HPI Patient presents for followup. Still c/o brain [...] anxiety. Due for refills on Valium. NOAM aMrin [address] [place], [address], [employer], [employer] 08/17/2024 11:06:01 10/27/2024 text/html ROS as noted in the HPI Patient presents for followup.Seen in ER last [...] is helping as well. NOAM Marin [address] [place], [address], [employer], [employer]. 10/29/2024 11:44:45 12/15/2024 text/html ROS as noted in the HPI Patient has cough, runny nose, sore throat X 3-4 days. No fever. Has pressure in his cheeks. Feels like his brain fog might be coming back. NOAM Marin [address] [place], [address], [employer] 12/17/2024 15:43:16 01/28/2025 text/html ROS as noted in the HPI Patient presents for followupStates he is feeling better. Saw neurology a few days ago. She wants to repeat a sleep study.His anxiety has been better. Brain fog has been better.He thinks he has an infection in his gum. NOAM Marin [address] [place], [address], [employer], [employer]. 01/28/2025 17:06:52
--- OUTSIDE RECORDS SUMMARY | 2025-02-26 19:53 | XMS_ITS | Continuity of Care Document ---
Author Organization [facility] [employer] [facility] Address [address] [place] [address] Assessment No assessment recorded. Plan of Treatment Reminders Order Date Submit Date Provider Last Modified By Organization Details Last Modified Time Details Appointments FOLLOW UP 15 2024 11:30A M Lili Frank PA-C Not available Not available Not available Lab None recorded. Referral None recorded. Procedures None recorded. Surgeries None recorded. Imaging None recorded. Medication Orders amoxicill in 875 mg-potass ium clavulana te 125 mg tablet 2024 025 [facility] [address], [address] [place] [address], [id number], 02/14/2025 05:01:11 Valium 5 mg tablet 2024 025 [facility] [address], [address] [place] [address], [id number], 01/28/2025 16:48:54 Patient TargetsNo targets recorded. Patient InstructionsNo instructions recorded. Reason for Referral None Reported. Problems Name Problem SNOMED Code Status Onset Date Resolution Date Notes Provider Name and Address Organization Details Recorded Time Generaliz ed anxiety disorder 83290735 Active 2023 NOAM Marin [address] [place] [address], [address], [place] [facility] 12:11:32 Dental abscess 968371621 Completed 202310/29/2024 NOAM Marin [address] [place] [address], [address], [employer] 11:42:35 Gastroeso phageal reflux disease without esophagit is 434991295 Active 2023 NOAM Marin [address] [place] [address], [address], [employer] 12:11:39 Acute sinusitis 50006066 Completed 202410/29/2024 NOAM Marin [address] [place] [address], [address], [employer] 11:42:24 Daytime somnolenc e 190751459184 Active 2024 NOAM Marin [address] [place] [address], [address], [employer] 14:32:03 Alkaline phosphata se above reference range 280848197 Active 2024 NOAM Marin [address] [place] [address], [address], [employer] 11:42:27 Poor short-ter m memory 514190408 Active 2024 NOAM Marin [address] [place] [address], [address], [employer] 11:42:41 Chronic sinusitis 05931202 Completed 202410/29/2024 NOAM Marin [address] [place] [address], [address], [employer] 5 11:42:33 Vertigo 699218512 Active 2024 NOAM Marin [address] [place] [address], [address], [employer] 11:42:46 Essential hypertens ion 99100024 Active 2024 NOAM Marin [address] [place] [address], [address], [employer] 11:42:37 Anxiety 23363223 Active 2024 NOAM Marin [address] [place] [address], [address], [employer] 11:42:29 Serum creatinin e above reference range 448115678 Active 2024 NOAM Marin [address] [place] [address], [address], [employer] 5 11:42:43 Impaired cognition 127915361 Active 2024 NOAM Marin [address] [place] [address], [address], [employer] 5 11:42:39 Acute maxillary sinusitis 86773002 Active 2024 NOAM Marin [address] [place] [address], [address], [employer] 5 14:41:34 Infection of tooth 151428441 Active 2024 NOAM Marin [address] [place] [address], [address], [employer] 16:44:52 Problem Notes None recorded. Medical [...] completed Not Available Not Available Not Available [facility] ODT 75 mg disintegrat ing tablet DISSOLVE [...] Updated DateTime 5 177.8 cm 25.9 kg/m2 54837.0 6 g 78 /min 96 % 96 % 98.1 [degF] 130/80 mm[Hg] Francisca Villarreal [employer] 5 16:12:58 Social History Question Answer Notes LastModified by Organizat ion Details LastModified Time Tobacco Smoking Status Never Smoker Francisca gonzalez, [employer]. 03/13/2024 11:15:54 Do You Have An Advance [...] Information not available 03/13/2024 What Type Of Team Member Do You Use? None Information not available 03/13/2024 In The 14 Days Before Symptom Onset, Have You Had Close Contact With A Laboratory-confir med COVID-19 While That Case Was Ill? No [email or web address] Information not available 07/09/2024 In The 14 Days Before Symptom Onset, Have You Had Close Contact With A Person Who Is Under Investigation For COVID-19 While That Person Was Ill? No [email or web address] Information not available 07/09/2024 Have You Been [...] Or The Highest Degree You Have Received? [id number] Information not available 03/13/2024 Who Is Your Employer? [employer] Dept Information not available 03/13/2024 Have There Been Any Changes To Your Family Or Social Situation? No Information no t available 03/13/2024 Are There Any Guns Present In Your Home? Yes Information not available 03/13/2024 Which Of Your Hands Is Dominant? Right Information not available 03/13/2024 What Is Your Home Situation? Mother Information not available 03/13/2024 Do You Have A Medical Power Of Wall Scraper? No Information not available 03/13/2024 What Was [...] Status Question Answer Note LastModified by Organizat [employer] Details LastModified Time Do you feel stressed (tense, restless, nervous, or anxious, or unable to sleep at night)? [id number] Information not available 03/13/2024 Do you have [...] COPD N Depression N Dermatologic Disorders N Lung Disease N Hypothyroidism N Developmental or Behavioral Disorders N Defects or Inherited Disease N Breast Problem N Difficulty Swallowing N Anesthesia Complications N History of STI N Anxiety Disorder Y Meniere's disease N Autoimmune disease N Muscle, Joint, or Bone Problems N Vision or Eye Problems N Arthritis N Infertility N Polyps N Mental Disorder N Congenital Anomalies N Acid Reflux (GERD) Y Cancer N Stroke N Neurologic/Epilepsy N Endometriosis N Bladder or Kidney Problems N High Cholesterol Y Liver Disease N Psychiatric/Mental Health Condition N Organ Transplant N Fibromyalgia N Headaches N Schizophrenia N Dialysis N Kidney Disease N Allergies/Hayfever N Heart [...] vaccine, vector-nr, rS-Ad26, PF, 0.5 mL 08/16/2020 valarie Villarreal [facility] [place] [facility] [employer] [employer] 05/25/2024 11:40:09 Past Encounters Encounter ID Performer Location Encounter Start Date Encounter Closed Date Diagnosis/Indication Diagnosis SNOMED-CT Code Diagnosis ICD10 Code Diagnosis IMO Codes Diagnosis Note [id number] NOAM Marin [facility] [address] [place] [address] 01/28/2025 16:08:19 01/28/2025 17:07:48 Infection of tooth 252559473 K04.7 533689 Anxiety 31384548 F41.9 87092 Generalize d anxiety disorder 34385577 F41.1 Health Concerns Section Related Observation LastModified by Organization Detai ls LastModified Time None Recorded Concern Status LastModified by Organization Details LastModified Time None Recorded Payers Encounter Date Sequence Insurance Name Policy Number Policy Carrington Covered Member ID Carrington Member ID Guarantor Name 01/28/2025 1 [place] [id number] 1 Julián Meraz [id number] Julián Meraz 01/28/2025 2 [employer] Julián Meraz [id number] Julián Meraz Notes Date Note Type Note Provider Name and Address Organization Details Recorded Time 01/28/2025 text/html ROS as noted in the HPI Patient presents for followupStates he is feeling better. Saw neurology a few days ago. She wants to repeat a sleep study.His anxiety has been better. Brain fog has been better.He thinks he has an infection in his gum. NOAM Marin [address] [place] [address], [place], [address], [facility] [employer] 01/28/2025 17:06:52
--- OUTSIDE RECORDS SUMMARY | 2025-02-26 19:53 | XMS_ITS | Clinical Summary ---
Author Organization Healthcare Address [address] [place] [address] Care Team Providers Care Pediatric Audiologist Name Role Phone Lili Frank NOAM Primary Care Provider [phone] Encounters Date Type Department Care Team Description 02/18/2025 Telephone [facility] [place] [facility] [address] [place] [address] Sagar Meraz MD from Last 3 Months Immunizations Immunization Administration Dates Next Due TD (adult), 2 Lf tetanus tox oid, preservative free, adsorbed 01/30/2010 Social History Tobacco Use Types Packs/Day Years Used Date Smoking Tobacco: Never Assessed Sex and Gender Information Value Date Recorded Sex Assigned at Not on file Legal Sex Male 6:14 PM EDT Gender Identity Not on file Sexual Orientation Not on file Plan of Treatment Health Maintenance Due Date Last Done Comments [facility]-Depression Screening 1964 [facility]-/Child/Adol SDOH Screenings 1964 [facility]- SDOH Screenings 1982 [facility]-Adult SDOH Screenings 1982 CT Colonography 2009 Colonoscopy 2009 FIT-DNA 2009 FIT 2009 FOBT 2009 Sigmoidoscopy 2009 [facility]-Colorectal Cancer Screening 2009 [facility]-DTaP,Tdap,and Td Vaccine s (1 - Tdap) 01/31/2010 01/30/2010 [facility]-Pneumococcal Vaccine: 50 + Years (1 of 1 - PCV) 2014 [facility]-Zoster Vaccines (1 of 2) 2014 MPZ-ULUZM-14 Vaccine (2 - 20 25-26 season) 2025 08/16/2020 [facility]-Influenza Vaccine (#1) 2025 [facility]-RSV Vaccine: 60+ Years o r [...] age to complete this topic Care Teams Pediatric Audiologist Relationship Specialty Start Date End Date Lili Frank PA [address] [place] [address] PCP - General 07/14/24
== END ==
LOC: SL 19:50
PROVIDERS: PCP Physician Assistant; Visit Provider Specialist
DX: G47.30 Sleep apnea, unspecified (principal)